=== PATIENT | male | born 1960 | race Two or more races ===

== ENCOUNTER 2020-06-01 09:52 | Outpatient (REF) | payer OTHER, SELFPAY ==
--- NOTE | 2020-06-01 09:59 | XR_ITS ---
EXAMINATION: XR CERVICAL SPINE XR LUMBAR SPINE CLINICAL INFORMATION: Neck and low back pain. COMPARISON: Lumbar spine study of 12/06/2011. TECHNIQUE: Three-view lumbar spine and five-view cervical spine. FINDINGS: There is no evidence of acute fracture of the cervical spine. No abnormal prevertebral soft tissue swelling is seen. There is narrowing of the C2-C3, C4-C5, and C6-C7 disc spaces with marginal spurring. There is partial fusion of the C2 and C3 vertebral bodies. Multilevel degenerative spurring is present. There is some anterior neural foramina encroachment related to spurring of the joints of [place] on the right at the C6-C7 disc space level and on the left at the C3-C4 disc space. Degenerative facet changes are seen C3 through C6 bilaterally. There are 5 nonrib-bearing lumbar vertebra. There is scoliosis convex right. No acute fracture, spondylolisthesis, or spondylolysis is present. There is bilateral facet arthropathy at the L5-S1 level and on the left side at the L3-L4 level. There is disc space narrowing seen at the L3-L4 level. Pedicles are intact. Sacroiliac joints appear unremarkable. The above findings have increased since study of 12/06/2011. XR/XR cervical spine min 6V IMPRESSION: Cervical spondylosis as described without evidence of acute fracture. Some progression in degenerative disc disease with facet arthropathy in the lumbar spine without acute fracture, spondylolisthesis, or spondylolysis identified.
--- NOTE | 2020-06-01 10:01 | XR_ITS ---
EXAMINATION: XR CERVICAL SPINE XR LUMBAR SPINE CLINICAL INFORMATION: Neck and low back pain. COMPARISON: Lumbar spine study of 12/06/2011. TECHNIQUE: Three-view lumbar spine and five-view cervical spine. FINDINGS: There is no evidence of acute fracture of the cervical spine. No abnormal prevertebral soft tissue swelling is seen. There is narrowing of the C2-C3, C4-C5, and C6-C7 disc spaces with marginal spurring. There is partial fusion of the C2 and C3 vertebral bodies. Multilevel degenerative spurring is present. There is some anterior neural foramina encroachment related to spurring of the joints of [place] on the right at the C6-C7 disc space level and on the left at the C3-C4 disc space. Degenerative facet changes are seen C3 through C6 bilaterally. There are 5 nonrib-bearing lumbar vertebra. There is scoliosis convex right. No acute fracture, spondylolisthesis, or spondylolysis is present. There is bilateral facet arthropathy at the L5-S1 level and on the left side at the L3-L4 level. There is disc space narrowing seen at the L3-L4 level. Pedicles are intact. Sacroiliac joints appear unremarkable. The above findings have increased since study of 12/06/2011. XR/XR lumbar spine 2-3V IMPRESSION: Cervical spondylosis as described without evidence of acute fracture. Some progression in degenerative disc disease with facet arthropathy in the lumbar spine without acute fracture, spondylolisthesis, or spondylolysis identified.
== END 2020-06-01 09:53 | disposition home or self-care (01) ==
LOC: HO.XRAY 09:52
PROVIDERS: Visit Provider Chiropractor
DX: M54.2 Cervicalgia (principal); M54.5 Low back pain
CPT/HCPCS: 72052; 72100

== ENCOUNTER 2020-07-12 09:55 | Outpatient (REF) | payer OTHER, SELFPAY ==
--- NOTE | 2020-07-12 09:59 | XR_ITS ---
EXAMINATION: XR CHEST CLINICAL INFORMATION: E78.5 - Hyperlipidemia, unspecified COMPARISON: None TECHNIQUE: 2 views of the chest were obtained. FINDINGS: Heart is within limits of normal size. The vascularity is normal. There is no airspace consolidation or effusion. The costophrenic sulci are clear. There is a subtle midline retrocardiac density on frontal view similar to prior study, likely hiatal hernia. The hilar contours and bony structures are unremarkable. XR/XR chest 2V IMPRESSION: No acute intrathoracic disease. Probable sliding hiatal hernia.
[2020-07-12 11:22] LABS: MANUAL DIFF FLAG NO
[2020-07-12 11:41] LABS: Basophils Percent Auto 0.2 % (0-2); Eosinophils Absolute Auto 0.1 X10*3/uL (0.0-0.4); Eosinophils Percent Auto 0.8 % (0-4); Hematocrit 42.1 % (42-52); Hemoglobin 13.8 g/dl (14.0-18.0); Imm Gran Abs Auto 0.03 X10*3/uL (0.00-0.03); Imm Gran Pct Auto 0.4 % (0.0-0.4); Lymphocytes Absolute Auto 1.6 X10*3/uL (1.2-4.9); Lymphocytes Percent Auto 18.9 % (20-40); Mean Corpuscular HGB Conc 32.8 g/dl (31.0-36.0); Mean Corpuscular Volume 91.5 fL (80-98); Mean Platelet Volume 9.7 fL (9.4-12.4); Monocytes Absolute Auto 0.6 X10*3/uL (0.1-1.2); Monocytes Percent Auto 6.8 % (2-11); Neutrophils Percent Auto 72.9 % (45-73); Platelet Count 351 X10*3/uL (160-400); Red Cell Distribution Width 13.3 % (11.0-16.0); White Blood Count 8.2 X10*3/uL (4.8-10.8)
[2020-07-12 11:45] LABS: Estimated Average Glucose 128 mg/dL; Hemoglobin A1c % 6.1 %
[2020-07-12 12:04] LABS: Creatinine Urine 285.36 mg/dL; Microalbum/Creatinine Ratio Ur 5.9 ug/mg cr
[2020-07-12 12:05] LABS: B Type Natriuretic Peptide 23 pg/mL (<100)
[2020-07-12 12:07] LABS: TSH reflex Free T4 (Prenatal) 1.85 mIU/mL
[2020-07-12 12:12] LABS: Alanine Aminotransferase 28 U/L (0-40); Albumin Level 4.2 g/dL (3.5-5.0); Alkaline Phosphatase 106 U/L (39-117); Anion Gap 14 (12-20); Aspartate Amino Transferase 19 U/L (5-37); Bilirubin Total 0.6 mg/dL (0.0-1.0); Blood Urea Nitrogen 19 mg/dL (9-16); Calcium 9.1 mg/dL (8.4-10.2); Carbon Dioxide 24 mmol/L (22-29); Chloride 107 mmol/L (96-108); Cholesterol 179 mg/dL; Estimated Glomerular Filt Rate > 60; Glucose Fasting 135 mg/dL (60-99); HDL Cholesterol 45 mg/dL; Iron 118 mcg/dL (45-160); LDL Cholesterol Calculated 83 mg/dl; Percent Iron Saturation 30 % (15-50); Potassium 4.2 mmol/l (3.3-5.1); Sodium 141 mmol/L (135-145); Total Iron Binding Capacity 395 mcg/dL (228-428); Triglycerides 259 mg/dL; Unsaturated Iron Binding 277 ug/dL
== END 2020-07-12 09:56 | disposition home or self-care (01) ==
LOC: HO.HMGCX 09:55
PROVIDERS: PCP Internal Medicine; Visit Provider Internal Medicine
DX: E78.5 Hyperlipidemia, unspecified (principal); R00.2 Palpitations; D64.9 Anemia, unspecified; E11.9 Type 2 diabetes mellitus without complications; I47.1 Supraventricular tachycardia; R06.00 Dyspnea, unspecified
CPT/HCPCS: 36415; 71046; 80053; 80061; 82043; 83036; 83540; 83880; 85025

== ENCOUNTER → 2020-08-01 09:23 | Outpatient (BNVA) | payer OTHER, SELFPAY | PROVIDERS: PCP Internal Medicine; Visit Provider Internal Medicine Cardiovascular Disease | DX: R07.89 Other chest pain (principal); I10 Essential (primary) hypertension; R06.00 Dyspnea, unspecified; R00.2 Palpitations | CPT/HCPCS: 93005; 99202 ==

== ENCOUNTER → 2020-08-02 08:35 | Outpatient (REF) | payer OTHER, SELFPAY ==
--- NOTE | 2020-08-02 08:48 | CA_ITS ---
Transthoracic Echocardiogram Patient (Last, First, Middle): Cuong Sr, Gender: Male Date of : 1960 Age: 60 Procedure Date: 08/02/2020 Procedure Type: Transthoracic Echocardiogram Location: OP Height: 182.88 cm Weight: 119.75 kg BSA: 2.40 m2 Heart Rate: bpm BP: 124 / 80 mmHg Taxonomist: Referring MD: Jasbir Galaviz MD Roof Tile Layer: Brennan Lema MD Symptoms: R06.00 - Dyspnea, unspecified Study Quality: Fair ECG Rhythm: Sinus Conclusions: - Essentially normal study Findings Left Ventricle The visually estimated ejection fraction is between 65-70%. Diastolic function is normal for age. Right Ventricle Normal right ventricular cavity size and systolic function. Atria Both atria are normal in size. Interatrial shunt cannot be excluded. Aortic Valve There is mild calcification of the aortic valve. There is no aortic valve stenosis. There is no aortic valve regurgitation. Mitral Valve Likely normal mitral valve structure and function. There is trace mitral valve regurgitation. There is no mitral valve stenosis. Pulmonic Valve The pulmonic valve was not well visualized. Tricuspid Valve Likely normal tricuspid valve structure and function. There is trace tricuspid valve regurgitation. The right ventricular systolic pressure is normal. The right ventricular systolic pressure is 28 mmHg. Normal right atrial pressure. There is no evidence of pulmonary hypertension. Great Vessels All visible segments of the aorta are normal in size. The pulmonary artery was not well visualized. Venous The inferior vena cava is normal in size and collapses greater than 50% with inspiration. Pericardium/Pleural There is no evidence of pericardial effusion. Prior Study Comparison No previous study in the last 5 years for comparison Measurements 2D Linear Measurements IVSd: 1.22 0.6-0.9/0.6-1.0 cm LVIDd: 4.05 3.9-5.3/4.2-5.9 cm LVIDd Index: 1.69 2.4-3.2/2.2-3.1 cm/m2 LVIDs: 2.46 2.0-3.6 cm LVPWd: 1.22 0.7-1.1 cm Ao Root: 3.60 2.1-3.5 cm LA Diam: 3.20 2.7-3.8/3.0-4.0 cm LAIDs Index: 1.33 1.5-2.3 cm/m2 LV Mass: 215.21 67-162/88-224 g LV Mass Index: 89.67 43-95/49-115 g/m2 LVOT Diam: 2.20 3.0+(-)1.3 cm 2D Systolic Function EF 4C: 72.60 >55% EF 2C: 72.70 >55% EF BiP: 73.10 >55% Mitral Valve MV Pk E: 0.81 MV PK A: 0.68 MV Decel Time: 169.00 E/A: 1.20 E'Lateral: 8.12 E'Medial: 7.54 E/E' Med: 10.70 E/E' Lat: 10.00 PHT: 50.00 MVA PHT: 4.40 Decel [place]: 4.79 Aortic Valve AoV Pk Amish: 1.45 AoV Mn Amish: 1.01 AoV VTI: 0.31 AoV Pk Grad: 8.00 Aov Mn Grad: 5.00 KACEY Cont.VTI: 2.45 LVOT LVOT Pk Amish: 1.03 LVOT Mn Amish: 0.70 LVOT VTI: 0.20 LVOT Pk Grad: 4.00 LVOT Mn Grad: 2.00 LVOT Diam: 2.20 LVOT Area: 3.80 Diastolic Function MV Pk E: 0.81 MV Pk A: 0.68 E/A: 1.20 E'Medial: 7.54 E/E' Med: 10.70 E' Laterial: 8.12 E/E' Lat: 10.00 Tricuspid Valve TR Pk Amish: 2.48 TR Pk Grad: 25.00 RA Press: 3.00 RVSP: 28.00 Great Vessels Aorta Ao Root-2D: 3.60 2.0-3.7 cm Ao Asc: 3.50 2.1-3.4 cm Pulmonary Valve PV Pk Amish: 0.96 Peak PV Grad: 4.00 Updated in Other Vendor System with Status of Final Brennan Lema MD electronically signed on 08/02/2020 5:44:14 PM with status of Final
== END ==
LOC: HO.CARD 08:35
PROVIDERS: Visit Provider Internal Medicine Cardiovascular Disease
DX: R06.00 Dyspnea, unspecified (principal)
CPT/HCPCS: 93306

== ENCOUNTER → 2020-08-22 10:04 | Outpatient (BNVA) | payer OTHER, SELFPAY | PROVIDERS: Visit Provider Internal Medicine Cardiovascular Disease | DX: R07.89 Other chest pain (principal); R06.00 Dyspnea, unspecified; R00.2 Palpitations | CPT/HCPCS: 99212 ==

== ENCOUNTER → 2020-09-06 12:59 | Outpatient (REF) | payer OTHER, SELFPAY ==
--- NOTE | 2020-09-06 13:02 | HM_ITS ---
TEST PERFORMED: Cardiac event monitoring. REQUESTING PHYSICIAN: Dr. Galaviz. INDICATION: Palpitations. ENROLLMENT PERIOD: 09/06/2020 to 10/06/2020 - 30 days. FINDINGS: In the above monitoring period, the underlying rhythm was sinus. There were some episodes of sinus tachycardia. Of note, there was a narrow complex tachycardia on September 25 at a rate of 180 beats per minute, that looks like supraventricular tachycardia, possibly of AVNRT type. In some of the EKG strips, there is evidence of right bundle branch, incomplete pattern. During the time of the SVT, again there is evidence of incomplete right bundle-branch block pattern in some strips, but not all of them. CONCLUSION: Study positive for supraventricular tachycardia. Tyler Franco MD HS/CHIKIS / [id number] MTDD
== END ==
LOC: HO.CARD 12:59
PROVIDERS: Visit Provider Internal Medicine Cardiovascular Disease
DX: R00.2 Palpitations (principal)
CPT/HCPCS: 93270; 93272

== ENCOUNTER 2020-09-25 10:16 | Emergency (ER) | payer OTHER, SELFPAY ==
--- NOTE | 2020-09-25 | ECG_ITS ---
Test Reason : PALPITATIONS Blood Pressure : / mmHG Vent. Rate : 102 BPM Atrial Rate : 102 BPM P-R Int : 160 ms QRS Dur : 090 ms QT Int : 320 ms P-R-T Axes : 033 016 048 degrees QTc Int : 417 ms Sinus tachycardia Otherwise normal ECG When compared to the previous EKG of 25 september 2020, rhythm change Referred By: Chase Mendoza Electronically Signed By:BRIANA MISHRA
--- NOTE | ~2020-09-25 | XR_ITS ---
EXAMINATION: XR CHEST CLINICAL INFORMATION: Palpitations COMPARISON: Previous chest x-ray most recent July 2020 TECHNIQUE: Frontal view of the chest was obtained. FINDINGS: The cardiac and mediastinal contours are stable. Density overlying the lower spine and heart border probably representing an esophageal hernia appears unchanged. The lungs are clear. There is no pleural effusion or pneumothorax. Bony structures are unremarkable. XR/XR chest 1V IMPRESSION: No evidence for acute disease in the chest. Probable esophageal hernia similar to previous chest x-ray.
[2020-09-25 10:31] VITALS: BP 103/63; PULSE 160; RESP 20; O2SAT 97; BMI 38.0
--- NOTE | 2020-09-25 10:47 | ECG_ITS ---
Test Reason : RAPID HEART RATE Blood Pressure : / mmHG Vent. Rate : 149 BPM Atrial Rate : 156 BPM P-R Int : 000 ms QRS Dur : 100 ms QT Int : 294 ms P-R-T Axes : 000 015 056 degrees QTc Int : 463 ms Supraventricular tachycardia Otherwise normal ECG When compared with ECG of 08-NOV-2013 19:43, Vent. rate has increased BY 50 BPM Referred By: Generic ED Physician Electronically Signed By:BRIANA MISHRA
--- NOTE | 2020-09-25 10:59 | ED_ITS ---
HPI - Arrhythmia/Palpitations General Chief Complaint: Arrhythmia/Palpitations Stated Complaint: palpitations Time Seen by Provider: 09/25/20 10:49 History of Present Illness HPI narrative: palpitation complaint: rapid heart beat and heart racing Onset (ago): hour(s) (2) Duration: constant Severity: moderate Related Data Home Medications Medication Instructions Recorded Confirmed atorvastatin 20 mg tablet 20 mg PO BEDTIME 07/08/20 08/19/20 blood sugar diagnostic #10 ea 07/08/20 08/19/20 ferrous sulfate 325 mg (65 mg 325 mg PO BID 07/08/20 08/19/20 iron) tablet lancets 28 gauge #100 ea 07/08/20 08/19/20 metformin 500 mg tablet,extended 500 mg PO BEDTIME 07/08/20 08/19/20 release 24 hr metoprolol succinate 25 mg 25 mg PO DAILY 07/08/20 08/19/20 tablet,extended release 24 hr omeprazole 20 mg capsule,delayed 20 mg PO DAILY 07/08/20 08/19/20 release Previous Rx's Medication Instructions Recorded zolpidem 10 mg tablet 10 mg PO BEDTIME PRN #15 tab 06/30/20 cholecalciferol (vitamin D3) 50 50 mcg PO DAILY #90 cap 07/07/20 mcg (2,000 unit) capsule melatonin 5 mg capsule See Rx Instructions PO .QHS #60 cap 07/08/20 furosemide 20 mg tablet 20 mg PO DAILY #30 tab 08/01/20 trazodone 50 mg tablet 50 mg PO BEDTIME PRN #30 tab 08/19/20 vitamin B12 1,000 mcg-folic acid 1 radha SUBLINGUAL .QD #30 ea 08/19/20 400 mcg sublingual lozenge colchicine 0.6 mg tablet 0.6 mg PO DAILY #90 tab 09/17/20 Allergies Allergy/AdvReac Type Severity Reaction Status Date / Time No Known Allergies Allergy Verified 08/22/20 10:09 Review of Systems Review of Systems: Yes all other systems are reviewed and are negative Cardiovascular: Comments: palpitations Respiratory: Respiratory: Reports no additional respiratory complaints Musculoskeletal: Musculoskeletal: Reports no additional musculoskeletal complaints PMFSH Past Medical History Medical History Anemia Diabetes BRADSHAW (dyspnea on exertion) GERD (gastroesophageal reflux disease) Hyperlipidemia Insomnia Normal colonoscopy Obesity STEPH (obstructive sleep apnea) Palpitations SVT (supraventricular tachycardia) Surgical History H/O colonoscopy H/O endoscopy Lipoma of back Family History Family History Father Throat cancer Mother No problems noted. Maternal Grandmother No problems noted. Maternal Grandfather No problems noted. Paternal Grandmother No problems noted. Paternal Grandfather No problems noted. Brother History of open heart surgery Social History Social History Alcohol intake: unknown Smoking Status: Unknown if ever smoked Use of substances other than those prescribed or required for medical reasons: Unknown Advance Directives: No Advance Directives Information Provided: No Physical Exam Vital Signs: Vital Signs: Last Vital Signs Pulse 80 09/25/20 12:16 Resp 16 09/25/20 12:16 BP 109/74 09/25/20 12:16 Pulse Ox 99 09/25/20 12:16 Body Mass Index 38.0 Const: General: cooperative and healthy appearing Orientation/consciousness: oriented to person, oriented to place, oriented to time and patient oriented x3 HENMT: Head: Yes normal to inspection Eyes: General: appearance normal, both eyes and all related structures Neck: Neck: Yes normal visual inspection Chest: Chest palpation & inspection: normal inspection of the chest Resp: Effort & Inspection: normal respiratory effort Cardio: Rate: regular rate Rhythm: regular rhythm GI: Inspection: Yes normal to inspection Skin: General skin exam: no rashes or lesions noted Neuro: General: oriented to person, oriented to place, oriented to time, patient oriented x3 and gait normal Course Reevaluation(s) Reevaluation #1: Patient was given 6 mg IV of adenosine with the compression to normal sinus rhythm confirmed by 12 lead EKG Time: 11:11 Reevaluation #2: Patient remained in sinus rhythm a completely asymptomatic at this time will discharge him home . Take a test message was sent to do so [place] Time: 12:18 MDM - Arrhythmia/Palpitations Lab Data Result diagrams: 09/25/20 10:51 09/25/20 10:51 Labs: Lab Results 09/25/20 09/25/20 09/25/20 Range/Units 10:51 10:51 10:51 WBC 11.4 H (4.8-10.8) X10*3/uL RBC 4.01 L (4.60-5.80) X10*6/uL Hgb 12.5 L (14.0-18.0) g/dl Hct 37.7 L (42-52) % MCV 94.0 (80-98) fL MCH 31.2 (27.0-33.0) pg MCHC 33.2 (31.0-36.0) g/dl RDW 12.9 (11.0-16.0) % Plt Count 421 H (160-400) X10*3/uL MPV 9.4 (9.4-12.4) fL Immature Gran % (Auto) 0.4 (0.0-0.4) % Neut % (Auto) 82.5 H (45-73) % Lymph % (Auto) 10.8 L (20-40) % [place] % (Auto) 4.7 (2-11) % Eos % (Auto) 1.3 (0-4) % Baso % (Auto) 0.3 (0-2) % Lymph # (Auto) 1.2 (1.2-4.9) X10*3/uL [place] # (Auto) 0.5 (0.1-1.2) X10*3/uL Eos # (Auto) 0.2 (0.0-0.4) X10*3/uL Baso # (Auto) 0.0 (0.0-0.2) X10*3/uL Abs Immat Gran (auto) 0.05 H (0.00-0.03) X10*3/uL Absolute Neuts (auto) 9.4 H (2.0-8.3) X10*3/uL Absolute Nucleated RBC 0.000 (0.0-0.012) X10*3/uL Nucleated RBC % (auto) 0.0 (0.0-0.2) /100WBC Hold Blue Top SEE NOTE Sodium 138 (135-145) mmol/L Potassium 4.8 (3.3-5.1) mmol/L Chloride 104 (96-108) mmol/L Carbon Dioxide 20 L (22-29) mmol/L Anion Gap 19 (12-20) BUN 21 H (9-16) mg/dL Creatinine 1.07 (0.5-1.4) mg/dL Estim Creat Clear Calc 91.9 Estimated GFR > 60 Random Glucose 212 H (60-115) mg/dL Calcium 8.6 (8.4-10.2) mg/dL Troponin I High Sens (<3.5-35.0) ng/L 09/25/20 Range/Units 10:51 WBC (4.8-10.8) X10*3/uL RBC (4.60-5.80) X10*6/uL Hgb (14.0-18.0) g/dl Hct (42-52) % MCV (80-98) fL MCH (27.0-33.0) pg MCHC (31.0-36.0) g/dl RDW (11.0-16.0) % Plt Count (160-400) X10*3/uL MPV (9.4-12.4) fL Immature Gran % (Auto) (0.0-0.4) % Neut % (Auto) (45-73) % Lymph % (Auto) (20-40) % [place] % (Auto) (2-11) % Eos % (Auto) (0-4) % Baso % (Auto) (0-2) % Lymph # (Auto) (1.2-4.9) X10*3/uL [place] # (Auto) (0.1-1.2) X10*3/uL Eos # (Auto) (0.0-0.4) X10*3/uL Baso # (Auto) (0.0-0.2) X10*3/uL Abs Immat Gran (auto) (0.00-0.03) X10*3/uL Absolute Neuts (auto) (2.0-8.3) X10*3/uL Absolute Nucleated RBC (0.0-0.012) X10*3/uL Nucleated RBC % (auto) (0.0-0.2) /100WBC Hold Blue Top Sodium (135-145) mmol/L Potassium (3.3-5.1) mmol/L Chloride (96-108) mmol/L Carbon Dioxide (22-29) mmol/L Anion Gap (12-20) BUN (9-16) mg/dL Creatinine (0.5-1.4) mg/dL Estim Creat Clear Calc Estimated GFR Random Glucose (60-115) mg/dL Calcium (8.4-10.2) mg/dL Troponin I High Sens < 3.5 (<3.5-35.0) ng/L ECG Data Attestation: I personally reviewed and interpreted this ECG as follows: Pacemaker model: SVT rate 150 no ischemic changes Critical Care Time Critical Care Time Critical Care Time: Yes Total Critical Care Time: 30 Attestation: Administration of adenosine IV Discharge Plan Discharge Clinical Impression: SVT (supraventricular tachycardia) Patient Disposition: Home, Self-Care Instructions: Supraventricular Tachycardia (ED) Additional Instructions: Please follow-up with membership counselor tomorrow, you did have an arrhythmia called supraventricular tachycardia Prescriptions: No Action zolpidem 10 mg tablet 10 mg PO BEDTIME PRN (Reason: insomnia) Qty: 15 RF: 0 cholecalciferol (vitamin D3) 50 mcg (2,000 unit) capsule 50 mcg PO DAILY Qty: 90 RF: 2 colchicine 0.6 mg tablet 0.6 mg PO DAILY Qty: 90 RF: 3 ferrous sulfate 325 mg (65 mg iron) tablet 325 mg PO BID RF: 0 metformin 500 mg tablet extended release 24 hr 500 mg PO BEDTIME RF: 0 atorvastatin 20 mg tablet 20 mg PO BEDTIME RF: 0 metoprolol succinate 25 mg tablet extended release 24 hr 25 mg PO DAILY RF: 0 omeprazole 20 mg capsule,delayed release(DR/EC) 20 mg PO DAILY RF: 0 (DME) FreeStyle Lite Strips Strip See Rx Instructions strip Not Applicable BID Qty: 10 RF: 0 (DME) lancets 28 gauge misc See Rx Instructions ea topical BID Qty: 100 RF: 0 melatonin 5 mg capsule See Rx Instructions PO .QHS Qty: 60 RF: 4 trazodone 50 mg tablet 50 mg PO BEDTIME PRN (Reason: sleep) Qty: 30 RF: 2 vitamin O18-uwogw acid 1,000-400 mcg lozenge 1 radah sublingual .QD Qty: 30 RF: 6 furosemide 20 mg tablet 20 mg PO DAILY Qty: 30 RF: 3 Referrals: Tyler Franco MD [Physician] - 2 days
[2020-09-25 11:05] LABS: MANUAL DIFF FLAG NO
--- NOTE | 2020-09-25 11:10 | PC.NURSE ---
pt from triage with rapid HR 160's. He reports chest pain ad dizziness. IV established, labs drawn and sent. EKG obtained. MD to bedside, pt on monitor. 6M adenosine administered. Pt now sinus tachycardia rate 94. he states chest pain is better and he is slightly dizzy.
[2020-09-25 11:16] LABS: Basophils Percent Auto 0.3 % (0-2); Eosinophils Absolute Auto 0.2 X10*3/uL (0.0-0.4); Eosinophils Percent Auto 1.3 % (0-4); Hematocrit 37.7 % (42-52); Hemoglobin 12.5 g/dl (14.0-18.0); Imm Gran Abs Auto 0.05 X10*3/uL (0.00-0.03); Imm Gran Pct Auto 0.4 % (0.0-0.4); Lymphocytes Absolute Auto 1.2 X10*3/uL (1.2-4.9); Lymphocytes Percent Auto 10.8 % (20-40); Mean Corpuscular HGB Conc 33.2 g/dl (31.0-36.0); Mean Corpuscular Hemoglobin 31.2 pg (27.0-33.0); Mean Platelet Volume 9.4 fL (9.4-12.4); Monocytes Absolute Auto 0.5 X10*3/uL (0.1-1.2); Monocytes Percent Auto 4.7 % (2-11); Neutrophils Absolute Auto 9.4 X10*3/uL (2.0-8.3); Neutrophils Percent Auto 82.5 % (45-73); Platelet Count 421 X10*3/uL (160-400); Red Blood Count 4.01 X10*6/uL (4.60-5.80); Red Cell Distribution Width 12.9 % (11.0-16.0); White Blood Count 11.4 X10*3/uL (4.8-10.8)
[2020-09-25 11:26] LABS: Anion Gap 19 (12-20); Blood Urea Nitrogen 21 mg/dL (9-16); Calcium 8.6 mg/dL (8.4-10.2); Carbon Dioxide 20 mmol/L (22-29); Chloride 104 mmol/L (96-108); Creatinine Clr Calc Pharmacy 91.9; Estimated Glomerular Filt Rate > 60; Glucose Random 212 mg/dL (60-115); Potassium 4.8 mmol/L (3.3-5.1); Sodium 138 mmol/L (135-145)
[2020-09-25 11:31] LABS: Troponin-I High Sensitivity < 3.5 ng/L (<3.5-35.0)
[2020-09-25 11:57] VITALS: BP 123/74; PULSE 85; RESP 15; O2SAT 99
[2020-09-25 12:16] VITALS: BP 109/74; PULSE 80; RESP 16; O2SAT 99
--- NOTE | 2020-09-25 12:17 | PC.NURSE ---
resting quietly. nsr on monitor. denies all sx. awaits return call from cardio. skin pwd.
== END 2020-09-25 13:04 | disposition home or self-care (01) ==
PROVIDERS: Emergency Provider Emergency Medicine; PCP Pediatrics
DX: I47.1 Supraventricular tachycardia (principal); R00.2 Palpitations; E11.9 Type 2 diabetes mellitus without complications; K21.9 Gastro-esophageal reflux disease without esophagitis; E78.5 Hyperlipidemia, unspecified; Z79.82 Long term (current) use of aspirin; Z79.899 Other long term (current) drug therapy; Z79.84 Long term (current) use of oral hypoglycemic drugs
CPT/HCPCS: 36415; 71045; 80048; 84484; 85025; 93005; 96374; 99285; 99291; J0153

== ENCOUNTER → 2020-09-27 12:36 | Outpatient (BNVA) | payer OTHER, SELFPAY | PROVIDERS: PCP Pediatrics; Visit Provider Nurse Practitioner Family | DX: R07.89 Other chest pain (principal); R00.2 Palpitations; I47.1 Supraventricular tachycardia; Z79.899 Other long term (current) drug therapy | CPT/HCPCS: 99212 ==

== ENCOUNTER → 2020-10-27 08:56 | Outpatient (BNVA) | payer OTHER, SELFPAY | PROVIDERS: PCP Pediatrics; Visit Provider Internal Medicine Cardiovascular Disease | DX: I47.1 Supraventricular tachycardia (principal); R07.89 Other chest pain; R06.00 Dyspnea, unspecified | CPT/HCPCS: 99212 ==

== ENCOUNTER 2020-12-02 09:45 | Outpatient (REF) | payer OTHER, SELFPAY ==
[2020-12-02 12:23] LABS: Hematocrit 31.1 % (42-52); Hemoglobin 8.9 g/dl (14.0-18.0); Mean Corpuscular HGB Conc 28.6 g/dl (31.0-36.0); Mean Corpuscular Hemoglobin 24.6 pg (27.0-33.0); Mean Corpuscular Volume 85.9 fL (80-98); Mean Platelet Volume 9.5 fL (9.4-12.4); Platelet Count 494 X10*3/uL (160-400); Red Blood Count 3.62 X10*6/uL (4.60-5.80); Red Cell Distribution Width 15.1 % (11.0-16.0); White Blood Count 7.7 X10*3/uL (4.8-10.8)
[2020-12-02 12:35] LABS: Estimated Average Glucose 111 mg/dL; Hemoglobin A1c % 5.5 %
[2020-12-02 13:07] LABS: Alanine Aminotransferase 15 U/L (0-40); Albumin Level 3.8 g/dL (3.5-5.0); Alkaline Phosphatase 102 U/L (39-117); Anion Gap 14 (12-20); Aspartate Amino Transferase 15 U/L (5-37); Bilirubin Total 0.4 mg/dL (0.0-1.0); Blood Urea Nitrogen 15 mg/dL (9-16); Calcium 8.9 mg/dL (8.4-10.2); Carbon Dioxide 24 mmol/L (22-29); Chloride 107 mmol/L (96-108); Cholesterol 170 mg/dL; Estimated Glomerular Filt Rate > 60; Glucose Fasting 125 mg/dL (60-99); HDL Cholesterol 40 mg/dL; Iron 14 mcg/dL (45-160); LDL Cholesterol Calculated 104 mg/dl; Percent Iron Saturation 3 % (15-50); Potassium 4.9 mmol/L (3.3-5.1); Sodium 140 mmol/L (135-145); Total Iron Binding Capacity 453 mcg/dL (228-428); Total Protein 6.5 g/dL (6.5-8.0); Triglycerides 133 mg/dL; Unsaturated Iron Binding 439 ug/dL
[2020-12-02 13:14] LABS: Vitamin B12 < 146 pg/mL (200-900)
[2020-12-02 13:31] LABS: Creatinine Urine 180.23 mg/dL; Microalbum/Creatinine Ratio Ur 3.3 ug/mg cr
== END 2020-12-02 09:46 | disposition home or self-care (01) ==
LOC: HO.HMGCLDS 09:45
PROVIDERS: PCP Internal Medicine; Visit Provider Internal Medicine
DX: I47.1 Supraventricular tachycardia (principal); E11.9 Type 2 diabetes mellitus without complications; E78.5 Hyperlipidemia, unspecified
CPT/HCPCS: 36415; 80053; 80061; 82043; 82607; 83036; 83540; 85027

== ENCOUNTER 2021-02-27 08:54 | Outpatient (REF) | payer OTHER, SELFPAY ==
[2021-02-27 11:18] LABS: Hematocrit 38.9 % (42-52); Hemoglobin 12.1 g/dl (14.0-18.0); Mean Corpuscular HGB Conc 31.1 g/dl (31.0-36.0); Mean Corpuscular Hemoglobin 26.4 pg (27.0-33.0); Mean Corpuscular Volume 84.9 fL (80-98); Mean Platelet Volume 9.7 fL (9.4-12.4); Platelet Count 369 X10*3/uL (160-400); Red Blood Count 4.58 X10*6/uL (4.60-5.80); Red Cell Distribution Width 17.4 % (11.0-16.0); White Blood Count 8.2 X10*3/uL (4.8-10.8)
[2021-02-27 11:46] LABS: Alanine Aminotransferase 28 U/L (0-40); Albumin Level 3.8 g/dL (3.5-5.0); Alkaline Phosphatase 115 U/L (39-117); Anion Gap 13 (12-20); Aspartate Amino Transferase 19 U/L (5-37); Bilirubin Total 0.3 mg/dL (0.0-1.0); Blood Urea Nitrogen 13 mg/dL (9-16); Calcium 8.9 mg/dL (8.4-10.2); Carbon Dioxide 24 mmol/L (22-29); Chloride 105 mmol/L (96-108); Cholesterol 186 mg/dL; Estimated Glomerular Filt Rate > 60; Glucose Fasting 143 mg/dL (60-99); HDL Cholesterol 40 mg/dL; Iron 29 mcg/dL (45-160); LDL Cholesterol Calculated 110 mg/dl; Percent Iron Saturation 8 % (15-50); Potassium 4.4 mmol/L (3.3-5.1); Sodium 138 mmol/L (135-145); Total Iron Binding Capacity 385 mcg/dL (228-428); Total Protein 7.1 g/dL (6.5-8.0); Triglycerides 182 mg/dL; Unsaturated Iron Binding 356 ug/dL
[2021-02-27 11:48] LABS: Creatinine Urine 156.52 mg/dL; Microalbumin Urine < 5.0 mg/L
[2021-02-27 12:14] LABS: Estimated Average Glucose 126 mg/dL
[2021-02-27 12:18] LABS: Folate 10.2 ng/mL (> or = 4.0); Vitamin B12 378 pg/mL (200-900)
== END 2021-02-27 08:55 | disposition home or self-care (01) ==
LOC: HO.HMGCLDS 08:54
PROVIDERS: PCP Internal Medicine; Visit Provider Internal Medicine
DX: Z00.00 Encounter for general adult medical examination without abnormal findings (principal); D64.9 Anemia, unspecified; E11.9 Type 2 diabetes mellitus without complications; E78.5 Hyperlipidemia, unspecified; G47.33 Obstructive sleep apnea (adult) (pediatric)
CPT/HCPCS: 36415; 80053; 80061; 82043; 82607; 82746; 83036; 83540; 85027

== ENCOUNTER → 2021-04-18 14:02 | Outpatient (BNVA) | payer OTHER, SELFPAY | PROVIDERS: PCP Internal Medicine; Referring Provider Internal Medicine; Visit Provider Nurse Practitioner Family | DX: I47.1 Supraventricular tachycardia (principal); R07.89 Other chest pain; E66.9 Obesity, unspecified | CPT/HCPCS: 99212 ==

== ENCOUNTER 2022-01-18 09:29 | Outpatient (REF) | payer OTHER, SELFPAY ==
[2022-01-18 11:16] LABS: Hematocrit 42.2 % (42.0-52.0); Mean Corpuscular HGB Conc 33.2 g/dl (31.0-36.0); Mean Corpuscular Hemoglobin 29.9 pg (27.0-33.0); Mean Corpuscular Volume 90.2 fL (80.0-98.0); Mean Platelet Volume 9.6 fL (9.4-12.4); Platelet Count 322 X10*3/uL (160-400); Red Blood Count 4.68 X10*6/uL (4.60-5.80); Red Cell Distribution Width 13.2 % (11.0-16.0); White Blood Count 7.7 X10*3/uL (4.8-10.8)
[2022-01-18 11:57] LABS: Vitamin B12 1016 pg/mL (200-900)
[2022-01-18 12:03] LABS: Iron 45 mcg/dL (45-160); Percent Iron Saturation 12 % (15-50); Total Iron Binding Capacity 375 mcg/dL (228-428); Unsaturated Iron Binding 330 ug/dL
[2022-01-19 12:04] LABS: Estimated Average Glucose 140 mg/dL; Hemoglobin A1c % 6.5 %
[2022-01-19 12:11] LABS: Alanine Aminotransferase 28 U/L (0-40); Albumin Level 3.9 g/dL (3.5-5.0); Alkaline Phosphatase 108 U/L (39-117); Anion Gap 14 (12-20); Aspartate Amino Transferase 20 U/L (5-37); Bilirubin Total 0.4 mg/dL (0.0-1.0); Blood Urea Nitrogen 12 mg/dL (9-16); Carbon Dioxide 25 mmol/L (22-29); Chloride 103 mmol/L (96-108); Cholesterol 201 mg/dL; Estimated Glomerular Filt Rate > 60; Glucose Random 143 mg/dL (60-115); HDL Cholesterol 37 mg/dL; LDL Cholesterol Calculated 127 mg/dl; Potassium 4.4 mmol/L (3.3-5.1); Sodium 138 mmol/L (135-145); Triglycerides 189 mg/dL
== END 2022-01-18 09:30 | disposition home or self-care (01) ==
LOC: HO.HMGCLDS 09:29
PROVIDERS: Visit Provider Internal Medicine
DX: Z00.00 Encounter for general adult medical examination without abnormal findings (principal); E11.9 Type 2 diabetes mellitus without complications; E78.5 Hyperlipidemia, unspecified; G47.33 Obstructive sleep apnea (adult) (pediatric); D64.9 Anemia, unspecified
CPT/HCPCS: 36415; 80053; 80061; 82607; 83036; 83540; 85027

== ENCOUNTER 2022-03-06 09:01 | Outpatient (REF) | payer OTHER, SELFPAY ==
[2022-03-06 12:08] LABS: Alanine Aminotransferase 27 U/L (0-40); Albumin Level 3.8 g/dL (3.5-5.0); Alkaline Phosphatase 106 U/L (39-117); Anion Gap 16 (12-20); Aspartate Amino Transferase 18 U/L (5-37); Bilirubin Total 0.4 mg/dL (0.0-1.0); Blood Urea Nitrogen 19 mg/dL (9-16); Calcium 8.5 mg/dL (8.4-10.2); Carbon Dioxide 24 mmol/L (22-29); Chloride 103 mmol/L (96-108); Cholesterol 190 mg/dL; Estimated Glomerular Filt Rate > 60; Glucose Random 134 mg/dL (60-115); HDL Cholesterol 34 mg/dL; LDL Cholesterol Calculated 114 mg/dl; Potassium 4.4 mmol/L (3.3-5.1); Sodium 139 mmol/L (135-145); Total Protein 6.7 g/dL (6.5-8.0); Triglycerides 213 mg/dL
== END 2022-03-06 09:02 | disposition home or self-care (01) ==
LOC: HO.HMGCLDS 09:01
PROVIDERS: PCP Internal Medicine; Visit Provider Internal Medicine
DX: E11.9 Type 2 diabetes mellitus without complications (principal)
CPT/HCPCS: 36415; 80053; 80061

== ENCOUNTER 2022-08-02 09:04 | Outpatient (REF) | payer OTHER, SELFPAY ==
[2022-08-02 12:07] LABS: Alanine Aminotransferase 32 U/L (0-40); Albumin Level 3.9 g/dL (3.5-5.0); Alkaline Phosphatase 117 U/L (39-117); Anion Gap 12 (12-20); Aspartate Amino Transferase 22 U/L (5-37); Bilirubin Total 0.6 mg/dL (0.0-1.0); Blood Urea Nitrogen 17 mg/dL (9-16); Calcium 9.1 mg/dL (8.4-10.2); Carbon Dioxide 26 mmol/L (22-29); Chloride 103 mmol/L (96-108); Cholesterol 215 mg/dL; Estimated Glomerular Filt Rate > 60; Glucose Fasting 164 mg/dL (60-99); HDL Cholesterol 33 mg/dL; LDL Cholesterol Calculated 134 mg/dl; Potassium 4.3 mmol/L (3.3-5.1); Sodium 137 mmol/L (135-145); Total Protein 6.9 g/dL (6.5-8.0); Triglycerides 244 mg/dL
[2022-08-02 12:08] LABS: Estimated Average Glucose 143 mg/dL; Hemoglobin A1c % 6.6 %
== END 2022-08-02 09:05 | disposition home or self-care (01) ==
LOC: HO.HMGCLDS 09:04
PROVIDERS: PCP Internal Medicine; Visit Provider Internal Medicine
DX: E11.9 Type 2 diabetes mellitus without complications (principal); E78.5 Hyperlipidemia, unspecified; I10 Essential (primary) hypertension
CPT/HCPCS: 36415; 80053; 80061; 82043; 83036

== ENCOUNTER 2023-07-22 09:47 | Outpatient (REF) | payer OTHER, SELFPAY ==
[2023-07-22 11:39] LABS: MANUAL DIFF FLAG NO
[2023-07-22 11:58] LABS: Basophils Percent Auto 0.3 % (0-2); Eosinophils Absolute Auto 0.2 X10*3/uL (0.0-0.4); Eosinophils Percent Auto 1.4 % (0-4); Hematocrit 25.4 % (42.0-52.0); Imm Gran Abs Auto 0.06 X10*3/uL (0.00-0.03); Imm Gran Pct Auto 0.5 % (0.0-0.4); Lymphocytes Absolute Auto 1.2 X10*3/uL (1.2-4.9); Lymphocytes Percent Auto 10.8 % (20-40); Mean Corpuscular Hemoglobin 18.7 pg (27.0-33.0); Mean Platelet Volume 9.4 fL (9.4-12.4); Monocytes Absolute Auto 0.7 X10*3/uL (0.1-1.2); Monocytes Percent Auto 6.4 % (2-11); NRBC Pct Auto 0.2 /100WBC (0.0-0.2); Neutrophils Absolute Auto 8.9 x10*3/uL (2.0-8.3); Neutrophils Percent Auto 80.6 % (45-73); Platelet Count 544 X10*3/uL (160-400); Red Blood Count 3.53 X10*6/uL (4.60-5.80); Red Cell Distribution Width 18.1 % (11.0-16.0); White Blood Count 11.1 X10*3/uL (4.8-10.8)
[2023-07-22 12:08] LABS: Estimated Average Glucose 126 mg/dL
[2023-07-22 12:48] LABS: Alanine Aminotransferase 15 U/L (0-40); Albumin Level 3.9 g/dL (3.5-5.0); Alkaline Phosphatase 102 U/L (39-117); Anion Gap 10 (12-20); Aspartate Amino Transferase 12 U/L (5-37); Bilirubin Total 0.3 mg/dL (0.0-1.0); Blood Urea Nitrogen 19 mg/dL (9-16); Calcium 8.9 mg/dL (8.4-10.2); Carbon Dioxide 28 mmol/L (22-29); Chloride 107 mmol/L (96-108); Cholesterol 164 mg/dL (<200); Estimated Glomerular Filt Rate > 60; Glucose Fasting 151 mg/dL (60-99); HDL Cholesterol 33 mg/dL (>40); Iron 11 mcg/dL (45-160); LDL Cholesterol Calculated 106 mg/dL (<100); Percent Iron Saturation 3 % (15-50); Potassium 4.1 mmol/L (3.3-5.1); Sodium 141 mmol/L (135-145); Total Iron Binding Capacity 403 mcg/dL (228-428); Total Protein 7.2 g/dL (6.5-8.0); Triglycerides 127 mg/dL (<150); Unsaturated Iron Binding 392 ug/dL
[2023-07-22 12:54] LABS: Vitamin D 25-OH Total 34.1 ng/mL (>30)
[2023-07-22 13:04] LABS: PSA,Total (Free>4and<10) 0.75 ng/mL (0.00-4.00)
[2023-07-22 13:19] LABS: Folate 12.6 ng/mL (> or = 4.0); Vitamin B12 526 pg/mL (200-900)
[2023-07-22 13:37] LABS: Hemoglobin 6.6 g/dl (14.0-18.0)
[2023-07-22 16:15] LABS: Creatinine Urine 221.75 mg/dL; Microalbum/Creatinine Ratio Ur 7.2 ug/mg cr (<30)
== END 2023-07-22 09:48 | disposition home or self-care (01) ==
LOC: HO.HMGCLDS 09:47
PROVIDERS: PCP Internal Medicine; Visit Provider Internal Medicine
DX: Z12.5 Encounter for screening for malignant neoplasm of prostate (principal); I10 Essential (primary) hypertension; D64.9 Anemia, unspecified; E11.9 Type 2 diabetes mellitus without complications; E78.5 Hyperlipidemia, unspecified; R00.2 Palpitations
CPT/HCPCS: 36415; 80053; 80061; 82043; 82306; 82570; 82607; 82746; 83036; 83540; 84153; 85025

== ENCOUNTER 2023-07-22 18:16 | Inpatient (IN) | payer OTHER, SELFPAY ==
--- NOTE | ~2023-07-22 | XR_ITS ---
EXAMINATION: XR CHEST CLINICAL INFORMATION: Fever, cough COMPARISON: 09/25/2020 TECHNIQUE: Frontal view of the chest was obtained. FINDINGS: Lung volumes are symmetric. No focal consolidation is seen. No evidence of pneumothorax, pleural effusion, or pulmonary edema. The cardiomediastinal contour is unremarkable. Suspected hiatal hernia again noted. No acute osseous findings are seen. XR/XR chest 1V IMPRESSION: No acute cardiopulmonary findings.
[2023-07-22 18:37] VITALS: BP 140/71; PULSE 82; RESP 18; TEMP 37; O2SAT 97; BMI 36.1
--- NOTE | 2023-07-22 18:39 | ED.GENADULT ---
HPI - General Adult General Chief complaint: Recheck/Abnormal Lab/Rx Stated complaint: Here for infusion Time Seen by Provider: 07/22/23 18:49 Source: patient, family and old records reviewed Mode of arrival: ambulatory Limitations: no limitations History of Present Illness HPI narrative: 63 yo male with PMH of SVT, HTN, DM, HLD, anemia - Fe not on Fe states he cannot remember the last time he took it. Denies hx of blood transfusion or GIB. His usual hemoglobin is anywhere from 12-14 went to PCP for routine appointment and was found to have hemoglobin 6.6 - he then admits to family he has been very fatigued and having BRADSHAW and winded easily. He denies chest pain, black or bloody stools. He is not on thinners. Sent by PCP for blood transfusion. MD complaint: anemia Onset (ago): week(s) (2) Severity: moderate Relieving factors: none Exacerbating factors: other (exertion) Associated symptoms: malaise and shortness of breath Treatments prior to arrival: none Related Data Home Medications Medication Instructions Recorded Confirmed blood sugar diagnostic #10 ea 07/08/20 03/07/22 ferrous sulfate 325 mg (65 mg 325 mg PO BID 07/08/20 03/07/22 iron) tablet lancets 28 gauge #100 ea 07/08/20 03/07/22 metformin 500 mg tablet,extended 500 mg PO BEDTIME 07/08/20 03/07/22 release 24 hr Previous Rx's Medication Instructions Recorded vitamin B12 1,000 mcg-folic acid 1 radha sublingual .QD #30 ea 08/19/20 400 mcg sublingual lozenge trazodone 50 mg tablet 50 mg PO BEDTIME PRN insomnia #90 07/21/21 tabs cholecalciferol (vitamin D3) 50 50 mcg PO DAILY #30 caps 12/19/21 mcg (2,000 unit) capsule blood-glucose meter (FreeStyle #1 ea 03/07/22 Catarina kit) colchicine 0.6 mg tablet 0.6 mg PO DAILY #90 tabs 01/04/23 metoprolol succinate 50 mg 50 mg PO DAILY #90 tabs 03/28/23 tablet,extended release 24 hr omeprazole 40 mg capsule,delayed 40 mg PO DAILY #90 caps 03/28/23 release blood sugar diagnostic (FreeStyle #100 ea 07/14/23 Lite Strips) furosemide 20 mg tablet 20 mg PO DAILY #90 tabs 07/14/23 lisinopril 10 mg tablet 10 mg PO DAILY #90 tabs 07/14/23 zolpidem 10 mg tablet 10 mg PO BEDTIME #30 tabs 07/19/23 Allergies Allergy/AdvReac Type Severity Reaction Status Date / Time olmesartan AdvReac Intermediate Constipatio Verified 07/22/23 18:37 n Review of Systems Review of Systems: Constitutional : No Fever, No Chills, pos Fatigue ENT/Mouth : No sore throat, No Rhinorrhea Eyes: No Eye Pain, No Swelling, No Redness Cardiovascular : No Chest Pain, pos SOB, pos Dyspnea on Exertion Respiratory : No Cough, No Sputum Gastrointestinal : No Nausea, No Vomiting, No Diarrhea, No abdominal Pain Genitourinary : No Dysuria, No Urinary Frequency, No Hematuria, Musculoskeletal : No joint pain, No Myalgias, No Joint Swelling Skin : No Skin Lesions, No rash Neuro : No Weakness, No Numbness, No Dizziness, no Headache Psych : No Anxiety/Panic, No Depression Heme/Lymph: No Bruising, No Bleeding,No Lymphadenopathy Endocrine : No Polyuria, No Polydipsia All other systems reviewed and are negative PMFSH Past Medical History Attestation statement: The following information was validated with the patient. Source: old records reviewed Medical History Annual physical exam DJD (degenerative joint disease), lumbar Insomnia Obesity BRADSHAW (dyspnea on exertion) Normal colonoscopy Palpitations Diabetes Hyperlipidemia STEPH (obstructive sleep apnea) Anemia GERD (gastroesophageal reflux disease) SVT (supraventricular tachycardia) Surgical History H/O endoscopy H/O colonoscopy Lipoma of back Family History Family History Father Throat cancer Mother No problems noted. Maternal Grandmother No problems noted. Maternal Grandfather No problems noted. Paternal Grandmother No problems noted. Paternal Grandfather No problems noted. Brother History of open heart surgery Social History Social History Housing: House Alcohol intake: unknown Patient Tobacco Use Status: Never used Tobacco e-Cigarette/Vaping Use: Never Used Advance Directives: No Advance Directives Information Provided: No Current occupational status: employed Cognitive needs: No Hearing needs: No Vision needs: Yes Physical Exam ED Vital Signs: Vital Signs - 24 hr 07/22/23 18:37 Temperature 98.6 F Pulse Rate 82 Respiratory Rate 18 Blood Pressure 140/71 H Pulse Oximetry 97 Oxygen Delivery Method Room Air BMI result Body Mass Index 36.1 Appearance: Alert. Oriented X3. No acute distress. Eyes: Pupils equal, round and reactive to light. Pale conjunctiva ENT: Pharynx normal. Neck: Normal inspection. Neck supple. CVS: Normal heart rate and rhythm. Pulses normal. Respiratory: No respiratory distress. Breath sounds normal. Abdomen: Soft and nontender. Rectal: light brown Skin: Skin warm and dry. Normal skin color. Normal skin turgor. Extremities: No lower extremity edema. No calf ttp Neuro: Oriented X 3. No motor deficit. No sensory deficit. Course Course Course Narrative: RME performed by Chika Chiang PA-C. Patient is a 63 year old assigned male at presenting to the emergency department with anemia presenting with the need to get transfused. Detailed physical exam and review of systems are deferred to the professor of psychiatry. Labs done earlier today. Charge nurse aware of patient. Medical Decision Making Medical Decision Making [facility] Narrative: 63 yo male with PMH of SVT, HTN, DM, HLD, anemia here with 2 weeks of fatigue, BRADSHAW and winded easily he was found to have a hemoglobin of 6 and low Fe by PCP labs today sent to ED for transfusion and further workup - folate and B12 normal. He is not on Fe pills due to Rx not sent to pharmacy he is symptomatic. He denies GIB will obtain EKG, send off guiac stool, transfusion started and admit for further management. Differential Diagnosis Differential Diagnoses: The differential diagnosis associated with the presentation includes fe deficiency anemia, GIB Admission/Observation Consideration of admission/observation: Escalation of care including admission/observation considered admit given 5 point drop in hemoglobin Consult Healthcare Provider Management of the patient was discussed with: Hospitalist (will admit) Lab Data [facility] Lab Attestation statement: I reviewed the patient's lab results. Labs: Lab Results 07/22/23 Range/Units 19:30 Troponin I High Sens < 2.7 (<3.5-35.0) ng/L Stool Occult Blood NEGATIVE (NEGATIVE) Crossmatch See Detail Independent Interpretation I performed an independent interpretation of an: EKG Interpretation: Rate: 83 Rhythm: NSR Pelham: normal Normal P waves. Normal SITA. Normal QRS complex. ST T wave : normal no ISSA qTC: 415 prior studies: no acute ischemia The study has been interpreted contemporaneously by me. . Independent Historian Clinical information obtained from an independent historian. History obtained from or confirmed by: Other (daughter) External Record Review External record reviewed: Office record, Outpatient record and Prior outpatient labs Critical Care Time Critical Care Time Critical Care Time: Yes Total Critical Care Time: 45 Attestation: 2 units PRBC, admission, review of records I attest to this time spent taking care of the patient Discharge Plan Discharge Clinical Impression: Symptomatic anemia Patient Disposition: Admitted As Inpatient Prescriptions: No Action trazodone 50 mg tablet 50 mg PO BEDTIME PRN (Reason: insomnia) Qty: 90 4RF cholecalciferol (vitamin D3) 50 mcg (2,000 unit) capsule 50 mcg PO DAILY Qty: 30 8RF colchicine 0.6 mg tablet 0.6 mg PO DAILY Qty: 90 1RF Rx Instructions: Schedule next PCP appt for future refills metoprolol succinate 50 mg tablet extended release 24 hr 50 mg PO DAILY Qty: 90 0RF omeprazole 40 mg capsule,delayed release(DR/EC) 40 mg PO DAILY Qty: 90 0RF lisinopril 10 mg tablet 10 mg PO DAILY Qty: 90 3RF (DME) FreeStyle Lite Strips Strip See Rx Instructions .Route Qty: 100 1RF Rx Instructions: 1 qd furosemide 20 mg tablet 20 mg PO DAILY Qty: 90 0RF zolpidem 10 mg tablet 10 mg PO BEDTIME Qty: 30 0RF ferrous sulfate 325 mg (65 mg iron) tablet 325 mg PO BID metformin 500 mg tablet extended release 24 hr 500 mg PO BEDTIME (DME) FreeStyle Lite Strips Strip See Rx Instructions Not Applicable BID Qty: 10 Rx Instructions: As directed (DME) lancets 28 gauge misc See Rx Instructions topical BID Qty: 100 Rx Instructions: As directed vitamin Z44-gdlvs acid 1,000-400 mcg lozenge 1 radha sublingual .QD Qty: 30 6RF (DME) blood-glucose meter [FreeStyle Catarina] Kit See Rx Instructions .Route Qty: 1 0RF Rx Instructions: As directed
--- NOTE | 2023-07-22 18:54 | ECG_ITS ---
Test Reason : SOB Blood Pressure : / mmHG Vent. Rate : 083 BPM Atrial Rate : 083 BPM P-R Int : 172 ms QRS Dur : 092 ms QT Int : 354 ms P-R-T Axes : 034 014 044 degrees QTc Int : 415 ms Normal sinus rhythm Normal ECG When compared with ECG of 25-SEP-2020 11:07, No significant change was found Referred By: Nano Og Electronically Signed By:Jasbir Galaviz
[2023-07-22 19:37] LABS: OBS Int Ctl Valid YES; OBS1 NEGATIVE (NEGATIVE)
[2023-07-22 19:57] LABS: Troponin-I High Sensitivity < 2.7 ng/L (<3.5-35.0)
[2023-07-22 20:38] VITALS: BP 115/59; PULSE 79; RESP 18; TEMP 36.7
--- NOTE | 2023-07-22 20:55 | PHA.MEDREC ---
Pharmacy Consult ? Medication Reconciliation Pharmacy has completed the medication reconciliation.confirmed medication with patient through family who interpeted. Patient states he ONLY took his Zolpidem yesterday and no medications today. Jigna Fletcher CPhT
[2023-07-22 20:56] VITALS: BP 142/62; PULSE 86; RESP 16; O2SAT 100
[2023-07-22 20:58] VITALS: BP 146/71; PULSE 78; RESP 18; TEMP 36.8
[2023-07-22] MEDS: Pantoprazole Sodium 40 MG/10 ML VIAL 80 MG IVPUSH (21:42)
--- NOTE | 2023-07-22 22:16 | P.HPHOSP_ITS ---
History of Present Illness Date of Service: 07/22/23 Attending physician on admission: Reynaldo Bailon Chief Complaint: Low hemoglobin, fatigue Cuong Sr is a very pleasant 63 years old man with past medical history significant for essential hypertension, anemia, GERD, obesity, STEPH (not using CPAP) and hyperlipidemia presents to the emergency department after he was found to have significant anemia on routine blood workup. Patient stated that over the last several weeks he has been feeling tired and fatigue. He noted been quite short of breath with exertion. Her family member who was at bedside commented that he looks quite pale. He denies any headache, palpitations, dizziness, chest pain or cough. He denies fevers chills. He denied any acute gastrointestinal or genitourinary symptoms. He does not take aspirin daily or any blood thinner. He said that his stools are black in occasions. He does take NSAIDs very occasionally as needed. He does have history of anemia and at some point of his life was taking iron pills. He denies history of blood transfusion or gastrointestinal bleeding. He also denies history of peptic ulcer disease. Patient mentioned that he has had EGDs and colonoscopy in the past, but is unsure about the results. In the ED, he was found to have anemia with hemoglobin of 6.6 with low MCV. Anemia workup is remarkable for low iron level with normal TIBC. Folate and vitamin B12 are normal. Troponin is negative. BUN is elevated and creatinine is normal. There are no significant electrolyte imbalances. ED tx: Two units of PRBCs ordered. Review of Systems Review of Systems: All 12 systems were reviewed and normal except as noted in HPI. [facility] Medical History Annual physical exam DJD (degenerative joint disease), lumbar Insomnia Obesity BRADSHAW (dyspnea on exertion) Normal colonoscopy Palpitations Diabetes Hyperlipidemia STEPH (obstructive sleep apnea) Anemia GERD (gastroesophageal reflux disease) SVT (supraventricular tachycardia) Family History Father Throat cancer Mother No problems noted. Maternal Grandmother No problems noted. Maternal Grandfather No problems noted. Paternal Grandmother No problems noted. Paternal Grandfather No problems noted. Brother History of open heart surgery Surgical History H/O endoscopy H/O colonoscopy Lipoma of back Social History Housing: House Alcohol intake: unknown Patient Tobacco Use Status: Never used Tobacco e-Cigarette/Vaping Use: Never Used Advance Directives: No Advance Directives Information Provided: No Nutrition Risks: No Nutritional Risk Current occupational status: employed Cognitive needs: No Hearing needs: No Vision needs: Yes Meds Allergies Allergy/AdvReac Type Severity Reaction Status Date / Time olmesartan AdvReac Intermediate Constipatio Verified 07/22/23 18:37 n Active Medications: Current Medications Sodium Chloride (Ns) 1,000 mls @ 100 mls/hr IVCONT .Q10H SANDY Pantoprazole Sodium (Pantoprazole Sodium 40 Mg/10 Ml Vial) 40 mg IVPUSH Q12H SANDY Sodium Chloride (0.9 % Sodium Chloride Flush 3 Ml Syringe) 3 ml IVFLUSH QSHIFT SANDY Home Medications Medication Instructions Recorded Confirmed Last Taken Type blood sugar diagnostic #10 ea 07/08/20 03/07/22 Unknown History ferrous sulfate 325 mg (65 mg 325 mg PO BID 07/08/20 07/22/23 Unknown History iron) tablet lancets 28 gauge #100 ea 07/08/20 03/07/22 Unknown History Physical Exam Vital Signs and Narrative: Vital Signs: Last Vital Signs Temp 98.3 F 07/22/23 20:58 Pulse 78 07/22/23 20:58 Resp 18 07/22/23 20:58 BP 146/71 H 07/22/23 20:58 Pulse Ox 100 07/22/23 20:56 O2 Del Method Room Air 07/22/23 20:56 BMI result Body Mass Index 36.1 Constitutional - Awake and Alert, No apparent distress. Cooperative. HEENT - atraumatic. Normocephalic. Pale conjunctivae. Cardiovascular -regular rate and rhythm. Normal rate. Respiratory - Normal lung expansion, Normal respiratory effort, No respiratory distress, CTA bilaterally Gastrointestinal - NT / ND; +BS; No rebound or guarding Extremities - no calf tenderness bilaterally, no swelling Musculoskeletal - Normal inspection, normal ROM Skin - pale. Neurological - Alert & oriented x3. Psychological - Appropriate affect Results Labs Labs: Laboratory Results - last 24 hr 07/22/23 19:30 Stool Occult Blood NEGATIVE Blood Type O Positive Antibody Screen NEGATIVE Crossmatch See Detail Assessment and Plan (1) Symptomatic anemia: Status: Acute (2) HTN (hypertension): Status: Acute Plan Cuong Sr is a very pleasant 63 years old man admitted with: * Symptomatic anemia, concern for underlying gastrointestinal bleeding. Admit to hospitalist service. Telemetry. Keep NPO. Protonix 80 mg p.o. bolus then 40 mg IV twice daily. Continue to monitor hemoglobin. PRBC transfusion as needed to keep hemoglobin above 7. Gastroenterology consult for possible EGD. * Essential hypertension. Continue metoprolol and lisinopril once diet is started. * GERD. Patient has been taking omeprazole at home. Patient was started on Protonix IV. * Obstructive sleep apnea. Not using his CPAP. * Hyperlipidemia. Patient not taking medication for this. * History of prediabetes . Not taking medications for this. Check hemoglobin A1c. DVT prophylaxis: SCDs only (pharmacological DVT prophylaxis is contraindicated due to concern for active GI bleeding). Code status: Full. Patient will need hospitalization for at least 2 midnights for symptomatic anemia evaluation and treatment with PRBC transfusions, close monitoring and gastroenterology evaluation for possible endoscopies. Quality Stroke Does the patient have a stroke diagnosis?: No VTE Prior VTE?: No VTE Risk Level:: Medical - moderate - high VTE Device Contraindication: N/A - Device Ordered VTE Drug Contraindication: Treatment Not Indicated
[2023-07-22 23:31] VITALS: BP 120/53; PULSE 79; RESP 17; TEMP 36.9
[2023-07-22 23:49] VITALS: BP 127/67; RESP 17; TEMP 36.9
[2023-07-23] VITALS (16 sets, daily range): BP systolic 104–149; BP diastolic 63–90; PULSE 74–104; RESP 14–22; TEMP 36.7–37.1; O2SAT 95–98
[2023-07-23] MEDS: Zolpidem Tartrate 5 MG TABLET PO ×2 (00:39→21:39)
[2023-07-23] MEDS: 0.9 % Sodium Chloride 1,000 ML 100 ML IVCONT ×2 (05:05→15:47)
[2023-07-23 05:44] LABS: Hematocrit 26.3 % (42.0-52.0); Hemoglobin 7.3 g/dl (14.0-18.0); Mean Corpuscular HGB Conc 27.8 g/dl (31.0-36.0); Mean Corpuscular Hemoglobin 19.8 pg (27.0-33.0); Mean Corpuscular Volume 71.5 fL (80.0-98.0); Mean Platelet Volume 8.9 fL (9.4-12.4); NRBC Pct Auto 0.2 /100WBC (0.0-0.2); Platelet Count 446 X10*3/uL (160-400); Red Blood Count 3.68 X10*6/uL (4.60-5.80); Red Cell Distribution Width 18.6 % (11.0-16.0); White Blood Count 11.1 X10*3/uL (4.8-10.8)
[2023-07-23 06:08] LABS: Alanine Aminotransferase 15 U/L (0-40); Albumin Level 3.6 g/dL (3.5-5.0); Alkaline Phosphatase 91 U/L (39-117); Anion Gap 12 (12-20); Aspartate Amino Transferase 12 U/L (5-37); Bilirubin Total 0.6 mg/dL (0.0-1.0); Blood Urea Nitrogen 16 mg/dL (9-16); Calcium 8.6 mg/dL (8.4-10.2); Carbon Dioxide 25 mmol/L (22-29); Chloride 106 mmol/L (96-108); Creatinine Clr Calc Pharmacy 110.7; Estimated Glomerular Filt Rate > 60; Glucose Random 125 mg/dL (60-115); Sodium 139 mmol/L (135-145); Total Protein 6.6 g/dL (6.5-8.0)
[2023-07-23 06:23] LABS: Thyroid Stimulating Hormone 2.21 uIU/mL (0.32-4.0)
[2023-07-23 07:13] LABS: Estimated Average Glucose 117 mg/dL; Hemoglobin A1c % 5.7 % (<6.0)
--- NOTE | 2023-07-23 08:13 | PC.NURSE ---
assumed care of pt at 0700. pt a&o x4, pleasant, calm, and cooperative. mainly filipino speaking. when t/w greeted pt, pt had already eaten meal tray from previously ordered diabetic diet in chart, NPO was never ordered from previous shift. t/w received report from previous shift RN that the pt was NPO for possible endoscopy. tech stated they were unaware. blood bank just notified that pt's blood is ready. receiving RN, Bill notified. pt ambulated to the bathroom with steady gait. call cox within reach. admission report complete, awaiting transport to room.
[2023-07-23] MEDS: Pantoprazole Sodium 40 MG/10 ML VIAL IVPUSH ×2 (09:49→21:40)
[2023-07-23 11:19] LABS: Ferritin 9 ng/mL (20-250)
--- NOTE | 2023-07-23 12:53 | MHC.CM.PN ---
EMR REVIEWED, PT ADMITTED W/SYMPTOMATIC ANEMIA, CM MET W/PT VIA FILBERT GROWER, PT REPORTS HE LIVES ALONE, WORKS/DRIVES AND IS FULLY INDEP, NO DME/SERVICES, GOAL IS HOME SELF CARE AND PT WOULD LIKE TO SELF TRANSPORT HE DROVE HIMSELF TO ED. PT VERIFIES PCP IS LINUS DRUMMOND, COVID VACC X 3 AND PT EDUCATED ON AND COMPLETED A HCP NAMING HIS DTR HILARIO [phone] HIS [facility] AND HIS SON JOHN RIGGS JR [phone] HIS ALTERNATE, COPY UPLOADED TO [facility] AND PLACED IN CHART.
--- NOTE | 2023-07-23 14:13 | HO.PM.IMPN ---
Subjective Subjective Date of Service: 07/23/23 Interval History: No acute issues overnight. No active bleeding. Given 1 unit of packed red cells only with minimal response Review of Systems Denies chest pain Denies shortness of breath Denies nausea vomiting diarrhea Denies fever chills Physical Exam Vital Signs: Vital Signs: Last Vital Signs Temp 98.7 F 07/23/23 13:24 Pulse 83 07/23/23 13:24 Resp 14 07/23/23 13:24 BP 133/74 07/23/23 13:24 Pulse Ox 97 07/23/23 11:10 O2 Del Method Room Air 07/23/23 11:10 BMI result Body Mass Index 36.1 Const: Other: Awake alert no acute distress Resp: Other: Clear to auscultation bilaterally no rales rhonchi or wheezes Cardio: Other: No S4; positive S1-S2; no S3 murmurs rubs or gallops GI: Other: Soft nontender nondistended normoactive bowel sounds Extrem: Other: No edema bilaterally Objective Data Active Medications Bisacodyl (Bisacodyl 5 Mg Tablet.) 10 mg PO ONCE ONE Stop: 07/24/23 13:01 Sodium Chloride (Ns) 1,000 mls @ 100 mls/hr IVCONT .Q10H [facility] Last Admin: 07/23/23 05:05 Dose: 100 mls/hr Documented By: NIRMAL Pantoprazole Sodium (Pantoprazole Sodium 40 Mg/10 Ml Vial) 40 mg IVPUSH Q12H [facility] Last Admin: 07/23/23 09:49 Dose: 40 mg Documented By: MONICA Sodium Chloride (0.9 % Sodium Chloride Flush 3 Ml Syringe) 3 ml IVFLUSH QSHIFT [facility] Last Admin: 07/23/23 07:43 Dose: Not Given Documented By: SIDDHARTH Non-Admin Reason: Med Not Available Zolpidem Tartrate (Zolpidem Tartrate 5 Mg Tablet) 5 mg PO BEDTIME PRN PRN Reason: Insomnia Last Admin: 07/23/23 00:39 Dose: 5 mg Documented By: NIRMAL Labs 07/23/23 05:13 07/23/23 05:13 Labs: Laboratory Results - last 24 hr 07/22/23 07/23/23 19:30 05:13 MCV 71.5 L MCH 19.8 L MCHC 27.8 L RDW 18.6 H Plt Count 446 H MPV 8.9 L Absolute Nucleated RBC 0.020 H Nucleated RBC % (auto) 0.2 Anion Gap 12 Estim Creat Clear Calc 110.7 Estimated GFR > 60 Random Glucose 125 H Estimat Average Glucose 117 Hemoglobin A1c % 5.7 Calcium 8.6 Ferritin 9 L Total Bilirubin 0.6 AST 12 ALT 15 Alkaline Phosphatase 91 Total Protein 6.6 Albumin 3.6 TSH 2.21 Stool Occult Blood NEGATIVE Blood Type O Positive Antibody Screen NEGATIVE Crossmatch See Detail Assessment and Plan (1) Symptomatic anemia: Status: Acute (2) HTN (hypertension): Status: Acute Plan 63-year-old man with past medical history significant for essential hypertension history of anemia GERD obesity and hyperlipidemia who presents to the emergency room having significant edema on routine workup. His only complaint was worsening fatigue. He has had no active bleeding since admit 1. Symptomatic anemia -stable hemoglobin overnight with no evidence of active bleeding -transfuse 2 units of packed red cells -pantoprazole IV q.12 hours -appreciate GI input; clear liquids today with GoLYTELY prep in anticipation of EGD in a.m. -follow daily CBCs 2. Hypertension -acceptable control on current therapies -adjust as indicated SCDs Full. Requires ongoing hospitalization for blood transfusion and specialty consultation to evaluate anemia Quality Stroke Does the patient have a stroke diagnosis?: No VTE Prior VTE?: No VTE Risk Level:: Medical - moderate - high VTE Device Contraindication: N/A - Device Ordered VTE Drug Contraindication: Treatment Not Indicated
--- NOTE | 2023-07-23 15:03 | PM.GICN ---
History of Present Illness Data of Consult Service Date: 07/23/23 Requesting physician: Reynaldo Bailon Primary Care Provider: Unknown Physician HPI Reason for consult: Iron deficiency anemia 63 YM with hypertension, anemia, GERD, obesity, STEPH (not using CPAP) and hyperlipidemia seen [place] [facility] [place] 07[place]23 after his routine lab workup revealed microcytic hypochromic anemia. Hx obtained with the help of an [facility] [place] supervisor modern languages. Patient complained of feeling fatigued with SOB on exertion over the past several weeks. He denies abdominal pain, heartburn, dysphagia, headaches, palpitations, dizziness, chest pain, cough, fever or chills. He notes that he vomits after taking onions or garlic. Pt admits to having intermittent black stools since May, 2023 and none over the past 2-3 weeks. Pt admits to intermittent constipation and takes some medication (does not recall the name) prn. He admits to taking NSAIDs very occasionally as needed and denies taking aspirin or any blood thinner. Pt gives a hx of anemia several years ago, was offered blood transfusion and declined and at some point in his life was taking iron pills. Patient admits to having a two EGDs and a colon[place] in the past [place] [facility] [place] more recently (05/2020[place] in [place] (Not [place]). (he thinks he may have had a hernia or an ulcer) Pt has sleep apnea and was on a CPAP machine and lost it during a move. Pt admits to drinking beer on weekends and denies smoking. Family hx: dad with throat cancer (he was a smoker) and a sister had colon polyps removed and is positive for BRCA gene In the ED, labs showed anemia with H & H of 6.6 and 25.4 with microcytosis, hypochromia and elevated RDW, iron studies cw with KEITH. Folate and vitamin B12 are normal. Troponin is negative. ED tx: Two units of PRBCs ordered and patient was admitted for further management. Review of Systems Review of Systems: Yes all other systems are reviewed and are negative [facility] Past Medical History Medical History (Updated 08/02/23 @ 09:17 by Katja Olvera MD) HTN (hypertension) Annual physical exam DJD (degenerative joint disease), lumbar Insomnia Obesity BRADSHAW (dyspnea on exertion) Normal colonoscopy Palpitations Diabetes Hyperlipidemia STEPH (obstructive sleep apnea) Anemia GERD (gastroesophageal reflux disease) SVT (supraventricular tachycardia) Family History Family History Father Throat cancer Mother No problems noted. Maternal Grandmother No problems noted. Maternal Grandfather No problems noted. Paternal Grandmother No problems noted. Paternal Grandfather No problems noted. Brother History of open heart surgery Surgical History Surgical History H/O endoscopy H/O colonoscopy Lipoma of back Social History Social History Household Members: None Housing: Apartment Do you presently have visiting nurse or other home services: No Alcohol intake: unknown Comment: pt refuses bed alarm, high falls interventions except socks and signage. Patient Tobacco Use Status: Never used Tobacco e-Cigarette/Vaping Use: Never Used Second Hand Smoke Exposure: No service: No Current occupational status: employed Cognitive needs: No Hearing needs: No Vision needs: Yes Meds Allergies Allergy/AdvReac Type Severity Reaction Status Date / Time olmesartan AdvReac Intermediate Constipatio Verified 08/02/23 08:13 n Active Medications: Current Medications Bisacodyl (Bisacodyl 5 Mg Tablet.Dr) 10 mg PO ONCE ONE Stop: 07/24/23 13:01 Furosemide (Furosemide 20 Mg Tablet) 20 mg PO DAILY [facility]; Protocol Sodium Chloride (Ns) 1,000 mls @ 100 mls/hr IVCONT .Q10H [facility] Last Admin: 07/23/23 05:05 Dose: 100 mls/hr Lisinopril (Lisinopril 10 Mg Tablet) 10 mg PO DAILY [facility]; Protocol Metoprolol Succinate (Metoprolol Succinate Er 50 Mg Tab.Er.24h) 50 mg PO DAILY [facility]; Protocol Pantoprazole Sodium (Pantoprazole Sodium 40 Mg/10 Ml Vial) 40 mg IVPUSH Q12H [facility] Last Admin: 07/23/23 09:49 Dose: 40 mg Sodium Chloride (0.9 % Sodium Chloride Flush 3 Ml Syringe) 3 ml IVFLUSH QSHIFT [facility] Last Admin: 07/23/23 07:43 Dose: Not Given Zolpidem Tartrate (Zolpidem Tartrate 5 Mg Tablet) 5 mg PO BEDTIME PRN PRN Reason: Insomnia Last Admin: 07/23/23 00:39 Dose: 5 mg Zolpidem Tartrate (Zolpidem Tartrate 5 Mg Tablet) 5 mg PO BEDTIME [facility] Home Medications Medication Instructions Recorded Confirmed Last Taken Type blood sugar diagnostic #10 ea 07/08/20 08/02/23 Unknown History lancets 28 gauge #100 ea 07/08/20 08/02/23 Unknown History Physical Exam Vital Signs: Vital Signs: Last Vital Signs Temp 98.7 F 07/23/23 13:24 Pulse 83 07/23/23 13:24 Resp 14 07/23/23 13:24 BP 133/74 07/23/23 13:24 Pulse Ox 97 07/23/23 11:10 O2 Del Method Room Air 07/23/23 11:10 BMI result Body Mass Index 36.1 Const: Other: Awake alert no acute distress Nutritional Appearance: obese Limitations: language barrier Resp: Other: Clear to auscultation bilaterally no rales rhonchi or wheezes Cardio: Other: No S4; positive S1-S2; no S3 murmurs rubs or gallops GI: Other: Soft nontender nondistended normoactive bowel sounds Extrem: Other: No edema bilaterally Results Labs 07/26/23 06:52 07/26/23 06:52 Labs: Short CBC 07/23/23 Range/Units 05:13 WBC 11.1 H (4.8-10.8) X10*3/uL Hgb 7.3 L (14.0-18.0) g/dl Hct 26.3 L (42.0-52.0) % Plt Count 446 H (160-400) X10*3/uL BMP 07/23/23 05:13 Sodium 139 Potassium 4.0 Chloride 106 Carbon Dioxide 25 BUN 16 Creatinine 0.94 Calcium 8.6 Liver Function 07/23/23 Range/Units 05:13 Total Bilirubin 0.6 (0.0-1.0) mg/dL AST 12 (5-37) U/L ALT 15 (0-40) U/L Alkaline Phosphatase 91 (39-117) U/L Albumin 3.6 (3.5-5.0) g/dL Assessment and Plan (1) Symptomatic anemia: Status: Resolved Plan 63 YM with hypertension, anemia, GERD, obesity, STEPH (not using CPAP) and hyperlipidemia admitted [place] [facility] [place] 07/22/23 with microcytic hypochromic anemia. He denies abdominal pain and admits to having intermittent balck stools since May, 2023 and none over the past 2-3 weeks. In the ED, labs showed anemia with H & H of 6.6 and 25.4 with microcytosis, hypochromia and elevated RDW, iron studies cw with KEITH. Folate and vitamin B12 are normal. Troponin is negative. Stool occult blood was negative Anemia can be due to intermittent GI blood loss from upper GI tract (PUD, erosive esophagitis, upper GI AVMs or Dieulafoy) versus LGI source (colon polyps, mass or AVMs) RECOMMENDATIONS: 1. Monitor CBC daily after transfusion of 2 U PRBC. 2. Agree with with IV PPI 3. Clear liquid diet today with Golytely prep. Pt scheduled for an EGD and colonoscopy on 07/24/23 at 2 pm - procedures were cancelled due to fever. EGD and colonoscopy procedures and potential complications including bleeding, perforation, reaction to anesthetics and aspiration were reviewed with the patient with the help of an [facility] [place] supervisor modern languages. Hospital course: Symptomatic anemia: Pt received two units of blood with improvement in H/H. 07/24/23 Pt had fever of 101.5 initially thought to be realted to transfusion reaction and Transfusion protocol drawn. A post-transfusion workup did not reveal any abnormalities with analysis of the blood product and patient sample. SAMIRA was negative and no features of hemolysis were seen. Pt was scheduled for an EGD and colon - procedures were cancelled due to fever related to influenza A and rescheduled as outpatient on 09/10/23 Influenza A - likely cause of fever cxr negative for pneumonia and pt was treated with tamiflu with resolution of fever prior to discharge. Procedures Date of Service Date of Service: 09/09/23
[2023-07-23] MEDS: 0.9 % Sodium Chloride Flush 3 ML SYRINGE IVFLUSH ×2 (17:45→21:39)
[2023-07-23] MEDS: PEG 3350/Na Sulf,Bicarb,Cl/KCL 4,000 ML SOLN.RECON 4000 ML PO (17:45)
[2023-07-24] VITALS (10 sets, daily range): BP systolic 90–159; BP diastolic 52–78; PULSE 82–98; RESP 18–20; TEMP 36.4–38.6; O2SAT 93–98
[2023-07-24] MEDS: 0.9 % Sodium Chloride 1,000 ML 100 ML IVCONT (03:15)
[2023-07-24] MEDS: HYDROmorphone HCl 0.5 MG/0.5 ML SYRINGE IVPUSH (06:36)
[2023-07-24] MEDS: 0.9 % Sodium Chloride Flush 3 ML SYRINGE IVFLUSH ×3 (08:40→20:10)
[2023-07-24] MEDS: lisinopriL 10 MG TABLET PO (08:42)
[2023-07-24] MEDS: Pantoprazole Sodium 40 MG/10 ML VIAL IVPUSH ×2 (08:42→20:10)
[2023-07-24] MEDS: Metoprolol Succinate ER 50 MG TAB.ER.24H PO (08:42)
[2023-07-24] MEDS: Furosemide 20 MG TABLET PO (08:42)
[2023-07-24 08:49] LABS: MANUAL DIFF FLAG NO
[2023-07-24 08:53] LABS: Basophils Percent Auto 0.3 % (0-2); Eosinophils Absolute Auto 0.2 X10*3/uL (0.0-0.4); Eosinophils Percent Auto 1.2 % (0-4); Hematocrit 30.9 % (42.0-52.0); Hemoglobin 9.1 g/dl (14.0-18.0); Imm Gran Abs Auto 0.07 X10*3/uL (0.00-0.03); Imm Gran Pct Auto 0.5 % (0.0-0.4); Lymphocytes Absolute Auto 0.9 X10*3/uL (1.2-4.9); Lymphocytes Percent Auto 6.9 % (20-40); Mean Corpuscular HGB Conc 29.4 g/dl (31.0-36.0); Mean Corpuscular Hemoglobin 21.9 pg (27.0-33.0); Mean Corpuscular Volume 74.5 fL (80.0-98.0); Mean Platelet Volume 9.4 fL (9.4-12.4); Monocytes Percent Auto 7.8 % (2-11); NRBC Pct Auto 0.2 /100WBC (0.0-0.2); Neutrophils Absolute Auto 10.8 x10*3/uL (2.0-8.3); Neutrophils Percent Auto 83.3 % (45-73); Platelet Count 453 X10*3/uL (160-400); Red Blood Count 4.15 X10*6/uL (4.60-5.80); Red Cell Distribution Width 19.4 % (11.0-16.0)
--- NOTE | 2023-07-24 10:53 | MHC.CM.PN ---
EMR REVIEWED, PER GI PT SCHEDULED FOR UPPER ENDOSCOPY TODAY AT 2PM, PER HOSPITALIST ANTIC PT WILL BE CLEARED FOR DC TOMORROW 07/25, PLAN CONT'S TO BE HOME SELF CARE W/SELF TRANSPORT, CM WILL CONT TO FOLLOW.
[2023-07-24] MEDS: Acetaminophen 325 MG TABLET 650 MG PO (13:09)
--- NOTE | 2023-07-24 14:20 | PC.NURSE ---
Patient on floor. During report, floor nurse Claudia Shaw reported that patient spiked a fever of 101.5. WBC elevated. Uknown etiology. U/A and Blood cultures ordered by hospitalist Dr. Aguirre. Covid test ordered by anesthesia Dr. Chilel. Anesthesia questioning a delayed transfusion reaction, last blood received around 24 hours ago. This nurse called and spoke with Collin in [facility]. Per Collin, transfusion reaction protocol should be initiated. Claudia Shaw notified of this and to make Dr. Aguirre aware. At this time, Covid swab still pending. Anesthesia Dr. Chilel, Dr. Torres, and surgeon Dr. Recinos made aware. Case to be put on hold at this time per Dr. Chilel and Dr. Torres. Claudia made aware.
[2023-07-24 14:25] LABS: COVID-19 Test Negative (Negative); IDNOW Serial# 152EDE1D
--- NOTE | 2023-07-24 15:34 | PM.EVENT ---
Event Note Date of Service: 07/24/23 Event Note: Pt scheduled for a EGD and colon today. Had a fever of 101.5. Procedure was cancelled due to concern for possible delayed transfusion reaction versus COVID. Procedure tentatively rescheduled for 07/26/2023 pending fever workup. Discussed with the patient and his daughter and he prefers to schedule his procedures as an outpatient if CBC remains stable. Pt can resume his previous diet today. Time Spent With Patient Time: Total time managing care of this patient today ____ minutes.
[2023-07-24 16:43] LABS: Appearance Urine Clear; Color Urine Dark Yellow; Glucose Urine UA Negative (Negative); Leukocyte Esterase Urine Negative (Negative); Nitrite Urine Negative (Negative); PH 8.5 (5.0-9.0); Urine Blood Negative (Negative); Urine Ketones Negative (Negative); Urine Protein Trace mg/dL (Neg-Trace)
--- NOTE | 2023-07-24 17:11 | HO.PM.IMPN ---
Subjective Subjective Date of Service: 07/24/23 Interval History: Colonoscopy canceled secondary to fever post transfusion. Transfusion reaction workup in process Review of Systems Denies chest pain Denies shortness of breath Denies nausea vomiting diarrhea Admits fever no chills Physical Exam Vital Signs: Vital Signs: Last Vital Signs Temp 99.2 F 07/24/23 15:34 Pulse 90 07/24/23 15:34 Resp 20 07/24/23 15:34 BP 112/70 07/24/23 15:34 Pulse Ox 95 07/24/23 15:34 O2 Del Method Room Air 07/24/23 15:34 BMI result Body Mass Index 36.1 Const: Other: Awake alert no acute distress Resp: Other: Clear to auscultation bilaterally no rales rhonchi or wheezes Cardio: Other: No S4; positive S1-S2; no S3 murmurs rubs or gallops GI: Other: Soft nontender nondistended normoactive bowel sounds Extrem: Other: No edema bilaterally Objective Data Active Medications Acetaminophen (Acetaminophen 325 Mg Tablet) 650 mg PO Q6H PRN PRN Reason: Fever Last Admin: 07/24/23 13:09 Dose: 650 mg Documented By: CASSIDY Furosemide (Furosemide 20 Mg Tablet) 20 mg PO DAILY [facility]; Protocol Last Admin: 07/24/23 08:42 Dose: 20 mg Documented By: CASSIDY Lisinopril (Lisinopril 10 Mg Tablet) 10 mg PO DAILY [facility]; Protocol Last Admin: 07/24/23 08:42 Dose: 10 mg Documented By: CASSIDY Metoprolol Succinate (Metoprolol Succinate Er 50 Mg Tab.Er.24h) 50 mg PO DAILY [facility]; Protocol Last Admin: 07/24/23 08:42 Dose: 50 mg Documented By: CASSIDY Pantoprazole Sodium (Pantoprazole Sodium 40 Mg/10 Ml Vial) 40 mg IVPUSH Q12H [facility] Last Admin: 07/24/23 08:42 Dose: 40 mg Documented By: CASSIDY Sodium Chloride (0.9 % Sodium Chloride Flush 3 Ml Syringe) 3 ml IVFLUSH QSHIFT [facility] Last Admin: 07/24/23 13:10 Dose: 3 ml Documented By: CASSIDY Zolpidem Tartrate (Zolpidem Tartrate 5 Mg Tablet) 5 mg PO BEDTIME PRN PRN Reason: Insomnia Last Admin: 07/23/23 00:39 Dose: 5 mg Documented By: NIRMAL Zolpidem Tartrate (Zolpidem Tartrate 5 Mg Tablet) 5 mg PO BEDTIME [facility] Last Admin: 07/23/23 21:39 Dose: 5 mg Documented By: OZ Labs 07/24/23 08:13 07/23/23 05:13 Labs: Laboratory Results - last 24 hr 07/24/23 07/24/23 07/24/23 08:13 13:50 15:31 MCV 74.5 L MCH 21.9 L MCHC 29.4 L RDW 19.4 H Plt Count 453 H MPV 9.4 Immature Gran % (Auto) 0.5 H Neut % (Auto) 83.3 H Lymph % (Auto) 6.9 L Jerome % (Auto) 7.8 Eos % (Auto) 1.2 Baso % (Auto) 0.3 Lymph # (Auto) 0.9 L Jerome # (Auto) 1.0 Eos # (Auto) 0.2 Baso # (Auto) 0.0 Abs Immat Gran (auto) 0.07 H Absolute Neuts (auto) 10.8 H Absolute Nucleated RBC 0.030 H Nucleated RBC % (auto) 0.2 Urine Color Urine Appearance Urine pH Ur Specific [place] Urine Protein Urine Glucose (UA) Urine Ketones Urine Blood Urine Nitrite Ur Leukocyte Esterase COVID-19 ([facility]) Negative COVID-19 Clin Com See Note Clerical Work Check No Error Found Hemolysis Bld Bag Check None in Pre and Post Icterus Blood Bag Check None in Pre and Post Pre-Trans Blood Type O POSITIVE Post-Trans Blood Type O Positive Post-Trans SAMIRA Poly NEGATIVE Post-Tx Rxn SAMIRA Result TNP 07/24/23 16:21 MCV MCH MCHC RDW Plt Count MPV Immature Gran % (Auto) Neut % (Auto) Lymph % (Auto) [place] % (Auto) Eos % (Auto) Baso % (Auto) Lymph # (Auto) [place] # (Auto) Eos # (Auto) Baso # (Auto) Abs Immat Gran (auto) Absolute Neuts (auto) Absolute Nucleated RBC Nucleated RBC % (auto) Urine Color Dark Yellow Urine Appearance Clear Urine pH 8.5 Ur Specific [place] 1.020 Urine Protein Trace Urine Glucose (UA) Negative Urine Ketones Negative Urine Blood Negative Urine Nitrite Negative Ur Leukocyte Esterase Negative COVID-19 ([facility]) COVID-19 Clin Com Clerical Work Check Hemolysis Bld Bag Check Icterus Blood Bag Check Pre-Trans Blood Type Post-Trans Blood Type Post-Trans SAMIRA Poly Post-Tx Rxn SAMIRA Result Assessment and Plan (1) Symptomatic anemia: Status: Acute (2) HTN (hypertension): Status: Acute Plan 63-year-old man with past medical history significant for essential hypertension history of anemia GERD obesity and hyperlipidemia who presents to the emergency room having significant edema on routine workup. His only complaint was worsening fatigue. He has had no active bleeding since admit 1. Symptomatic anemia -stable hemoglobin overnight with no evidence of active bleeding -fever today to 102. Transfusion protocol drawn -colonoscopy postponed until a.m.. NPO after midnight -pantoprazole IV q.12 hours -follow daily CBCs 2. Hypertension -acceptable control on current therapies -adjust as indicated SCDs Full. Requires ongoing hospitalization for blood transfusion and specialty consultation to evaluate anemia Quality Stroke Does the patient have a stroke diagnosis?: No VTE Prior VTE?: No VTE Risk Level:: Medical - moderate - high VTE Device Contraindication: N/A - Device Ordered VTE Drug Contraindication: Treatment Not Indicated
[2023-07-24 17:18] LABS: Urine Hemoglobin Negative
[2023-07-24] MEDS: Zolpidem Tartrate 5 MG TABLET PO (20:10)
[2023-07-25 03:26] VITALS: BP 105/60; PULSE 91; RESP 21; TEMP 37.8; O2SAT 94
[2023-07-25] MEDS: Acetaminophen 325 MG TABLET 650 MG PO ×2 (03:36→15:58)
[2023-07-25 04:36] VITALS: TEMP 37.4
[2023-07-25] MEDS: 0.9 % Sodium Chloride 500 ML IV (04:58)
[2023-07-25 05:08] LABS: MANUAL DIFF FLAG NO
[2023-07-25 05:09] LABS: Basophils Percent Auto 0.3 % (0-2); Eosinophils Absolute Auto 0.2 X10*3/uL (0.0-0.4); Eosinophils Percent Auto 1.5 % (0-4); Hematocrit 30.1 % (42.0-52.0); Hemoglobin 8.8 g/dl (14.0-18.0); Imm Gran Abs Auto 0.04 X10*3/uL (0.00-0.03); Imm Gran Pct Auto 0.4 % (0.0-0.4); Lymphocytes Absolute Auto 0.6 X10*3/uL (1.2-4.9); Lymphocytes Percent Auto 5.8 % (20-40); Mean Corpuscular HGB Conc 29.2 g/dl (31.0-36.0); Mean Corpuscular Hemoglobin 21.3 pg (27.0-33.0); Mean Corpuscular Volume 72.9 fL (80.0-98.0); Mean Platelet Volume 8.8 fL (9.4-12.4); Monocytes Percent Auto 10.4 % (2-11); NRBC Pct Auto 0.3 /100WBC (0.0-0.2); Neutrophils Absolute Auto 8.1 x10*3/uL (2.0-8.3); Neutrophils Percent Auto 81.6 % (45-73); Platelet Count 382 X10*3/uL (160-400); Red Blood Count 4.13 X10*6/uL (4.60-5.80); Red Cell Distribution Width 20.8 % (11.0-16.0); White Blood Count 9.9 X10*3/uL (4.8-10.8)
[2023-07-25 05:19] LABS: Lactic Acid 0.7 mmol/L (0.5-2.0)
[2023-07-25 05:30] LABS: Alanine Aminotransferase 34 U/L (0-40); Albumin Level 3.4 g/dL (3.5-5.0); Alkaline Phosphatase 106 U/L (39-117); Anion Gap 15 (12-20); Aspartate Amino Transferase 32 U/L (5-37); Blood Urea Nitrogen 21 mg/dL (9-16); Calcium 8.4 mg/dL (8.4-10.2); Carbon Dioxide 25 mmol/L (22-29); Chloride 103 mmol/L (96-108); Creatinine Clr Calc Pharmacy 49.5; Estimated Glomerular Filt Rate 32; Glucose Random 139 mg/dL (60-115); Potassium 3.5 mmol/L (3.3-5.1); Sodium 139 mmol/L (135-145); Total Protein 6.2 g/dL (6.5-8.0)
[2023-07-25 05:33] LABS: Influenza A PCR POSITIVE (Negative); Influenza B PCR NEGATIVE (Negative); Resp Syncy Virus RNA Qual PCR NEGATIVE (Negative); SARS COV2 PCR INHOUSE NEGATIVE (Negative)
[2023-07-25] MEDS: Oseltamivir Phosphate 75 MG CAPSULE PO (06:28)
[2023-07-25] MEDS: 0.9 % Sodium Chloride 1,000 ML 100 ML IVCONT ×2 (06:29→16:04)
--- NOTE | 2023-07-25 07:27 | PC.NURSE ---
Assumed care of patient at 19:15 in the evening (07/24). Pt A&Ox4. Primarily Venezuelan speaking, blister packing machine tender used at bedside. Per shift report pt was worked up for the question of a transfusion reaction versus infectious process during the day due to new fevers and leukocytosis, though reaction was found to be negative. U/A and covid were negative per review; BCx sent and in process. Tmax this shift was 100.0 po this morning 03:00 vitals. Pt c/o chills at this time and a new cough was noted. Pt has consistently denied sob, and breathing has been observed to be even and unlabored without distress. MD was notified of vitals and new assessment findings; prn tylenol given. New orders placed by provider for labs including lactic, bolus and maintenance IVFs, full respiratory panel, and CXR. Viral panel back with +Flu A results. MD notified, orders for droplet precautions, placed, as well as tamiflu. Documentation Consultant presented to bedside with RN and patient made aware. Pt verbalized understanding of this information with teach back. See shift assessments and EMAR for full details. Handoff report given to oncoming RN at 06:45.
[2023-07-25 08:00] VITALS: BP 121/57; PULSE 92; RESP 20; TEMP 36.5; O2SAT 96
[2023-07-25] MEDS: Pantoprazole Sodium 40 MG/10 ML VIAL IVPUSH (09:05)
--- NOTE | 2023-07-25 11:24 | P.PNIM_ITS ---
Subjective Subjective Date of Service: 07/25/23 Interval History: seen and examined this morning follow up for anemia history obtained with assistance of [employer] fever overnight and tested positive for influenza A, started on tamiflu cough better and overall feeling better no bleeding Review of Systems Review of Systems: Yes all other systems are reviewed and are negative Constitutional Constitutional: Denies chills and Denies fever(s) Cardiovascular Cardiovascular: Denies chest pain, Denies palpitations and Denies dyspnea Respiratory Respiratory: Reports cough and Denies dyspnea Gastrointestinal Gastrointestinal: Denies abdominal pain Endocrine Endocrine: Denies palpitations Physical Exam 2 Vital Signs: Vital Signs: Last Vital Signs Temp 97.7 F 07/25/23 08:00 Pulse 92 07/25/23 08:00 Resp 20 07/25/23 08:00 BP 121/57 L 07/25/23 08:00 Pulse Ox 96 07/25/23 08:00 O2 Del Method Room Air 07/25/23 08:00 BMI result Body Mass Index 36.1 Const: General: cooperative, comfortable, no acute distress, alert and awake Nutritional Appearance: overweight Orientation/consciousness: patient oriented x3 Resp: Effort & Inspection: normal respiratory effort, able to speak in complete sentences, no respiratory distress and no use of accessory muscles A uscultation: clear to auscultation bilaterally Cardio: Rate: regular rate GI: Inspection: No distended Palpation (GI): Soft to palpation and nontender Neuro: General: patient oriented x3, moves all extremities and CN's II-XI intact bilaterally Extrem: General: Yes no pedal edema Objective Data Active Medications Acetaminophen (Acetaminophen 325 Mg Tablet) 650 mg PO Q6H PRN PRN Reason: Fever Last Admin: 07/25/23 03:36 Dose: 650 mg Documented By: OZ Sodium Chloride (Ns) 1,000 mls @ 100 mls/hr IVCONT .Q10H [facility] Last Admin: 07/25/23 06:29 Dose: 100 mls/hr Documented By: OZ Oseltamivir Phosphate (Oseltamivir Phosphate 30 Mg Capsule) 30 mg PO Q12H [facility] Stop: 07/30/23 06:01 Pantoprazole Sodium (Pantoprazole Sodium 40 Mg/10 Ml Vial) 40 mg IVPUSH Q12H [facility] Last Admin: 07/25/23 09:05 Dose: 40 mg Documented By: ANASTASIYA Sodium Chloride (0.9 % Sodium Chloride Flush 3 Ml Syringe) 3 ml IVFLUSH QSHIFT [facility] Last Admin: 07/25/23 07:42 Dose: Not Given Documented By: ANASTASIYA Non-Admin Reason: IV Running Zolpidem Tartrate (Zolpidem Tartrate 5 Mg Tablet) 5 mg PO BEDTIME PRN PRN Reason: Insomnia Last Admin: 07/23/23 00:39 Dose: 5 mg Documented By: NIRMAL Zolpidem Tartrate (Zolpidem Tartrate 5 Mg Tablet) 5 mg PO BEDTIME [facility] Last Admin: 07/24/23 20:10 Dose: 5 mg Documented By: OZ Labs 07/25/23 04:35 07/25/23 04:35 Labs: Laboratory Results - last 24 hr 07/22/23 07/24/23 07/24/23 19:30 13:50 15:31 MCV MCH MCHC RDW Plt Count MPV Immature Gran % (Auto) Neut % (Auto) Lymph % (Auto) [place] % (Auto) Eos % (Auto) Baso % (Auto) Lymph # (Auto) [place] # (Auto) Eos # (Auto) Baso # (Auto) Abs Immat Gran (auto) Absolute Neuts (auto) Absolute Nucleated RBC Nucleated RBC % (auto) Anion Gap Estim Creat Clear Calc Estimated GFR Random Glucose Lactic Acid Calcium Total Bilirubin AST ALT Alkaline Phosphatase Total Protein Albumin Urine Color Urine Appearance Urine pH Ur Specific [place] Urine Protein Urine Glucose (UA) Urine Ketones Urine Hemoglobin Urine Blood Urine Nitrite Ur Leukocyte Esterase COVID-19 ([facility]TT) Negative COVID-19 Clin Com See Note Influenza Type A (PCR) Influenza Type B (PCR) RSV RNA Qual (PCR) SARS-CoV-2 RNA (RT-PCR) Crossmatch See Detail Clerical Work Check No Error Found Hemolysis Bld Bag Check None in Pre and Post Icterus Blood Bag Check None in Pre and Post Pre-Trans Blood Type O POSITIVE Post-Trans Blood Type O Positive Post-Trans SAMIRA Poly NEGATIVE Post-Trans Add Testing TNP Post-Tx Rxn SAMIRA Result TNP Pathologist Comment BBK SN 07/24/23 07/25/23 07/25/23 16:21 04:35 04:50 MCV 72.9 L MCH 21.3 L MCHC 29.2 L RDW 20.8 H Plt Count 382 MPV 8.8 L Immature Gran % (Auto) 0.4 Neut % (Auto) 81.6 H Lymph % (Auto) 5.8 L [place] % (Auto) 10.4 Eos % (Auto) 1.5 Baso % (Auto) 0.3 Lymph # (Auto) 0.6 L [place] # (Auto) 1.0 Eos # (Auto) 0.2 Baso # (Auto) 0.0 Abs Immat Gran (auto) 0.04 H Absolute Neuts (auto) 8.1 Absolute Nucleated RBC 0.030 H Nucleated RBC % (auto) 0.3 H Anion Gap 15 Estim Creat Clear Calc 49.5 Estimated GFR 32 Random Glucose 139 H Lactic Acid 0.7 Calcium 8.4 Total Bilirubin 1.0 AST 32 ALT 34 Alkaline Phosphatase 106 Total Protein 6.2 L Albumin 3.4 L Urine Color Dark Yellow Urine Appearance Clear Urine pH 8.5 Ur Specific [place] 1.020 Urine Protein Trace Urine Glucose (UA) Negative Urine Ketones Negative Urine Hemoglobin Negative Urine Blood Negative Urine Nitrite Negative Ur Leukocyte Esterase Negative COVID-19 ([facility]) COVID-19 Clin Com Influenza Type A (PCR) POSITIVE A Influenza Type B (PCR) NEGATIVE RSV RNA Qual (PCR) NEGATIVE SARS-CoV-2 RNA (RT-PCR) NEGATIVE Crossmatch Clerical Work Check Hemolysis Bld Bag Check Icterus Blood Bag Check Pre-Trans Blood Type Post-Trans Blood Type Post-Trans SAMIRA Poly Post-Trans Add Testing Post-Tx Rxn SAMIRA Result Pathologist Comment BBK Assessment and Plan (1) Symptomatic anemia: Status: Acute (2) GEETHA (acute kidney injury): Status: Acute Plan This is a 63-year-old man with past medical history significant for essential hypertension, anemia GERD, obesity and hyperlipidemia who presented to the emergency room after being found to have anemia on routine workup. His only complaint was worsening fatigue. He has had no active bleeding since admit Symptomatic anemia hematocrit stable fever today to 102. Transfusion protocol drawn - A post-transfusion workup did not reveal any abnormalities with analysis of the blood product and patient sample; SAMIRA is negative and no features of hemolysis are seen seen by GI, initially planned for colonoscopy - but deferred due to fever - plan to schedule as outpatient Influenza A likely cause of fever cxr negative for pneumonia continue tamiflu GEETHA SCr up to 2.10 from 0.94 lisinopril, lasix stopped IVF started follow renal function, if no improvement in am, will consider nephrology evaluation Hypertension BP soft overnight and metoprolol, lasix and lisinopril stopped follow bp closely Diet controlled T2DM hba1c 5.7 follow POCs, add sliding scale coverage if necessary diabetic diet dvt ppx - SCDs Full. Requires ongoing hospitalization for blood transfusion and specialty consultation to evaluate anemia Quality Stroke Does the patient have a stroke diagnosis?: No VTE Prior VTE?: No VTE Risk Level:: Medical - moderate - high VTE Device Contraindication: N/A - Device Ordered VTE Drug Contraindication: Treatment Not Indicated
[2023-07-25 11:42] VITALS: BP 133/78; PULSE 95; RESP 20; TEMP 36.3; O2SAT 94
[2023-07-25 16:00] VITALS: BP 165/79; PULSE 99; RESP 20; TEMP 37.2; O2SAT 95
[2023-07-25] MEDS: 0.9 % Sodium Chloride Flush 3 ML SYRINGE IVFLUSH (16:01)
[2023-07-25 16:21] LABS: Glucose, Whole Blood 132 mg/dL (60-115)
[2023-07-25] MEDS: Oseltamivir Phosphate 30 MG CAPSULE PO (17:53)
[2023-07-25 19:46] VITALS: BP 156/74; PULSE 110; RESP 21; TEMP 37.6; O2SAT 94
[2023-07-25 20:09] LABS: Glucose, Whole Blood 140 mg/dL (60-115)
[2023-07-25] MEDS: Zolpidem Tartrate 5 MG TABLET PO (21:27)
[2023-07-26] VITALS: BP 122/64; PULSE 94; RESP 22; TEMP 36.7; O2SAT 95
[2023-07-26] MEDS: 0.9 % Sodium Chloride 1,000 ML 100 ML IVCONT (03:35)
[2023-07-26 04:00] VITALS: BP 148/72; PULSE 91; RESP 18; TEMP 37.6; O2SAT 94
[2023-07-26] MEDS: Oseltamivir Phosphate 30 MG CAPSULE PO (05:16)
[2023-07-26 07:03] VITALS: BP 144/82; PULSE 100; RESP 18; TEMP 37.1; O2SAT 95
[2023-07-26 07:25] LABS: Anion Gap 12 (12-20); Blood Urea Nitrogen 15 mg/dL (9-16); Calcium 7.9 mg/dL (8.4-10.2); Carbon Dioxide 25 mmol/L (22-29); Chloride 107 mmol/L (96-108); Glucose Random 135 mg/dL (60-115); Potassium 3.8 mmol/L (3.3-5.1); Sodium 140 mmol/L (135-145)
[2023-07-26 07:43] LABS: Creatinine Clr Calc Pharmacy 125.4; Estimated Glomerular Filt Rate > 60
[2023-07-26 07:57] LABS: Glucose, Whole Blood 141 mg/dL (60-115)
[2023-07-26 08:21] LABS: Hematocrit 29.2 % (42.0-52.0); Hemoglobin 8.4 g/dl (14.0-18.0); Mean Corpuscular HGB Conc 28.8 g/dl (31.0-36.0); Mean Corpuscular Hemoglobin 21.6 pg (27.0-33.0); Mean Corpuscular Volume 75.1 fL (80.0-98.0); Mean Platelet Volume 9.2 fL (9.4-12.4); Platelet Count 367 X10*3/uL (160-400); Red Blood Count 3.89 X10*6/uL (4.60-5.80); Red Cell Distribution Width 21.3 % (11.0-16.0); White Blood Count 7.6 X10*3/uL (4.8-10.8)
[2023-07-26] MEDS: Omeprazole 40 MG CAPSULE.DR PO (09:37)
[2023-07-26 11:03] VITALS: BP 164/83; PULSE 101; RESP 20; TEMP 36.9; O2SAT 98
[2023-07-26 11:23] LABS: Glucose, Whole Blood 122 mg/dL (60-115)
--- NOTE | 2023-07-26 12:35 | P.DS_ITS ---
DS: Providers Provider Date of Service: 07/26/23 Date of admission: 07/22/23 20:49 Date of discharge: 07/26/23 Primary care physician: Katja Olvera MD Consults: 07/23/23 04:57 Consult to Gastroenterology Routine Consulting Provider: Romie Recinos Reason for consultation: Symptomatic anemia. Has provider been notified: No Attending [facility] Discharging clinician: Erika Moore DS: Diagnosis Discharge Diagnosis (1) Symptomatic anemia: Status: Acute (2) GEETHA (acute kidney injury): Status: Acute (3) Influenza A: Status: Acute DS: Summary Hospital Course Hospital Course: From H&P on day of admission Cuong Sr is a very pleasant 63 years old man with past medical history significant for essential hypertension, anemia, GERD, obesity, STEPH (not using CPAP) and hyperlipidemia presents to the emergency department after he was found to have significant anemia on routine blood workup. Patient stated that over the last several weeks he has been feeling tired and fatigue. He noted been quite short of breath with exertion. Her family member who was at bedside commented that he looks quite pale. He denies any headache, palpitations, dizziness, chest pain or cough. He denies fevers c hills. He denied any acute gastrointestinal or genitourinary symptoms. He does not take aspirin daily or any blood thinner. He said that his stools are black in occasions. He does take NSAIDs very occasionally as needed. He does have history of anemia and at some point of his life was taking iron pills. He denies history of blood transfusion or gastrointestinal bleeding. He also denies history of peptic ulcer disease. Patient mentioned that he has had EGDs and colonoscopy in the past, but is unsure about the results. In the ED, he was found to have anemia with hemoglobin of 6.6 with low MCV. Anemia workup is remarkable for low iron level with normal TIBC. Folate and vitamin B12 are normal. Troponin is negative. BUN is elevated and creatinine is normal. There are no significant electrolyte imbalances. ED tx: Two units of PRBCs ordered Symptomatic anemia Received two units of blood with improvement in H/H. fever 07/24 to 101.5 initially thought could be realted to transfusion reaction and Transfusion protocol drawn - A post-transfusion workup did not reveal any abnormalities with analysis of the blood product and patient sample; SAMIRA is negative and no features of hemolysis are seen. She was seen by GI and initially planned for colonoscopy - but deferred due to fever/influenza a and plan to schedule as outpatient. Influenza A likely cause of fever cxr negative for pneumonia. treated with tamiflu. no fever for greater then 24 hours. GEETHA SCr up to 2.10 from 0.94. lisinopril, lasix placed on hold. treated with IVF and resolved. Hypertension BP rebounding and stable, will resume home meds. Time Attestation Discharge coordination time: Greater than 30 minutes Quality: Safe Use of Opioids Does Pt have an Active Cancer Diagnosis on the Problem List?: No Quality: Stroke Does the patient have a stroke diagnosis?: No Physical Exam Vital Signs: Vital Signs: Last Vital Signs Temp 98.4 F 07/26/23 11:03 Pulse 101 H 07/26/23 11:03 Resp 20 07/26/23 11:03 BP 164/83 H 07/26/23 11:03 Pulse Ox 98 07/26/23 11:03 O2 Del Method Room Air 07/26/23 11:03 BMI result Body Mass Index 36.1 Const: General: cooperative, comfortable, no acute distress, alert and awake Nutritional Appearance: overweight Orientation/consciousness: patient oriented x3 Resp: Effort & Inspection: normal respiratory effort, able to speak in complete sentences, no respiratory distress and no use of accessory muscles Auscultation: clear to auscultation bilaterally Cardio: Rate: regular rate GI: Inspection: No distended Palpation (GI): Soft to palpation and nontender Neuro: General: patient oriented x3, moves all extremities and CN's II-XI intact bilaterally Extrem: General: Yes no pedal edema DS: Data Data Completed and Pending Labs on day of discharge: Laboratory Results - last 24 hr 07/24/23 07/25/23 07/25/23 15:31 16:00 20:02 WBC RBC Hgb Hct MCV MCH MCHC RDW Plt Count MPV Absolute Nucleated RBC Nucleated RBC % (auto) Hold Purple Top Sodium Potassium Chloride Carbon Dioxide Anion Gap BUN Creatinine Estim Creat Clear Calc Estimated GFR POC Glucose 132 H 140 H Random Glucose Calcium Clerical Work Check No Error Found Hemolysis Bld Bag Check None in Pre and Post Icterus Blood Bag Check None in Pre and Post Pre-Trans Blood Type O POSITIVE Post-Trans Blood Type O Positive Post-Trans SAMIRA Poly NEGATIVE Post-Trans Add Testing TNP Post-Tx Rxn SAMIRA Result TNP Pathologist Comment BBK SN 07/26/23 07/26/23 07/26/23 06:52 07:50 11:18 WBC 7.6 RBC 3.89 L Hgb 8.4 L Hct 29.2 L MCV 75.1 L MCH 21.6 L MCHC 28.8 L RDW 21.3 H Plt Count 367 MPV 9.2 L Absolute Nucleated RBC 0.000 Nucleated RBC % (auto) 0.0 Hold Purple Top SEE NOTE Sodium 140 Potassium 3.8 Chloride 107 Carbon Dioxide 25 Anion Gap 12 BUN 15 Creatinine 0.83 Estim Creat Clear Calc 125.4 Estimated GFR > 60 POC Glucose 141 H 122 H Random Glucose 135 H Calcium 7.9 L Clerical Work Check Hemolysis Bld Bag Check Icterus Blood Bag Check Pre-Trans Blood Type Post-Trans Blood Type Post-Trans SAMIRA Poly Post-Trans Add Testing Post-Tx Rxn SAMIRA Result Pathologist Comment BBK Preliminary micro results at discharge 07/24/23 13:35 Blood Culture - Preliminary Blood - Venous No growth after 24 hours. 07/24/23 13:35 Blood Culture - Preliminary Blood - Venous No growth after 24 hours. Discharge Plan Discharge Anticipated Discharge Date/Time: 07/26/23 12:24 Patient Disposition: Home, Self-Care Discharge Diagnosis: GEETHA - resolved anemia fever due to influenza a Referrals: Katja Olvera MD [Primary Care Provider] - 1 Week Romie Recinos MD [Physician] - 1 Week Discharge Medications: New oseltamivir [Tamiflu] 75 mg capsule 75 mg PO Q12H 4 Days Qty: 8 0RF Continued metoprolol succinate 50 mg tablet extended release 24 hr 50 mg PO DAILY Qty: 90 0RF omeprazole 40 mg capsule,delayed release(DR/EC) 40 mg PO DAILY Qty: 90 0RF lisinopril 10 mg tablet 10 mg PO DAILY Qty: 90 3RF furosemide 20 mg tablet 20 mg PO DAILY Qty: 90 0RF zolpidem 10 mg tablet 10 mg PO BEDTIME Qty: 30 0RF ferrous sulfate 325 mg (65 mg iron) tablet 325 mg PO BID No Action (DME) FreeStyle Lite Strips Strip See Rx Instructions .Route Qty: 100 1RF Rx Instructions: 1 qd (DME) FreeStyle Lite Strips Strip See Rx Instructions Not Applicable BID Qty: 10 Rx Instructions: As directed (DME) lancets 28 gauge misc See Rx Instructions topical BID Qty: 100 Rx Instructions: As directed (DME) blood-glucose meter [FreeStyle [place]] Kit See Rx Instructions .Route Qty: 1 0RF Rx Instructions: As directed Discharge Orders: Discharge Order (Routine); Ordered 07/26/23 Ordered By: Erika Moore Activity on Discharge: As tolerated Stand Alone Forms: Patient Portal Discharge page Other Ambulatory Orders: Complete Blood Count no Diff (Routine) Timeframe: 1 Week Facility: [facility] - Location: Laboratory Ordered By: Erika Moore Care Plan Goals: see below Health Concerns: symptomatic anemia influenza A GEETHA Plan of Treatment: recommend outpatient follow up with GI to complete planned colonoscopy. blood numbers have remained stable. call PCP or return to the ED if you notice any bleeding Complete course of Tamiflu for influenza a Kidney function has returned to normal repeat CBC in one week Assessment: see discharge summary Patient Instructions: Influenza (GEN)
--- NOTE | 2023-07-26 13:22 | MHC.CM.PN ---
PT MEDICALLY CLEARED FOR DC HOME SELF CARE, PT WILL SELF TRANSPORT
--- NOTE | 2023-07-26 16:03 | P.CDIM_ITS ---
PROVIDER RESPONSE TEXT: To clarify, the appropriate diagnosis supported by the clinical indicators: Iron deficiency anemia secondary to acute on chronic blood loss QUERY TEXT: PHYSICIAN'S DOCUMENTATION REQUEST Date of Query: 07/26/2023 08:33 AM EST Patient Name: Cuong Sr Admit Date: 07/23/2023 Dear Erika Moore, A review of the medical record indicates additional documentation may be needed. Please review below and update the documentation accordingly. Clinical Indicators: GI 07/23 - In the ED, labs showed anemia with H & H of 6.6 and 25.4 with microcytosis, hydrochromia and elevated RDW, iron studies cw KEITH. Two units of PRBC's ordered. Anemia can be due to intermittent GI blood loss from upper GI tract. Monitor CBC ED: Usual hemoglobin is from 12-14 found to have hemoglobin 6.6 IRON: 11 L Transfused 4 units total PRBC's Based on the above, could you clarify which of the following is the most likely type of anemia you ar e evaluating, treating, and/or monitoring? Iron deficiency anemia secondary to chronic blood loss possible, suspected, probable etc. Iron deficiency anemia secondary to acute on chronic blood loss Acute blood loss anemia Other (explain) Clinically unable to determine (explain) Thank you, Paula Del Rio, CCS, CDIS Use of terms such as suspected, likely, concern for, or probable (associated with a specific diagnosi s that is being evaluated, monitored, or treated as if it exists) are acceptable and can be coded in the inpatient se tting, when documented at the time of discharge. Please use your independent medical judgment in providing your response. THIS QUERY IS PART OF THE PERMANENT MEDICAL RECORD
== END 2023-07-26 14:50 | disposition home or self-care (01) | DRG 663 ==
LOC: HO.ED 20:12 → HO.EDOVER 20:59 → HO.IMC 07-23 07:45
PROVIDERS: Anesthesiology; Hospitalist; Internal Medicine Gastroenterology; Admitting Provider Internal Medicine; Emergency Provider Emergency Medicine; PCP Internal Medicine; Visit Provider Physician Assistant Medical
DX: D62 Acute posthemorrhagic anemia (principal); N17.9 Acute kidney failure, unspecified; E11.9 Type 2 diabetes mellitus without complications; E78.5 Hyperlipidemia, unspecified; G47.33 Obstructive sleep apnea (adult) (pediatric); I10 Essential (primary) hypertension; J10.1 Influenza due to other identified influenza virus with other respiratory manifestations; K21.9 Gastro-esophageal reflux disease without esophagitis; Z79.899 Other long term (current) drug therapy
CPT/HCPCS: 0241U; 36415; 71045; 80048; 80053; 81003; 82272; 82728; 82947; 83036; 83605; 84443; 84484; 85025; 85027; 86078; 86850; 86900; 86901; 86923; 87040; 87635; 93005; 99285; C9113; J1170; P9016

== ENCOUNTER → 2023-07-22 18:54 | Outpatient (BNV) | payer OTHER, SELFPAY | PROVIDERS: Admitting Provider Internal Medicine; Emergency Provider Emergency Medicine; PCP Internal Medicine; Visit Provider Internal Medicine Cardiovascular Disease | DX: R06.02 Shortness of breath (principal) | CPT/HCPCS: 93010 ==

== ENCOUNTER → 2023-07-22 20:49 | Outpatient (BNV) | payer OTHER, SELFPAY | PROVIDERS: Admitting Provider Internal Medicine; Emergency Provider Emergency Medicine; PCP Internal Medicine; Visit Provider Internal Medicine Gastroenterology | DX: D64.9 Anemia, unspecified (principal) | CPT/HCPCS: 99222; 99499 ==

== ENCOUNTER → 2023-07-22 20:49 | Outpatient (BNV) | payer OTHER, SELFPAY | PROVIDERS: Admitting Provider Internal Medicine; Emergency Provider Emergency Medicine; Visit Provider Internal Medicine | DX: D64.9 Anemia, unspecified (principal); I10 Essential (primary) hypertension | CPT/HCPCS: 99223; 99232; 99233; 99239 ==

== ENCOUNTER 2023-08-02 08:06 | Outpatient (AMB) | payer OTHER, SELFPAY ==
--- NOTE | 2023-08-02 08:08 | MHC.PC.OV ---
Vital Signs 08/02/23 08:09 Height 6 ft Weight 257 lb BMI 34.9 BP 118/70 Blood Pressure Location Rt brachial Position Sitting Pulse 79 Pulse Source Pulse Oximeter Pulse Oximetry (%) 94 Oxygen Delivery Method Room Air Intake Visit Reasons: Hospital follow up Intake Note: Pt is here today for a Hospital follow up visit. Allergies olmesartan Adverse Reaction (Intermediate, Verified 08/02/23 08:13) Constipation Medication List - Last Reconciled 08/02/23 by Katja Olvera MD blood sugar diagnostic As directed blood sugar diagnostic (FreeStyle Lite Strips) 1 qd blood-glucose meter (FreeStyle [place] kit) As directed ferrous sulfate 325 mg PO BID furosemide 20 mg PO DAILY lancets As directed lisinopril 10 mg PO DAILY metoprolol succinate ER 50 mg PO DAILY omeprazole 40 mg PO DAILY zolpidem 10 mg PO BEDTIME Tobacco use date assessed: 08/02/23 Dental Screening Dental Screen Date: 08/02/23 Did you have a dental visit in the last 12 months?: Yes Did you have a dental problem in the last 6 months where you did not have access to dental care?: No Was dental information given to patient?: Patient has dentist HPI Hospital follow up HPI Details Patient presents for the follow-up of hospitalization for symptomatic iron deficiency anemia. Patient received blood transfusion and workup in the hospital was negative for occult GI bleed. Patient feels better and denies shortness or breath chest pain palpitations. He was recommended to see GI for a workup of iron deficiency anemia. Patient has been following ADA diet for diet controlled diabetes with A1c of 5.7. Hypertension is controlled on lisinopril and metoprolol. [facility] Medical History (Updated 08/02/23 @ 09:17 by Katja Olvera MD) HTN (hypertension) Annual physical exam DJD (degenerative joint disease), lumbar Insomnia Obesity BRADSHAW (dyspnea on exertion) Normal colonoscopy Palpitations Diabetes Hyperlipidemia STEPH (obstructive sleep apnea) Anemia GERD (gastroesophageal reflux disease) SVT (supraventricular tachycardia) Surgical History H/O endoscopy H/O colonoscopy Lipoma of back Family History Father Throat cancer Mother No problems noted. Maternal Grandmother No problems noted. Maternal Grandfather No problems noted. Paternal Grandmother No problems noted. Paternal Grandfather No problems noted. Brother History of open heart surgery Social History Household Members: None Housing: Apartment Do you presently have visiting nurse or other home services: No Alcohol intake: unknown Comment: pt refuses bed alarm, high falls interventions except socks and signage. Patient Tobacco Use Status: Never used Tobacco e-Cigarette/Vaping Use: Never Used Second Hand Smoke Exposure: No service: No Current occupational status: employed Cognitive needs: No Hearing needs: No Vision needs: Yes Questionnaire PHQ-9 Over the last 2 weeks, how often have you been bothered by any of the following problems? 1. Little interest or pleasure in doing things: not at all 2. Feeling down, depressed, or hopeless: not at all 3. Trouble falling or staying asleep, or sleeping too much: more than half the days 4. Feeling tired or having little energy: not at all 5. Poor appetite or overeating: not at all 6. Feeling bad about yourself - or that you are a failure or have let yourself or your family down: not at all 7. Trouble concentrating on things, such as reading the newspaper or watching television: not at all 8. Moving or speaking so slowly that other people could have noticed. Or the opposite - being so fidgety or restless that you have been moving around a lot more than usual: not at all 9. Thoughts that you would be better off or of hurting yourself in some way: not at all Total score: 2 Depression Screening Interpretation: Negative Depression Screening Done: Yes Source: Developed by Drs. Manoj Hernandez, Natali Alanis, Corey Mike and colleagues, with an educational chas from [employer]. Thrive Questionnaire Date Thrive assessed: 08/02/23 I am a: Patient What is your living situation today?: I have a steady place to live Within the past 12 months, did the food you bought not last and you didn't have the money to get more?: Never true Within the past 12 months, did you worry whether your food would run out before you got money to buy more?: Never true Do you have trouble paying for medicines?: No Do you have trouble getting transportation to medical appointments?: No Do you have trouble paying your heating and electricity bill?: No Do you have trouble taking care of your child, family member or friend?: No Do you have trouble with day-to-day activities such as bathing, preparing meals, shopping, managing finances, etc.?: No Are you currently unemployed and looking for a job?: No Are you interested in more education?: No Please select the resources that you would like help with: None THRIVE Score: 0 AUDIT C Alcohol Use Questionnaire (AUDIT-C) 1. How often do you have a drink containing alcohol?: Monthly or less 2. How many drinks containing alcohol do you have on a typical day when you are drinking?: 1 or 2 3. How often do you have six or more drinks on one occasion?: Never Total Score: 1 AMBER-7 AMB Questionnaire AMBER-7 Date AMBER - 7 assessed: 08/02/23 Feeling nervous, anxious, or on edge: 0 = Not at all Not being able to stop or control worryin = Not at all Worrying too much about different things: 0 = Not at all Trouble relaxin = Not at all Being so restless that it is hard to sit still: 0 = Not at all Becoming easily annoyed or irritable: 0 = Not at all Feeling afraid as if something awful might happen: 0 = Not at all Total AMBER-7 score (0-4 normal; 5-9 mild; 10-14 moderate; 15-21 severe): 0 Source: Developed by Drs. Manoj Hernandez, Natali Alanis, Corey Mike and colleagues, with an educational chas from [employer]. Review of Systems Const All systems reviewed & are unremarkable except as noted in HPI and below Reports no additional complaints Eyes Reports no additional complaints ENT Reports no additional complaints Card Reports no additional complaints Resp Reports no additional complaints GI Reports no additional complaints Reports no additional complaints Physical exam (Primary Care) Vital Signs: Last Vital Signs Pulse 79 08/02/23 08:09 BP 118/70 08/02/23 08:09 Pulse Ox 94 08/02/23 08:09 Oxygen Delivery Method Room Air 08/02/23 08:09 BMI result Body Mass Index 34.9 Tobacco/Smoking Status: Tobacco use Status Tobacco use date assessed 08/02/23 08/02/23 08:17 Patient Tobacco Use Status Never used Tobacco 08/02/23 08:17 e-Cigarette/Vaping Use Never Used 08/02/23 08:10 PHQ-9: PHQ-9 Score PHQ-9: Total score 2 08/02/23 08:52 Depression Screening Interpretation: Negative Thrive Assessment: Date of Thrive Assessment Date Thrive assessed 08/02/23 08/02/23 08:52 Const General: no acute distress HENMT Head: Yes normal to inspection Ears: hearing grossly normal bilaterally Eyes General: appearance normal, both eyes and all related structures Neck Neck: Yes no lymphadenopathy and Yes supple Resp Effort & Inspection: normal respiratory effort Auscultation: clear to auscultation bilaterally Cardio Rhythm: regular rhythm Heart sounds: S1 normal heart sound present and S2 normal heart sound present GI Inspection: Yes normal to inspection Palpation (GI): Soft to palpation Percussion: Yes normal to percussion Auscultation: normal bowel sounds Assessment and Plan Assessment & Plan (1) Iron deficiency anemia: Code(s): D50.9 - Iron deficiency anemia, unspecified Plan: Patient will be referred to GI for workup of iron deficiency anemia, he was start iron supplement with vitamin-C have CBC checked next week and in 2 months. (2) Hyperlipidemia: Code(s): E78.5 - Hyperlipidemia, unspecified Plan: Continue low-cholesterol diet (3) Diabetes: Comment: A1C 5.7, 07/24 Code(s): E11.9 - Type 2 diabetes mellitus without complications Plan: ADA diet increase physical activity weight loss discussed with the patient was advised to monitor his fasting blood glucose and records reading, follow-up in 2 months (4) HTN (hypertension): Code(s): I10 - Essential (primary) hypertension Plan: Continue current medications Orders: Orders Complete Blood Count Auto Diff Today E11.9 - Type 2 diabetes mellitus without complications, E78.5 - Hyperlipidemia, unspecified Comprehensive [place]. Panel Fast Today E11.9 - Type 2 diabetes mellitus without complications, E78.5 - Hyperlipidemia, unspecified Complete Blood Count Auto Diff 2 Months D50.9 - Iron deficiency anemia, unspecified, E11.9 - Type 2 diabetes mellitus without complications, E78.5 - Hyperlipidemia, unspecified Hemoglobin A1c 2 Months D50.9 - Iron deficiency anemia, unspecified, E11.9 - Type 2 diabetes mellitus without complications, E78.5 - Hyperlipidemia, unspecified Lipid Panel 2 Months D50.9 - Iron deficiency anemia, unspecified, E11.9 - Type 2 diabetes mellitus without complications, E78.5 - Hyperlipidemia, unspecified PSA,Total (Free>4and<10) 2 Months D50.9 - Iron deficiency anemia, unspecified, E11.9 - Type 2 diabetes mellitus without complications, E78.5 - Hyperlipidemia, unspecified Lipid Panel Today E11.9 - Type 2 diabetes mellitus without complications, E78.5 - Hyperlipidemia, unspecified Comprehensive [place]. Panel Fast 2 Months D50.9 - Iron deficiency anemia, unspecified, E11.9 - Type 2 diabetes mellitus without complications, E78.5 - Hyperlipidemia, unspecified Microalbumin, Random (w Creat) 2 Months D50.9 - Iron deficiency anemia, unspecified, E11.9 - Type 2 diabetes mellitus without complications, E78.5 - Hyperlipidemia, unspecified Referrals Gastroenterology Referral D50.9 - Iron deficiency anemia, unspecified, Z00.00 - Encounter for general adult medical examination without abnormal findings Medications: New ferrous sulfate 325 mg PO DAILY 90 tabs 1RF Discontinued ferrous sulfate Discontinued Reason: Doctor's Order 325 mg PO BID Coding Level of Care Code Est Pt Level 4 (15943) Diagnoses Iron deficiency anemia D50.9 Hyperlipidemia E78.5 Diabetes E11.9 HTN (hypertension) I10
[2023-08-02 08:09] VITALS: BP 118/70; PULSE 79; O2SAT 94; BMI 34.9
== END 2023-08-02 08:51 | disposition home or self-care (01) ==
PROVIDERS: PCP Internal Medicine; Visit Provider Internal Medicine
DX: D50.9 Iron deficiency anemia, unspecified (principal); E78.5 Hyperlipidemia, unspecified; E11.9 Type 2 diabetes mellitus without complications; I10 Essential (primary) hypertension
CPT/HCPCS: 99214

== ENCOUNTER 2023-08-05 08:03 | Outpatient (REF) | payer OTHER, SELFPAY ==
[2023-08-05 11:39] LABS: MANUAL DIFF FLAG NO
[2023-08-05 11:43] LABS: Basophils Percent Auto 0.3 % (0-2); Eosinophils Absolute Auto 0.1 X10*3/uL (0.0-0.4); Eosinophils Percent Auto 1.1 % (0-4); Hematocrit 39.4 % (42.0-52.0); Hemoglobin 11.1 g/dl (14.0-18.0); Imm Gran Abs Auto 0.04 X10*3/uL (0.00-0.03); Imm Gran Pct Auto 0.4 % (0.0-0.4); Lymphocytes Absolute Auto 1.5 X10*3/uL (1.2-4.9); Lymphocytes Percent Auto 15.1 % (20-40); Mean Corpuscular HGB Conc 28.2 g/dl (31.0-36.0); Mean Corpuscular Hemoglobin 21.1 pg (27.0-33.0); Mean Corpuscular Volume 74.8 fL (80.0-98.0); Mean Platelet Volume 9.1 fL (9.4-12.4); Monocytes Absolute Auto 0.6 X10*3/uL (0.1-1.2); Monocytes Percent Auto 6.4 % (2-11); Neutrophils Absolute Auto 7.6 x10*3/uL (2.0-8.3); Neutrophils Percent Auto 76.7 % (45-73); Platelet Count 741 X10*3/uL (160-400); Red Blood Count 5.27 X10*6/uL (4.60-5.80); Red Cell Distribution Width 22.9 % (11.0-16.0)
[2023-08-05 12:30] LABS: Alanine Aminotransferase 22 U/L (0-40); Albumin Level 3.8 g/dL (3.5-5.0); Alkaline Phosphatase 105 U/L (39-117); Anion Gap 12 (12-20); Aspartate Amino Transferase 18 U/L (5-37); Bilirubin Total 0.4 mg/dL (0.0-1.0); Blood Urea Nitrogen 14 mg/dL (9-16); Calcium 9.2 mg/dL (8.4-10.2); Carbon Dioxide 25 mmol/L (22-29); Chloride 105 mmol/L (96-108); Cholesterol 177 mg/dL (<200); Estimated Glomerular Filt Rate > 60; Glucose Fasting 155 mg/dL (60-99); HDL Cholesterol 32 mg/dL (>40); LDL Cholesterol Calculated 112 mg/dL (<100); Potassium 4.3 mmol/L (3.3-5.1); Sodium 138 mmol/L (135-145); Total Protein 7.2 g/dL (6.5-8.0); Triglycerides 168 mg/dL (<150)
== END 2023-08-05 08:04 | disposition home or self-care (01) ==
LOC: HO.HMGCLDS 08:03
PROVIDERS: PCP Internal Medicine; Visit Provider Internal Medicine
DX: E78.5 Hyperlipidemia, unspecified (principal); E11.9 Type 2 diabetes mellitus without complications
CPT/HCPCS: 36415; 80053; 80061; 85025

== ENCOUNTER 2023-09-10 07:10 | Day surgery (SDC) | payer OTHER, SELFPAY ==
--- NOTE | 2023-09-09 08:56 | HO.ANESPROP2 ---
Documented by User: Toma Clarke NP 09/09/23 08:58 HPI - Anesthesia Eval Consult details Narrative: 63yo M for Upper Endoscopy and Colonoscopy [facility] Active Problems Active Problems: All Active Problems (Updated 08/02/23 @ 09:17 by Katja Olvera MD) HTN (hypertension) (Acute) Iron deficiency anemia (Acute) Influenza A (Acute) Cellulitis (Acute) Annual physical exam (Acute) STEPH (obstructive sleep apnea) (Acute) DJD (degenerative joint disease), lumbar (Acute) Insomnia (Acute) Anemia (Acute) Obesity (Acute) Chest discomfort (Acute) BRADSHAW (dyspnea on exertion) (Acute) Normal colonoscopy (Acute) SVT (supraventricular tachycardia) (Acute) Diabetes (Acute) Hyperlipidemia (Acute) Palpitations (Acute) Past Medical History Medical History (Updated 08/02/23 @ 09:17 by Katja Olvera MD) HTN (hypertension) Annual physical exam DJD (degenerative joint disease), lumbar Insomnia Obesity BRADSHAW (dyspnea on exertion) Normal colonoscopy Palpitations Diabetes Hyperlipidemia STEPH (obstructive sleep apnea) Anemia GERD (gastroesophageal reflux disease) SVT (supraventricular tachycardia) Family History Family History Father Throat cancer Mother No problems noted. Maternal Grandmother No problems noted. Maternal Grandfather No problems noted. Paternal Grandmother No problems noted. Paternal Grandfather No problems noted. Brother History of open heart surgery Surgical History Surgical History H/O endoscopy H/O colonoscopy Lipoma of back Social History Social History Household Members: None Housing: Apartment Do you presently have visiting nurse or other home services: No Alcohol intake: unknown Comment: pt refuses bed alarm, high falls interventions except socks and signage. Patient Tobacco Use Status: Never used Tobacco e-Cigarette/Vaping Use: Never Used Second Hand Smoke Exposure: No Use of substances other than those prescribed or required for medical reasons: No Are you DNR?: No Advance Directives: No Advance Directives Information Provided: Yes service: No Current occupational status: employed Cognitive needs: No Hearing needs: No Vision needs: Yes Meds Allergies Allergy/AdvReac Type Severity Reaction Status Date / Time olmesartan AdvReac Intermediate Constipatio Verified 08/02/23 08:13 n Home Medications Medication Instructions Recorded Confirmed Last Taken Type blood sugar diagnostic #10 ea 07/08/20 08/02/23 Unknown History lancets 28 gauge #100 ea 07/08/20 08/02/23 Unknown History Exam Pertinent Lab Results Pertinent Lab Results: Laboratory Tests 08/05/23 08/05/23 08/05/23 08:20 08:20 08:30 WBC 10.0 Hgb 11.1 L D Hct 39.4 L D Plt Count 741 H D Sodium Potassium 4.3 Chloride Carbon Dioxide BUN Creatinine 08/05/23 08/05/23 08:30 08:30 WBC Hgb Hct Plt Count Sodium 138 Potassium Chloride 105 Carbon Dioxide 25 BUN 14 Creatinine 0.98 Narrative Narrative: EKG 07/2023 Vent. Rate : 083 BPM Atrial Rate : 083 BPM P-R Int : 172 ms QRS Dur : 092 ms QT Int : 354 ms P-R-T Axes : 034 014 044 degrees QTc Int : 415 ms Normal sinus rhythm Normal ECG When compared with ECG of 25-SEP-2020 11:07, No significant change was found Assessment and Plan Assessment Anesthesia Assessment: Chart Reviewed Documented by User: Gilbert Vo MD 09/10/23 08:31 [facility] Past Medical History Medical History (Updated 08/02/23 @ 09:17 by Katja Olvera MD) HTN (hypertension) Annual physical exam DJD (degenerative joint disease), lumbar Insomnia Obesity BRADSHAW (dyspnea on exertion) Normal colonoscopy Palpitations Diabetes Hyperlipidemia STEPH (obstructive sleep apnea) Anemia GERD (gastroesophageal reflux disease) SVT (supraventricular tachycardia) Family History Family History Father Throat cancer Mother No problems noted. Maternal Grandmother No problems noted. Maternal Grandfather No problems noted. Paternal Grandmother No problems noted. Paternal Grandfather No problems noted. Brother History of open heart surgery Family history of problems with anesthesia: No Surgical History Surgical History H/O endoscopy H/O colonoscopy Lipoma of back History of Problems with Anesthesia: No Social History Social History Household Members: None Housing: Apartment Do you presently have visiting nurse or other home services: No Alcohol intake: unknown Comment: pt refuses bed alarm, high falls interventions except socks and signage. Patient Tobacco Use Status: Never used Tobacco e-Cigarette/Vaping Use: Never Used Second Hand Smoke Exposure: No Use of substances other than those prescribed or required for medical reasons: No Are you DNR?: No Advance Directives: No Advance Directives Information Provided: Yes service: No Current occupational status: employed Cognitive needs: No Hearing needs: No Vision needs: Yes Meds Allergies Allergy/AdvReac Type Severity Reaction Status Date / Time olmesartan AdvReac Intermediate Constipatio Verified 08/02/23 08:13 n Home Medications Medication Instructions Recorded Confirmed Last Taken Type blood sugar diagnostic #10 ea 07/08/20 08/02/23 Unknown History lancets 28 gauge #100 ea 07/08/20 08/02/23 Unknown History Exam Airway Mallampati Class: II TM Dist: <=3cm Neck ROM: Full Partial: Upper Loose/Missing/Broken Teeth: Yes and Upper Heart: ok Lungs: ok Assessment and Plan Assessment Anesthesia Assessment: Anesthesia Plan Discussed Final Anesthetic Review Family History of Problems with Anesthesia: No History of Problems with Anesthesia: No NPO: Yes ASA Class: III Final Preanesthetic Review: No Changes in Pt Med Stat, Meds/Allgs Chart Reviewed, Consent Obtained/Reviewed and Anes Risks/Benef Reviewed Patient Risk: High (bec of unfavorable airway) Procedure Risk: High Anesthetic Plan Anesthetic Plan: Agree w/ Assess. and Plan and TIVA Disposition: Standard PACU
[2023-09-10 07:54] VITALS: BP 113/71; PULSE 76; RESP 18; TEMP 36.4; O2SAT 97; BMI 36.9
[2023-09-10] MEDS: Lactated Ringers 1,000 ML 100 ML IVCONT (08:00)
--- NOTE | 2023-09-10 08:22 | MHC.SHP ---
Pre-Procedural Eval Section A - 24 Hr Update-Section A only Date of Service: 09/10/23 The patient is an INPATIENT: No The patient has been examined within 24 hours of the surgical procedure. The History & Physical has been completed within 30 days and I have reviewed it.: No Section B - Complete if H&P > 30 days Chief Complaint: Iron-deficiency anemia, intermittent black stool Relevant Family History (Specify if Yes): No Relevant Social History: None Present Medications: see Short Stay Collaborative assessment Medical History: Significant History (DJD (degenerative joint disease), lumbar Insomnia Obesity BRADSHAW (dyspnea on exertion) Normal colonoscopy Palpitations Diabetes Hyperlipidemia STEPH (obstructive sleep apnea) Anemia GERD (gastroesophageal reflux disease) SVT (supraventricular tachycardia), Htn) History of Previous Operations: Relevant previous surgery/procedure and date(s) (H/O endoscopy H/O colonoscopy Lipoma of back) Allergies: Allergies Allergy/AdvReac Type Severity Reaction Status Date / Time olmesartan AdvReac Intermediate Constipatio Verified 08/02/23 08:13 n Review of Systems Sugical H&P ROS: Negative: Constitution, Cardiovascular, Respiratory and Gastrointestinal Exam Surgical H&P Exam: Normal: Heart, Normal: Lungs, Normal: Extremities and Normal: Abdomen Plan Diagnosis/Plan: Unchanged I have reviewed the history and physical and performed a pertinent physical examination on my patient. No changes have occurred unless specified. Time Spent With Patient Time: Total time managing care of this patient today ____ minutes.
--- NOTE | 2023-09-10 08:32 | P.OP_ITS ---
Operative Note Operative Note Date of Service: 09/10/23 Narrative: FLEXIBLE TRANSORAL UPPER GASTROINTESTINAL ENDOSCOPY WITH BIOPSIES AND COLONOSCOPY TILL CECUM WITH SNARE POLYPECTOMY Pre-op diagnosis: Iron deficiency anemia, Colon cancer screening, GERD Post-op diagnosis: Hiatal hernia, GERD, Colon Polyp, Diverticulosis, hemorrhoids Endoscopist:Ludmila Recinos MD Anesthesia:?MAC UPPER ENDOSCOPY Consent: Indications for the procedure and potential complications of bleeding, perforation, reaction to medications and missed diagnosis were discussed with the patient and informed consent was obtained. Instrument: Olympus GIF H 190 mid size upper endoscope Monitoring: Vital signs and clinical assessment, continuous EKG monitoring, Pulse oximetry, Carbon Dioxide monitoring and blood pressure monitoring were done throughout the procedure. Procedure: The patient was placed in the left lateral decubitis position and pre-procedure medications were administered and a bite block was placed. The endoscope was inserted into the mouth and advanced under direct vision to the third part of duodenum. A careful inspection was made as the upper endoscope was withdrawn including a retroflexed examination of the proximal stomach; Findings and interventions are described below. Findings: Larynx: Normal Esophagus: GE junction at 35 cms. A large hiatal hernia 35 to 40 cms. No esophagitis, Feliciano's or Kennedy's ulcers noted in the hiatal hernia sac. Stomach: Normal gastric mucosa - biopsies were obtained from the antrum to check for H pylori. Grade 4 flap valve on retroflexed examination of the cardia. Duodenum: Normal bulb and descending duodenum Biopsies were obtained from descending duodenum to check for celiac sprue Intervention: Biopsies as noted above COLONOSCOPY PROCEDURE NOTE Instrument: Olympus CF H 190 L variable stiffness adult colonoscope Monitoring: Vital signs and clinical assessment, intermittent blood pressure monitoring, continuous EKG monitoring, Pulse oximetry and Carbon Dioxide monitoring were done throughout the procedure. Please see anesthesia flowsheet. Colon withdrawl time was 14 minutes. Procedure: The patient was placed in the left lateral decubitis position and pre-procedure medications were administered. After a digital rectal examination of the ano-rectum, the video colonoscope was inserted into the rectum and advanced through the colon to the cecum. The colonoscope was slowly withdrawn in a retrograde panoramic fashion and the colon mucosa was carefully examined including a retroflexed view of the rectum. Findings and interventions are described below. Procedure Difficulty: without difficulty Findings: Terminal Ileum: Not evaluated Cecum: Normal Ascending Colon: A 7-8 mm sessile polyp in the mid AC - removed with a cold snare Transverse Colon: Normal Descending Colon: Moderate diverticulosis Sigmoid Colon: Moderate diverticulosis Rectum: Normal Ano-rectum: Moderate internal hemorrhoids - one hemorrhoids with slow oozing (likely related to trauma from scope passage) - subsided at the end of the procedure Colon preparation: Good after copious irrigation. There was scattered undigested vegetable matter which could not be suctioned. Norden Bowel Preparation Scale Right colon; 2 Transverse colon: 2 Left colon; 2 (0 = Unprepared colon segment with mucosa not seen due to solid stool that cannot be cleared. 1 = Portion of mucosa of the colon segment seen, but other areas of the colon segment not well seen due to staining, residual stool and/or opaque liquid. 2 = Minor amount of residual staining, small fragments of stool and/or opaque liquid, but mucosa of colon segment seen well. 3 = Entire mucosa of colon segment seen well with no residual staining, small fragments of stool or opaque liquid) Impression and Post Procedure Diagnosis: Endoscopy Findings: ESOPHAGUS: A large hiatal hernia 35 to 40 cms. No esophagitis, Feliciano's or Kennedy's ulcers noted in the hiatal hernia sac. STOMACH: Normal gastric mucosa - biopsies were obtained from the antrum to check for H pylori. Grade 4 flap valve on retroflexed examination of the cardia. DUODENUM: Normal - biopsied to check for celiac sprue Impression and Post Procedure Diagnosis: Colonoscopy Findings: One small polyp was removed Moderate diverticulosis seen in the left colon Moderate hemorrhoids on retroflexed exam. No clear source found for KEITH - pt may have Kennedy's ulcers in the Hiatal hernia sac which have healed with PPI Plan: Pt has a FU appointment on 09/26/[address] Recinos Repeat Colonoscopy in 5 years if polyps are adenomatous and 10 year if polyps are hyperplastic. Above findings were reviewed with the patient and relevant handouts were given and the discharge area. BIOPSIES SHOWED: A. Small bowel, biopsy: Small bowel mucosa with preserved villi and no specific change. B. Gastric antrum, biopsy: Chronic Helicobacter gastritis with mild activity; negative for intestinal metaplasia and dysplasia. C. Colon, ascending, polyp: Tubular adenoma; negative for high-grade dysplasia and carcinom
[2023-09-10 09:25] VITALS: BP 90/59; PULSE 73; RESP 18; TEMP 36.2; O2SAT 94
[2023-09-10 09:43] VITALS: BP 129/83; PULSE 69; RESP 17; TEMP 36.2; O2SAT 98
--- NOTE | 2023-09-10 10:07 | PC.NURSE ---
ilsa from operations executive services interpreted all discharge instructions.
== END 2023-09-10 10:00 | disposition home or self-care (01) ==
PROVIDERS: PCP Internal Medicine; Visit Provider Internal Medicine Gastroenterology
PROC: (CPT 43239; principal; 2023-09-10 08:30)
DX: K29.60 Other gastritis without bleeding (principal); K44.9 Diaphragmatic hernia without obstruction or gangrene; K21.9 Gastro-esophageal reflux disease without esophagitis; D50.9 Iron deficiency anemia, unspecified; Z12.11 Encounter for screening for malignant neoplasm of colon; D12.2 Benign neoplasm of ascending colon; K57.30 Diverticulosis of large intestine without perforation or abscess without bleeding; K64.0 First degree hemorrhoids; Z86.010 Personal history of colon polyps; E11.9 Type 2 diabetes mellitus without complications; I10 Essential (primary) hypertension; G47.33 Obstructive sleep apnea (adult) (pediatric); Z99.89 Dependence on other enabling machines and devices; Z79.899 Other long term (current) drug therapy
CPT/HCPCS: 43239; 45385; 88305; 88313; 88342; J2704

== ENCOUNTER → 2023-09-10 07:10 | Outpatient (BNV) | payer OTHER, SELFPAY | PROVIDERS: PCP Internal Medicine; Visit Provider Internal Medicine Gastroenterology | DX: Z12.11 Encounter for screening for malignant neoplasm of colon (principal); D12.0 Benign neoplasm of cecum; K57.90 Diverticulosis of intestine, part unspecified, without perforation or abscess without bleeding; K64.8 Other hemorrhoids; D50.9 Iron deficiency anemia, unspecified; K21.9 Gastro-esophageal reflux disease without esophagitis; K29.70 Gastritis, unspecified, without bleeding | CPT/HCPCS: 43239; 45385 ==

== ENCOUNTER 2023-09-26 11:46 | Outpatient (REF) | payer OTHER, SELFPAY ==
[2023-09-26 12:49] LABS: MANUAL DIFF FLAG NO
[2023-09-26 13:57] LABS: Estimated Average Glucose 123 mg/dL; Hemoglobin A1C 152.1518 umol/L; Hemoglobin A1c % 5.9 % (<6.0)
[2023-09-26 14:04] LABS: Basophils Percent Auto 0.3 % (0-2); Eosinophils Absolute Auto 0.2 X10*3/uL (0.0-0.4); Eosinophils Percent Auto 1.8 % (0-4); Hemoglobin 14.3 g/dl (14.0-18.0); Imm Gran Abs Auto 0.03 X10*3/uL (0.00-0.03); Imm Gran Pct Auto 0.3 % (0.0-0.4); Lymphocytes Absolute Auto 1.9 X10*3/uL (1.2-4.9); Lymphocytes Percent Auto 20.8 % (20-40); Mean Corpuscular HGB Conc 31.8 g/dl (31.0-36.0); Mean Corpuscular Hemoglobin 26.9 pg (27.0-33.0); Mean Corpuscular Volume 84.7 fL (80.0-98.0); Monocytes Absolute Auto 0.7 X10*3/uL (0.1-1.2); Monocytes Percent Auto 7.4 % (2-11); Neutrophils Absolute Auto 6.3 x10*3/uL (2.0-8.3); Neutrophils Percent Auto 69.4 % (45-73); Platelet Count 319 X10*3/uL (160-400); Red Blood Count 5.31 X10*6/uL (4.60-5.80); Red Cell Distribution Width 22.5 % (11.0-16.0); White Blood Count 9.1 X10*3/uL (4.8-10.8)
[2023-09-26 14:36] LABS: Creatinine Urine 97.04 mg/dL; Microalbumin Urine < 5.0 mg/L
[2023-09-26 14:38] LABS: Alanine Aminotransferase 19 U/L (0-40); Alkaline Phosphatase 113 U/L (39-117); Anion Gap 14 (12-20); Aspartate Amino Transferase 20 U/L (5-37); Bilirubin Total 0.3 mg/dL (0.0-1.0); Blood Urea Nitrogen 13 mg/dL (9-16); Calcium 9.1 mg/dL (8.4-10.2); Carbon Dioxide 28 mmol/L (22-29); Chloride 103 mmol/L (96-108); Cholesterol 199 mg/dL (<200); Estimated Glomerular Filt Rate > 60; Glucose Fasting 103 mg/dL (60-99); HDL Cholesterol 38 mg/dL (>40); LDL Cholesterol Calculated 118 mg/dL (<100); Potassium 4.3 mmol/L (3.3-5.1); Sodium 141 mmol/L (135-145); Total Protein 7.3 g/dL (6.5-8.0); Triglycerides 215 mg/dL (<150)
[2023-09-26 14:45] LABS: PSA,Total (Free>4and<10) 0.75 ng/mL (0.00-4.00)
[2023-09-26 14:56] LABS: Ferritin 38 ng/mL (20-250)
== END 2023-09-26 11:47 | disposition home or self-care (01) ==
LOC: HO.LAB 11:46
PROVIDERS: PCP Internal Medicine; Visit Provider Internal Medicine Gastroenterology
DX: D50.9 Iron deficiency anemia, unspecified (principal); E11.9 Type 2 diabetes mellitus without complications; E78.5 Hyperlipidemia, unspecified; K29.70 Gastritis, unspecified, without bleeding; B96.81 Helicobacter pylori [H. pylori] as the cause of diseases classified elsewhere; Z86.010 Personal history of colon polyps
CPT/HCPCS: 36415; 80053; 80061; 82043; 82570; 82728; 83036; 84153; 85025; 85027; 99212

== ENCOUNTER 2023-09-26 11:46 | Outpatient (AMB) | payer OTHER, SELFPAY ==
--- NOTE | 2023-09-26 11:57 | A.OFFVIS_ITS ---
Intake Vital Signs 09/26/23 11:58 Height 6 ft Weight 259 lb BMI 35.1 BP 135/77 Blood Pressure Location Lt brachial Position Sitting Pulse 75 Intake Visit Reasons: S/p egd/colon Intake Note: Patient follow up for EGD/Colonoscopy results. Patient cc: burping a lot and acid reflex med is helping him. Orthodontist Required: No Accompanied by: Daughter Allergies olmesartan Adverse Reaction (Intermediate, Verified 09/26/23 11:56) Constipation Medication List - Last Reconciled 09/26/23 by Donna Recinos MD blood sugar diagnostic As directed blood sugar diagnostic (FreeStyle Lite Strips) 1 qd blood-glucose meter (FreeStyle [place] kit) As directed ferrous sulfate 325 mg PO DAILY furosemide 20 mg PO DAILY lancets As directed lisinopril 10 mg PO DAILY metoprolol succinate ER 50 mg PO DAILY omeprazole 40 mg PO DAILY zolpidem 10 mg PO BEDTIME HPI S/p egd/colon HPI Details GI clinic visit for this 63 YM for FU after [place] [facility] [place] of anemia to discuss EGD and colon [facility] ENDOSCOPIC STUDIES: 09/10/23 EGD AND COLON SHOWED: Endoscopy Findings: ESOPHAGUS: A large hiatal hernia 35 to 40 cms. No esophagitis, Feliciano's or Kennedy's ulcers noted in the hiatal hernia sac. STOMACH: Normal gastric mucosa - biopsies were obtained from the antrum to check for H pylori. Grade 4 flap valve on retroflexed examination of the cardia. DUODENUM: Normal - biopsied to check for celiac sprue Colonoscopy Findings: One small tubular adenoma was removed Moderate diverticulosis seen in the left colon Moderate hemorrhoids on retroflexed exam. No clear source found for KEITH - pt may have Kennedy's ulcers in the Hiatal hernia sac which have healed with PPI Plan: Repeat Colonoscopy in 5 years. BIOPSIES SHOWED: A. Small bowel, biopsy: Small bowel mucosa with preserved villi and no specific change. B. Gastric antrum, biopsy: Chronic Helicobacter gastritis with mild activity; negative for intestinal metaplasia and dysplasia. C. Colon, ascending, polyp: Tubular adenoma; negative for high-grade dysplasia and carcinom TODAY'S VISIT: Patient cc: burping a lot and acid reflex med is helping him. Pt is accompanied by his daughter who interpreted for the patient Notes a lot of burping and gas - if he eats fast and on the run. Heartburn is controlled with medication. Notes dark stools when he takes his iron pills Pt gives a hx of anemia several years ago, was offered blood transfusion and declined and at some point in his life was taking iron pills. Patient admits to having a two EGDs and a colonoscopy in the [place] [facility] [place] in [place] (Not [place]). (he thinks he may have had a hernia or a n ulcer) Pt has sleep apnea and was on a CPAP machine and lost it during a move. Pt admits to drinking beer on weekends and denies smoking. Family hx: dad with throat cancer (he was a smoker) and a sister had colon polyps removed and is positive for BRCA gene PAST GI HISTORY BY REVIEW OF MEDICAL RECORDS: [place] [facility] [place] for iron- deficiency anemia: Reason for consult: Iron deficiency anemia 63 YM with hypertension, anemia, GERD, o besity, STEPH (not using CPAP) and hyperlipidemia seen [place] [facility] [place] after his routine lab workup revealed microcytic hypochromic anemia. Hx obtained with the help of an [facility] [place] speech language pathologist travel. Patient complained of feeling fatigued with SOB on exertion over the past several weeks. He denies abdominal pain, heartburn, dysphagia, headaches, palpitations, dizziness, chest pain, cough, fever or chills. He notes that he vomits after taking onions or garlic. Pt admits to having intermittent black stools since May, 2023 and none over the past 2-3 weeks. Pt admits to intermittent constipation and takes some medication (does not recall the name) prn. He admits to taking NSAIDs very occasionally as needed and denies taking aspirin or any blood thinner. In the ED, labs showed anemia with H & H of 6.6 and 25.4 with microcytosis, hypochromia and elevated RDW, iron studies cw with KEITH. Folate and vitamin B12 are normal. Troponin is negative. ED tx: Two units of PRBCs ordered and patient was admitted for further manage [facility] Medical History (Updated 09/26/23 @ 17:11 by Donna Recinos MD) HTN (hypertension) Annual physical exam DJD (degenerative joint disease), lumbar Insomnia Obesity BRADSHAW (dyspnea on exertion) Normal colonoscopy Palpitations Diabetes Hyperlipidemia STEPH (obstructive sleep apnea) Anemia GERD (gastroesophageal reflux disease) SVT (supraventricular tachycardia) Surgical History H/O endoscopy H/O colonoscopy Lipoma of back Family History Father Throat cancer Mother No problems noted. Maternal Grandmother No problems noted. Maternal Grandfather No problems noted. Paternal Grandmother No problems noted. Paternal Grandfather No problems noted. Brother History of open heart surgery Social History Household Members: None Housing: Apartment Do you presently have visiting nurse or other home services: No Alcohol intake: unknown Comment: pt refuses bed alarm, high falls interventions except socks and signage. Patient Tobacco Use Status: Never used Tobacco e-Cigarette/Vaping Use: Never Used Second Hand Smoke Exposure: No service: No Current occupational status: employed Cognitive needs: No Hearing needs: No Vision needs: Yes Review of Systems Const All systems reviewed & are unremarkable except as noted in HPI and below Physical Exam Vital Signs: Last Vital Signs Pulse 75 09/26/23 11:58 BP 135/77 09/26/23 11:58 BMI result Body Mass Index 35.1 Const General: no acute distress Nutritional Appearance: obese Orientation/consciousness: patient oriented x3 Limitations: language barrier HEENT Head: Yes normal to inspection Ears: hearing grossly normal bilaterally Eyes Sclerae: sclerae normal Pupils: Equal, round and reactive pupils present Neck Neck: Yes normal visual inspection Chest Chest palpation & inspection: normal inspection of the chest Resp Effort & Inspection: normal respiratory effort Auscultation: clear to auscultation bilaterally Cardio Palpation: normal PMI Rate: regular rate Rhythm: regular rhythm Heart sounds: S1 normal heart sound present, S2 normal heart sound present and no murmurs GI Palpation (GI): Soft to palpation, nontender and No hepatosplenomegaly present Auscultation: normal bowel sounds Rectal Exam - Male: Yes deferred Skin General skin exam: no rashes or lesions noted Neuro General: patient oriented x3, gait normal and moves all extremities Cranial nerves: Yes Equal, round and reactive pupils present Psych Appearance: grossly normal Mental Status: mental status grossly normal Assessment & Plan Assessment & Plan (1) Iron deficiency anemia: Code(s): D50.9 - Iron deficiency anemia, unspecified (2) Helicobacter pylori gastritis: Code(s): K29.70 - Gastritis, unspecified, without bleeding; B96.81 - Helicobacter pylori [H. pylori] as the cause of diseases classified elsewhere (3) History of colon polyps: Comment: 09/10/23 colonoscopy was performed in 1 small tubular adenoma was removed Repeat colonoscopy advised in 5 years. Code(s): Z86.010 - Personal history of colonic polyps Plan 63 year old Kiswahili-speaking male with hypertension, anemia, GERD, obesity, STEPH (not using CPAP) and hyperlipidemia [place] [facility] [place]26[place] with microcytic hypochromic anemia. Patient complained of feeling fatigued with SOB on exertion over the past several weeks. Pt admited to having intermittent constipation and black stools since May, 2023 and none since. He admited to taking NSAIDs very occasionally as needed and denies taking aspirin or any blood thinner. In the ED, labs showed anemia with H & H of 6.6 and 25.4 with microcytosis, hypochromia and elevated RDW, iron studies cw with KEITH. 09/10/23 EGD showed a large hiatal hernia and gastritis. Gastric biopsies are positive for Helicobacter pylori. Same day colonoscopy - 1 small tubular adenoma was removed Repeat colonoscopy advised in 5 years. 09/26/23 patient was prescribed clarithromycin, amoxicillin and omeprazole times 14 days for H pylori gastritis. Repeat CBC for follow-up of iron-deficiency anemia FU in 4 months Orders: Orders Complete Blood Count no Diff Today D50.9 - Iron deficiency anemia, unspecified Ferritin Today D50.9 - Iron deficiency anemia, unspecified Medications: New amoxicillin 1,000 mg (2 x 500 mg) PO Q12H 14 days 56 tabs 0RF B96.81 - Helicobacter pylori [H. pylori] as the cause of diseases classified elsewhere, K29.70 - Gastritis, unspecified, without bleeding clarithromycin 500 mg PO Q12H 14 days 28 tabs 0RF B96.81 - Helicobacter pylori [H. pylori] as the cause of diseases classified elsewhere, K29.70 - Gastritis, unspecified, without bleeding Coding Level of Care Code Est Pt Level 4 (36991) Diagnoses Iron deficiency anemia D50.9 Helicobacter pylori gastritis K29.70; B96.81 History of colon polyps Z86.010 Time Spent (min) 21
[2023-09-26 11:58] VITALS: BP 135/77; PULSE 75; BMI 35.1
== END 2023-09-26 13:07 | disposition home or self-care (01) ==
PROVIDERS: PCP Internal Medicine; Visit Provider Internal Medicine Gastroenterology
DX: D50.9 Iron deficiency anemia, unspecified (principal); K29.70 Gastritis, unspecified, without bleeding; B96.81 Helicobacter pylori [H. pylori] as the cause of diseases classified elsewhere; Z86.010 Personal history of colon polyps
CPT/HCPCS: 99214

== ENCOUNTER 2023-09-30 10:49 | Outpatient (AMB) | payer OTHER, SELFPAY ==
[2023-09-30 10:53] VITALS: BP 114/70; PULSE 74; O2SAT 95; BMI 35.4
--- NOTE | 2023-09-30 10:53 | MHC.PC.OV ---
Vital Signs 09/30/23 10:53 Height 6 ft Weight 261 lb BMI 35.4 BP 114/70 Blood Pressure Location Rt brachial Position Sitting Pulse 74 Pulse Source Pulse Oximeter Pulse Oximetry (%) 95 Oxygen Delivery Method Room Air Intake Visit Reasons: 2 Month follow up Intake Note: Pt is here today for 2 months follow up visit. Allergies olmesartan Adverse Reaction (Intermediate, Verified 09/30/23 10:57) Constipation Medication List - Last Reconciled 09/30/23 by Katja Olvera MD amoxicillin 1,000 mg (2 x 500 mg) PO Q12H 14 days blood sugar diagnostic As directed blood sugar diagnostic (FreeStyle Lite Strips) 1 qd blood-glucose meter (FreeStyle [place] kit) As directed clarithromycin 500 mg PO Q12H 14 days ferrous sulfate 325 mg PO DAILY furosemide 20 mg PO DAILY lancets As directed lisinopril 10 mg PO DAILY metoprolol succinate ER 50 mg PO DAILY omeprazole 40 mg PO DAILY zolpidem 10 mg PO BEDTIME Tobacco use date assessed: 09/30/23 Dental Screening Dental Screen Date: 09/30/23 Did you have a dental visit in the last 12 months?: Yes Did you have a dental problem in the last 6 months where you did not have access to dental care?: No Was dental information given to patient?: Patient has dentist HPI 2 Month follow up HPI Details Patient presents for the follow-up on hypertension diet-controlled type 2 diabetes. He completed course of iron supplement for iron deficiency anemia and has been taking H pylori treatment he follow-up with GI after treatment. Patient has been trying to lose weight cutting down on calories increasing physical activity but has been unable and is interested in trying Wegovy. [facility] Medical History HTN (hypertension) Annual physical exam DJD (degenerative joint disease), lumbar Insomnia Obesity BRADSHAW (dyspnea on exertion) Normal colonoscopy Palpitations Diabetes Hyperlipidemia STEPH (obstructive sleep apnea) Anemia GERD (gastroesophageal reflux disease) SVT (supraventricular tachycardia) Surgical History H/O endoscopy H/O colonoscopy Lipoma of back Family History Father Throat cancer Mother No problems noted. Maternal Grandmother No problems noted. Maternal Grandfather No problems noted. Paternal Grandmother No problems noted. Paternal Grandfather No problems noted. Brother History of open heart surgery Social History Household Members: None Housing: Apartment Do you presently have visiting nurse or other home services: No Alcohol intake: unknown Comment: pt refuses bed alarm, high falls interventions except socks and signage. Patient Tobacco Use Status: Never used Tobacco e-Cigarette/Vaping Use: Never Used Second Hand Smoke Exposure: No service: No Current occupational status: employed Cognitive needs: No Hearing needs: No Vision needs: Yes Questionnaire Thrive Questionnaire Date Thrive assessed: 08/02/23 AMBER-7 AMB Questionnaire AMBER-7 Date AMBER - 7 assessed: 08/02/23 Source: Developed by Drs. Manoj Hernandez, Natali Alanis, Corey Mike and colleagues, with an educational chas from [employer]. Review of Systems Const All systems reviewed & are unremarkable except as noted in HPI and below Reports no additional complaints Eyes Reports no additional complaints ENT Reports no additional complaints Card Reports no additional complaints Resp Reports no additional complaints GI Reports no additional complaints Reports no additional complaints Musc Reports no additional complaints Physical exam (Primary Care) Vital Signs: Last Vital Signs Pulse 74 09/30/23 10:53 BP 114/70 09/30/23 10:53 Pulse Ox 95 09/30/23 10:53 Oxygen Delivery Method Room Air 09/30/23 10:53 BMI result Body Mass Index 35.4 Tobacco/Smoking Status: Tobacco use Status Tobacco use date assessed 09/30/23 09/30/23 10:58 Patient Tobacco Use Status Never used Tobacco 09/30/23 10:55 e-Cigarette/Vaping Use Never Used 09/30/23 10:55 Thrive Assessment: Date of Thrive Assessment Date Thrive assessed 08/02/23 09/30/23 10:55 Const General: no acute distress HENMT Head: Yes normal to inspection Face and sinus: Yes normal facial exam Mouth: Normal oral and palatal mucosa present Neck Neck: Yes supple Cardio Rhythm: regular rhythm Heart sounds: S1 normal heart sound present and S2 normal heart sound present GI Inspection: Yes normal to inspection Palpation (GI): Soft to palpation Percussion: Yes normal to percussion Auscultation: normal bowel sounds Assessment and Plan Assessment & Plan (1) HTN (hypertension): Code(s): I10 - Essential (primary) hypertension Plan: Continue lisinopril and metoprolol (2) Diabetes: Comment: A1C 5.7, 07/24 Code(s): E11.9 - Type 2 diabetes mellitus without complications Plan: A1c is up to 5.9, ADA diet increase exercise weight loss discussed with the patient Wegovy 0.25 mg weekly will be started and side effects discussed with the patient. He will follow-up in November for PE (3) Hyperlipidemia: Code(s): E78.5 - Hyperlipidemia, unspecified Plan: Continue low-cholesterol diet check lipid profile (4) Helicobacter pylori gastritis: Comment: Hospitalized for GI bleed 07/24, f/u with [facility] [place] Code(s): K29.70 - Gastritis, unspecified, without bleeding; B96.81 - Helicobacter pylori [H. pylori] as the cause of diseases classified elsewhere Plan: cont Tx (5) Iron deficiency anemia: Code(s): D50.9 - Iron deficiency anemia, unspecified Plan Off iron supplement , monitor CBC Orders: Orders Hemoglobin A1c 2 Months E11.9 - Type 2 diabetes mellitus without complications, E78.5 - Hyperlipidemia, unspecified, I10 - Essential (primary) hypertension Comprehensive [place]. Panel Fast 2 Months E11.9 - Type 2 diabetes mellitus without complications, E78.5 - Hyperlipidemia, unspecified, I10 - Essential (primary) hypertension Lipid Panel 2 Months E11.9 - Type 2 diabetes mellitus without complications, E78.5 - Hyperlipidemia, unspecified, I10 - Essential (primary) hypertension Microalbumin, Random (w Creat) 2 Months E11.9 - Type 2 diabetes mellitus without complications, E78.5 - Hyperlipidemia, unspecified, I10 - Essential (primary) hypertension Complete Blood Count Auto Diff 2 Months E11.9 - Type 2 diabetes mellitus without complications, E78.5 - Hyperlipidemia, unspecified, I10 - Essential (primary) hypertension Medications: New Wegovy (semaglutide (weight loss)) 0.25 mg (0.5 mL) subcut QWEEK 2 mL 3RF NS Discontinued ferrous sulfate Discontinued Reason: Doctor's Order 325 mg PO DAILY 90 tabs 1RF Coding Level of Care Code Est Pt Level 4 (95830) Diagnoses HTN (hypertension) I10 Diabetes E11.9 Hyperlipidemia E78.5 Helicobacter pylori gastritis K29.70; B96.81 Iron deficiency anemia D50.9
== END 2023-09-30 11:38 | disposition home or self-care (01) ==
PROVIDERS: PCP Internal Medicine; Visit Provider Internal Medicine
DX: I10 Essential (primary) hypertension (principal); E11.9 Type 2 diabetes mellitus without complications; E78.5 Hyperlipidemia, unspecified; K29.70 Gastritis, unspecified, without bleeding; B96.81 Helicobacter pylori [H. pylori] as the cause of diseases classified elsewhere; D50.9 Iron deficiency anemia, unspecified
CPT/HCPCS: 99214

== ENCOUNTER 2024-01-09 09:10 | Outpatient (REF) | payer OTHER, SELFPAY ==
[2024-01-09 13:10] LABS: MANUAL DIFF FLAG NO
[2024-01-09 13:22] LABS: Basophils Percent Auto 0.3 % (0-2); Eosinophils Absolute Auto 0.2 X10*3/uL (0.0-0.4); Eosinophils Percent Auto 2.2 % (0-4); Hematocrit 44.3 % (42.0-52.0); Hemoglobin 14.7 g/dl (14.0-18.0); Imm Gran Abs Auto 0.03 X10*3/uL (0.00-0.03); Imm Gran Pct Auto 0.3 % (0.0-0.4); Lymphocytes Absolute Auto 1.4 X10*3/uL (1.2-4.9); Lymphocytes Percent Auto 15.1 % (20-40); Mean Corpuscular HGB Conc 33.2 g/dl (31.0-36.0); Mean Corpuscular Hemoglobin 30.9 pg (27.0-33.0); Mean Corpuscular Volume 93.3 fL (80.0-98.0); Mean Platelet Volume 9.4 fL (9.4-12.4); Monocytes Absolute Auto 0.7 X10*3/uL (0.1-1.2); Monocytes Percent Auto 7.6 % (2-11); Neutrophils Absolute Auto 6.7 x10*3/uL (2.0-8.3); Neutrophils Percent Auto 74.5 % (45-73); Platelet Count 373 X10*3/uL (160-400); Red Blood Count 4.75 X10*6/uL (4.60-5.80); White Blood Count 9.1 X10*3/uL (4.8-10.8)
[2024-01-09 13:28] LABS: Estimated Average Glucose 128 mg/dL; Hemoglobin A1c % 6.1 % (<6.0)
[2024-01-09 13:48] LABS: Alanine Aminotransferase 32 U/L (0-40); Albumin Level 4.1 g/dL (3.5-5.0); Alkaline Phosphatase 106 U/L (39-117); Anion Gap 12 (12-20); Aspartate Amino Transferase 21 U/L (5-37); Bilirubin Total 0.5 mg/dL (0.0-1.0); Blood Urea Nitrogen 10 mg/dL (9-16); Calcium 9.5 mg/dL (8.4-10.2); Carbon Dioxide 26 mmol/L (22-29); Chloride 105 mmol/L (96-108); Cholesterol 203 mg/dL (<200); Estimated Glomerular Filt Rate > 60; Glucose Fasting 130 mg/dL (60-99); HDL Cholesterol 41 mg/dL (>40); LDL Cholesterol Calculated 139 mg/dL (<100); Potassium 4.5 mmol/L (3.3-5.1); Sodium 138 mmol/L (135-145); Total Protein 7.4 g/dL (6.5-8.0); Triglycerides 117 mg/dL (<150)
[2024-01-09 14:38] LABS: Microalbumin Urine < 5.0 mg/L
== END 2024-01-09 09:11 | disposition home or self-care (01) ==
LOC: HO.HMGCLDS 09:10
PROVIDERS: PCP Internal Medicine; Visit Provider Internal Medicine
DX: I10 Essential (primary) hypertension (principal); E11.9 Type 2 diabetes mellitus without complications; E78.5 Hyperlipidemia, unspecified
CPT/HCPCS: 36415; 80053; 80061; 82043; 82570; 83036; 85025

== ENCOUNTER 2024-01-10 13:26 | Outpatient (AMB) | payer OTHER, SELFPAY ==
[2024-01-10 13:30] VITALS: BP 130/78; PULSE 74; O2SAT 95; BMI 35.8
--- NOTE | 2024-01-10 13:30 | MHC.PC.OV ---
Vital Signs 01/10/24 13:30 Height 6 ft Weight 264 lb BMI 35.8 BP 130/78 Blood Pressure Location Rt brachial Position Sitting Pulse 74 Pulse Source Pulse Oximeter Pulse Oximetry (%) 95 Oxygen Delivery Method Room Air Intake Visit Reasons: PE Intake Note: Pt is here today for PE. Allergies olmesartan Adverse Reaction (Intermediate, Verified 01/10/24 13:35) Constipation Medication List - Last Reconciled 01/10/24 by Katja Olvera MD blood sugar diagnostic As directed blood sugar diagnostic (FreeStyle Lite Strips) 1 qd blood-glucose meter (FreeStyle [place] kit) As directed furosemide 20 mg PO DAILY lancets As directed lisinopril 10 mg PO DAILY metoprolol succinate ER 50 mg PO DAILY omeprazole 40 mg PO DAILY Wegovy (semaglutide (weight loss)) 0.25 mg (0.5 mL) subcut QWEEK NS zolpidem 10 mg PO BEDTIME Tobacco use date assessed: 09/30/23 Dental Screening Dental Screen Date: 09/30/23 HPI PE HPI Details Patient presents for physical [facility] Medical History HTN (hypertension) Annual physical exam DJD (degenerative joint disease), lumbar Insomnia Obesity BRADSHAW (dyspnea on exertion) Normal colonoscopy Palpitations Diabetes Hyperlipidemia STEPH (obstructive sleep apnea) Anemia GERD (gastroesophageal reflux disease) SVT (supraventricular tachycardia) Surgical History H/O endoscopy H/O colonoscopy Lipoma of back Family History Father Throat cancer Mother No problems noted. Maternal Grandmother No problems noted. Maternal Grandfather No problems noted. Paternal Grandmother No problems noted. Paternal Grandfather No problems noted. Brother History of open heart surgery Social History Household Members: None Housing: Apartment Do you presently have visiting nurse or other home services: No Alcohol intake: unknown Comment: pt refuses bed alarm, high falls interventions except socks and signage. Patient Tobacco Use Status: Never used Tobacco e-Cigarette/Vaping Use: Never Used Second Hand Smoke Exposure: No service: No Current occupational status: employed Cognitive needs: No Hearing needs: No Vision needs: Yes Questionnaire Thrive Questionnaire Date Thrive assessed: 08/02/23 AMBER-7 AMB Questionnaire AMBER-7 Date AMBER - 7 assessed: 08/02/23 Source: Developed by Drs. Manoj Hernandez, Natali Alanis, Corey Mike and colleagues, with an educational chas from [employer]. Review of Systems Const All systems reviewed & are unremarkable except as noted in HPI and below Eyes Reports no additional complaints Card Reports no additional complaints Resp Reports no additional complaints GI Reports no additional complaints Reports no additional complaints Physical exam (Primary Care) Vital Signs: Last Vital Signs Pulse 74 01/10/24 13:30 Pulse Ox 95 01/10/24 13:30 Oxygen Delivery Method Room Air 01/10/24 13:30 BMI result Body Mass Index 35.8 Tobacco/Smoking Status: Tobacco use Status Tobacco use date assessed 09/30/23 01/10/24 13:30 Patient Tobacco Use Status Never used Tobacco 01/10/24 13:30 e-Cigarette/Vaping Use Never Used 01/10/24 13:30 Thrive Assessment: Date of Thrive Assessment Date Thrive assessed 08/02/23 01/10/24 13:30 Const General: no acute distress HENMT Head: Yes normal to inspection Mouth: Normal oral and palatal mucosa present Eyes General: appearance normal, both eyes and all related structures Neck Neck: Yes no lymphadenopathy and Yes supple Resp Effort & Inspection: normal respiratory effort Auscultation: clear to auscultation bilaterally Cardio Rhythm: regular rhythm Heart sounds: S1 normal heart sound present and S2 normal heart sound present GI Inspection: Yes normal to inspection Palpation (GI): Soft to palpation Percussion: Yes normal to percussion Auscultation: normal bowel sounds Assessment and Plan Assessment & Plan (1) Diabetes: Comment: A1C 5.7, 07/24 Code(s): E11.9 - Type 2 diabetes mellitus without complications Plan: A1c is 6.1, ADA diet increase exercise weight loss discussed with the patient follow-up in 3 months with a fasting labs before (2) Hyperlipidemia: Code(s): E78.5 - Hyperlipidemia, unspecified Plan: Low-cholesterol diet increase exercise weight loss discussed with the patient (3) SVT (supraventricular tachycardia): Comment: on Metoprolol, Echo 08/2020 normal Code(s): I47.1 - Supraventricular tachycardia Plan: Continue metoprolol (4) HTN (hypertension): Code(s): I10 - Essential (primary) hypertension Plan: Continue current medications (5) Annual physical exam: Code(s): Z00.00 - Encounter for general adult medical examination without abnormal findings Plan: Increase physical activity weight loss well-balanced diet discussed with the patient, return in 3 months with a fasting labs before Orders: Orders Hemoglobin A1c 3 Months E11.9 - Type 2 diabetes mellitus without complications, E78.5 - Hyperlipidemia, unspecified, I10 - Essential (primary) hypertension, I47.1 - Supraventricular tachycardia, Z00.00 - Encounter for general adult medical examination without abnormal findings Lipid Panel 3 Months E11.9 - Type 2 diabetes mellitus without complications, E78.5 - Hyperlipidemia, unspecified, I10 - Essential (primary) hypertension, I47.1 - Supraventricular tachycardia, Z00.00 - Encounter for general adult medical examination without abnormal findings Complete Blood Count Auto Diff 3 Months E11.9 - Type 2 diabetes mellitus without complications, E78.5 - Hyperlipidemia, unspecified, I10 - Essential (primary) hypertension, I47.1 - Supraventricular tachycardia, Z00.00 - Encounter for general adult medical examination without abnormal findings Microalbumin, Random (w Creat) 3 Months E11.9 - Type 2 diabetes mellitus without complications, E78.5 - Hyperlipidemia, unspecified, I10 - Essential (primary) hypertension, I47.1 - Supraventricular tachycardia, Z00.00 - Encounter for general adult medical examination without abnormal findings Comprehensive [place]. Panel Fast 3 Months E11.9 - Type 2 diabetes mellitus without complications, E78.5 - Hyperlipidemia, unspecified, I10 - Essential (primary) hypertension, I47.1 - Supraventricular tachycardia, Z00.00 - Encounter for general adult medical examination without abnormal findings Medications: Discontinued zolpidem Discontinued Reason: Doctor's Order 10 mg PO BEDTIME 30 tabs 0RF Wegovy (semaglutide (weight loss)) Discontinued Reason: Doctor's Order 0.25 mg (0.5 mL) subcut QWEEK 2 mL 3RF NS Coding Level of Care Code Est Pt Prev Care 40-64y(29923) Diagnoses Diabetes E11.9 Hyperlipidemia E78.5 SVT (supraventricular tachycardia) I47.1 HTN (hypertension) I10 Annual physical exam Z00.00
== END 2024-01-10 14:07 | disposition home or self-care (01) ==
PROVIDERS: PCP Internal Medicine; Visit Provider Internal Medicine
DX: E11.9 Type 2 diabetes mellitus without complications (principal); E78.5 Hyperlipidemia, unspecified; I47.10 Supraventricular tachycardia, unspecified; I10 Essential (primary) hypertension; Z00.00 Encounter for general adult medical examination without abnormal findings
CPT/HCPCS: 99396

== ENCOUNTER 2024-03-19 11:14 | Outpatient (AMB) | payer OTHER, SELFPAY ==
--- NOTE | 2024-03-19 11:24 | A.OFFVIS_ITS ---
Vital Signs 03/19/24 11:26 Height 6 ft Weight 264 lb BMI 35.8 BP 149/72 H Blood Pressure Location Lt brachial Position Sitting Pulse 64 Intake Visit Reasons: helicobacter pylori Intake Note: Patient follow up for helicobacter pylori and lab results. Patient cc: constipation with some bleeding on and off, denies any other GI issues. Department Specialist Required: No Accompanied by: Family/Other Allergies olmesartan Adverse Reaction (Intermediate, Verified 03/19/24 11:24) Constipation Medication List - Last Reconciled 03/19/24 by Donna Recinos MD blood sugar diagnostic As directed blood sugar diagnostic (FreeStyle Lite Strips) 1 qd blood-glucose meter (FreeStyle [place] kit) As directed furosemide 20 mg PO DAILY lancets As directed lisinopril 10 mg PO DAILY metoprolol succinate ER 50 mg PO DAILY omeprazole 40 mg PO DAILY HPI HPI helicobacter pylori: Details: GI clinic visit for this 63 YM for FU of iron-deficiency anemia TODAY'S VISIT: Patient follow up for helicobacter pylori and lab results. Patient cc: constipation with some bleeding on and off, denies any other GI issues. Last episode of rectal bleeding was 2 weeks ago Has episodes twice a month - concerned about recurrent anemia. Blood is bright red and notes blood in the toilet bowl - separate and sometimes mixed with the stool. Has bleeding after he has a BM. Denies abdominal. Notes rectal pain after a BM. Has a BM daily Takes an OTC medication daily for constipation (stool softener) PAST VISITS: Patient cc: burping a lot and acid reflex med is helping him. Pt is accompanied by his daughter who interpreted for the patient Notes a lot of burping and gas - if he eats fast and on the run. Heartburn is controlled with medication. Notes dark stools when he takes his iron pills Pt gives a hx of anemia several years ago, was offered blood transfusion and declined and at some point in his life was taking iron pills. Patient admits to having a two EGDs and a colonoscopy in the past (one at [facility] [place] and more recently (05/2020) in [place] (Not [place]). (he thinks he may have had a hernia or an ulcer) Pt has sleep apnea and was on a CPAP machine and lost it during a move. Pt admits to drinking beer on weekends and denies smoking. Family hx: dad with throat cancer (he was a smoker) and a sister had colon polyps removed and is positive for BRCA gene LABS IN [facility] : Reviewed ENDOSCOPIC STUDIES: 09/10/23 EGD AND COLON SHOWED:Endoscopy Findings: ESOPHAGUS: A large hiatal hernia 35 to 40 cms. No esophagitis, Feliciano's or Kennedy's ulcers noted in the hiatal hernia sac. STOMACH: Normal gastric mucosa - biopsies were obtained from the antrum to check for H pylori. Grade 4 flap valve on retroflexed examination of the cardia. DUODENUM: Normal - biopsied to check for celiac sprue Colonoscopy Findings: One small tubular adenoma was removed Moderate diverticulosis seen in the left colon Moderate hemorrhoids on retroflexed exam. No clear source found for KEITH - pt may have Kennedy's ulcers in the Hiatal hernia sac which have healed with PPI Plan: Repeat Colonoscopy in 5 years. BIOPSIES SHOWED: A. Small bowel, biopsy: Small bowel mucosa with preserved villi and no specific change. B. Gastric antrum, biopsy: Chronic Helicobacter gastritis with mild activity; negative for intestinal metaplasia and dysplasia. C. Colon, ascending, polyp: Tubular adenoma; negative for high-grade dysplasia and carcinoma PAST GI HISTORY BY REVIEW OF MEDICAL RECORDS: [place] was [place] [facility] [place] for iron- deficiency anemia: Reason for consult: Iron deficiency anemia 63 YM with hypertension, anemia, GERD, obesity, STEPH (not using CPAP) and hyperlipidemia seen [place] [facility] [place] after his routine lab workup revealed microcytic hypochromic anemia. Hx obtained with the help of an [facility] [place] foreign language stenographer. Patient complained of feeling fatigued with SOB on exertion over the past several weeks. He denies abdominal pain, heartburn, dysphagia, headaches, palpitations, dizziness, chest pain, cough, fever or chills. He notes that he vomits after taking onions or garlic. Pt admits to having intermittent black stools since May, 2023 and none over the past 2-3 weeks. Pt admits to intermittent constipation and takes some medication (does not recall the name) prn. He admits to taking NSAIDs very occasionally as needed and denies taking aspirin or any blood thinner. In the ED, labs showed anemia with H & H of 6.6 and 25.4 with microcytosis, hypochromia and elevated RDW, iron studies cw with KEITH. Folate and vitamin B12 are normal. Troponin is negative. ED tx: Two units of PRBCs ordered and patient was admitted for further management [facility] Medical History HTN (hypertension) Annual physical exam DJD (degenerative joint disease), lumbar Insomnia Obesity BRADSHAW (dyspnea on exertion) Normal colonoscopy Palpitations Diabetes Hyperlipidemia STEPH (obstructive sleep apnea) Anemia GERD (gastroesophageal reflux disease) SVT (supraventricular tachycardia) Surgical History H/O endoscopy H/O colonoscopy Lipoma of back Family History Father Throat cancer Mother No problems noted. Maternal Grandmother No problems noted. Maternal Grandfather No problems noted. Paternal Grandmother No problems noted. Paternal Grandfather No problems noted. Brother History of open heart surgery Social History Household Members: None Housing: Apartment Do you presently have visiting nurse or other home services: No Alcohol intake: unknown Comment: pt refuses bed alarm, high falls interventions except socks and signage. Patient Tobacco Use Status: Never used Tobacco e-Cigarette/Vaping Use: Never Used Second Hand Smoke Exposure: No service: No Current occupational status: employed Cognitive needs: No Hearing needs: No Vision needs: Yes Review of Systems Const All systems reviewed & are unremarkable except as noted in HPI and below Physical Exam Vital Signs: Last Vital Signs Pulse 64 03/19/24 11:26 BP 149/72 H 03/19/24 11:26 BMI result Body Mass Index 35.8 Const General: no acute distress Nutritional Appearance: obese Orientation/consciousness: patient oriented x3 Limitations: language barrier HEENT Head: Yes normal to inspection Ears: hearing grossly normal bilaterally Eyes Sclerae: sclerae normal Pupils: Equal, round and reactive pupils present Neck Neck: Yes normal visual inspection Chest Chest palpation & inspection: normal inspection of the chest Resp Effort & Inspection: normal respiratory effort Auscultation: clear to auscultation bilaterally Cardio Palpation: normal PMI Rate: regular rate Rhythm: regular rhythm Heart sounds: S1 normal heart sound present, S2 normal heart sound present and no murmurs GI Palpation (GI): Soft to palpation, nontender and No hepatosplenomegaly present Auscultation: normal bowel sounds Rectal Exam - Male: Yes deferred Skin General skin exam: no rashes or lesions noted Neuro General: patient oriented x3, gait normal and moves all extremities Cranial nerves: Yes Equal, round and reactive pupils present Psych Appearance: grossly normal Mental Status: mental status grossly normal Assessment & Plan Assessment & Plan (1) Iron deficiency anemia: Code(s): D50.9 - Iron deficiency anemia, unspecified Category: Medical (2) Helicobacter pylori gastritis: Comment: Hospitalized for GI bleed 07[place]24, [place] [facility] [place] Code(s): K29.70 - Gastritis, unspecified, without bleeding; B96.81 - Helicobacter pylori [H. pylori] as the cause of diseases classified elsewhere Category: Medical (3) History of colon polyps: Comment: 09/10/23 colonoscopy was performed in 1 small tubular adenoma was removed Repeat colonoscopy advised in 5 years. Code(s): Z86.010 - Personal history of colonic polyps Category: Medical (4) Hemorrhoids, internal, with bleeding: Code(s): K64.8 - Other hemorrhoids Category: Medical Plan 63 year old Irish-speaking male with hypertension, anemia, GERD, obesity, STEPH (not using CPAP) and hyperlipidemia [place] [facility] [place] 07/26/23 with microcytic hypochromic anemia. Patient complained of feeling fatigued with SOB on exertion over the past several weeks. Pt admited to having intermittent constipation and black stools since May, 2023 and none since. He admited to taking NSAIDs very occasionally as needed and denies taking aspirin or any blood thinner. In the ED, labs showed anemia with H & H of 6.6 and 25.4 with microcytosis, hypochromia and elevated RDW, iron studies cw with KEITH. 09/10/23 EGD showed a large hiatal hernia and gastritis. Gastric biopsies are positive for Helicobacter pylori. Same day colonoscopy - 1 small tubular adenoma was removed Repeat colonoscopy advised in 5 years. 09/26/23 patient was prescribed clarithromycin, amoxicillin and omeprazole times 14 days for H pylori gastritis. Repeat CBC for follow-up of iron-deficiency anemia 03/19/24 Last episode of rectal bleeding was 2 weeks ago Has episodes twice a month - concerned about recurrent anemia. Blood is bright red and notes blood in the toilet bowl - separate and sometimes mixed with the stool. Hydrocortisone cream and fiber supplements for hemorrhoids. Pt advised to hold Omeprazole x 2 weeks and FU appt scheduled with GI MA for H pylori breath test. Patient was advised to inform the MA if he had continued bleeding on follow-up visit in 2 weeks. Bleeding continues he will be referred to surgery to be evaluated for band ligation or hemorrhoidectomy ADDENDUM: Repeat CBC - H & H was stable without anemia FU in 3 month Orders: Orders Complete Blood Count no Diff Today D50.9 - Iron deficiency anemia, unspecified Ferritin Today D50.9 - Iron deficiency anemia, unspecified Medications: New psyllium husk (Fiber (psyllium husk)) 0.52 grams PO BID 60 days PRN 120 caps 3RF constipation K59.00 - Constipation, unspecified psyllium husk (Fiber (psyllium husk)) 0.52 grams PO BID 60 days PRN 120 caps 3RF constipation K59.00 - Constipation, unspecified hydrocortisone 2.5% 1 appl ME BID-QID 30 days PRN 30 grams 2RF hemorrhoids K64.8 - Other hemorrhoids ferrous sulfate 324 mg PO DAILY 90 days 90 tabs 1RF hydrocortisone 2.5% 1 appl ME BID-QID 30 days PRN 30 grams 2RF hemorrhoids K64.8 - Other hemorrhoids Coding Level of Care Code Est Pt Level 4 (28016) Diagnoses Iron deficiency anemia D50.9 Helicobacter pylori gastritis K29.70; B96.81 History of colon polyps Z86.010 Hemorrhoids, internal, with bleeding K64.8 Time Spent (min) 22
[2024-03-19 11:26] VITALS: BP 149/72; PULSE 64; BMI 35.8
== END 2024-03-19 13:25 | disposition home or self-care (01) ==
PROVIDERS: PCP Internal Medicine; Visit Provider Internal Medicine Gastroenterology
DX: D50.9 Iron deficiency anemia, unspecified (principal); K29.70 Gastritis, unspecified, without bleeding; B96.81 Helicobacter pylori [H. pylori] as the cause of diseases classified elsewhere; Z86.010 Personal history of colon polyps; K64.8 Other hemorrhoids
CPT/HCPCS: 99214

== ENCOUNTER 2024-03-19 11:14 | Outpatient (REF) | payer OTHER, SELFPAY ==
[2024-03-19 13:01] LABS: Hematocrit 44.5 % (42.0-52.0); Hemoglobin 14.8 g/dl (14.0-18.0); Mean Corpuscular HGB Conc 33.3 g/dl (31.0-36.0); Mean Corpuscular Hemoglobin 30.8 pg (27.0-33.0); Mean Corpuscular Volume 92.5 fL (80.0-98.0); Mean Platelet Volume 9.5 fL (9.4-12.4); Platelet Count 313 X10*3/uL (160-400); Red Blood Count 4.81 X10*6/uL (4.60-5.80); Red Cell Distribution Width 12.6 % (11.0-16.0); White Blood Count 9.6 X10*3/uL (4.8-10.8)
[2024-03-19 14:16] LABS: Ferritin 38 ng/mL (20-250)
== END 2024-03-19 11:15 | disposition home or self-care (01) ==
LOC: HO.LAB 11:14
PROVIDERS: PCP Internal Medicine; Visit Provider Internal Medicine Gastroenterology
DX: D50.9 Iron deficiency anemia, unspecified (principal); K29.70 Gastritis, unspecified, without bleeding; B96.81 Helicobacter pylori [H. pylori] as the cause of diseases classified elsewhere; Z86.010 Personal history of colon polyps; K64.8 Other hemorrhoids
CPT/HCPCS: 36415; 82728; 85027; 99212

== ENCOUNTER 2024-04-03 08:05 | Outpatient (AMB) | payer OTHER, SELFPAY ==
--- NOTE | 2024-04-03 08:18 | AM.OFFVISNUR ---
Intake Visit Reasons: Breath testing Allergies olmesartan Adverse Reaction (Intermediate, Verified 03/19/24 11:24) Constipation Nursing Note Patient presents for collection of H Pylori breath test. Patient has been fasting for 1 hour (nothing to eat, drink, no chewing gum or smoking) has not taken any antacid medication for at least 2 weeks and has no allergies to artificial sweeteners.?? Assessment & Plan Assessment & Plan (1) Helicobacter pylori gastritis: Comment: Hospitalized for GI bleed 07/24, f/u with [facility] Code(s): K29.70 - Gastritis, unspecified, without bleeding; B96.81 - Helicobacter pylori [H. pylori] as the cause of diseases classified elsewhere Category: Medical Plan Patient presents for collection of H Pylori breath test. Patient has been fasting for 1 hour (nothing to eat, drink, no chewing gum or smoking) has not taken any antacid medication for at least 2 weeks and has no allergies to artificial sweeteners.???This test checks for an overgrowth of bacteria in your stomach. We all have bacteria but some may have more than others. It is treatable. if the test comes back negative there is nothing else to do. If the test result is positive we will treat you with 2 antibiotics and a medication to decrease the acid in your stomach (PPI) for 2 weeks. Two weeks after you have completed the treatment we will retest you to make sure the overgrowth has resolved. Orders: Orders H Pylori Breath Test Today Patient Instructions: Process for specimen collection and reason for testing was explained to the patient. Specimen collection. Patient instructed to take a deep breath and then exhale into the blue bag, filling it up as much as possible. Patient instructed to drink a mixture of water and the artificial sweetener with a straw. A 15 minute wait period was observed. Patient instructed to take a deep breath and then exhale into the pink bag, filling it up as much as possible.??
== END 2024-04-03 08:33 | disposition home or self-care (01) ==
PROVIDERS: PCP Internal Medicine; Visit Provider Internal Medicine Gastroenterology
DX: K29.70 Gastritis, unspecified, without bleeding (principal); B96.81 Helicobacter pylori [H. pylori] as the cause of diseases classified elsewhere

== ENCOUNTER 2024-04-03 08:05 | Outpatient (REF) | payer OTHER, SELFPAY ==
[2024-04-05 10:58] LABS: H Pylori Breath Test Negative (Negative)
== END 2024-04-03 08:06 | disposition home or self-care (01) ==
LOC: HO.LNP 08:05
PROVIDERS: PCP Internal Medicine; Visit Provider Internal Medicine Gastroenterology
DX: K29.70 Gastritis, unspecified, without bleeding (principal); B96.81 Helicobacter pylori [H. pylori] as the cause of diseases classified elsewhere
CPT/HCPCS: 83013; 99211

== ENCOUNTER 2024-04-14 10:34 | Outpatient (AMB) | payer OTHER, SELFPAY ==
[2024-04-14 10:37] VITALS: BP 118/76; PULSE 82; O2SAT 96; BMI 35.3
--- NOTE | 2024-04-14 10:37 | MHC.PC.OV ---
Vital Signs 04/14/24 10:37 Height 6 ft Weight 260 lb BMI 35.3 BP 118/76 Blood Pressure Location Rt brachial Position Sitting Pulse 82 Pulse Source Pulse Oximeter Pulse Oximetry (%) 96 Oxygen Delivery Method Room Air Intake Visit Reasons: 3 month follow up Intake Note: Pt is here today for 3 months follow up visit. Allergies olmesartan Adverse Reaction (Intermediate, Verified 04/14/24 10:41) Constipation Tobacco use date assessed: 04/14/24 Dental Screening Dental Screen Date: 09/30/23 HPI 3 month follow up HPI Details Pt presents for f/u HTN, stable on lisinopril and metoprolol. Patient was treated for H pylori gastritis. He stopped taking iron supplements for chronic anemia and has CBC monitor by GI. Patient complains of chronic insomnia but denies anxiety or depression [facility] Medical History (Updated 04/14/24 @ 11:22 by Katja Olvera MD) HTN (hypertension) Annual physical exam DJD (degenerative joint disease), lumbar Insomnia Obesity Normal colonoscopy Palpitations Diabetes Hyperlipidemia STEPH (obstructive sleep apnea) Anemia GERD (gastroesophageal reflux disease) SVT (supraventricular tachycardia) Surgical History (Updated 04/14/24 @ 11:22 by Katja Olvera MD) H/O endoscopy H/O colonoscopy Lipoma of back Family History Father Throat cancer Mother No problems noted. Maternal Grandmother No problems noted. Maternal Grandfather No problems noted. Paternal Grandmother No problems noted. Paternal Grandfather No problems noted. Brother History of open heart surgery Social History Household Members: None Housing: Apartment Do you presently have visiting nurse or other home services: No Alcohol intake: unknown Comment: pt refuses bed alarm, high falls interventions except socks and signage. Patient Tobacco Use Status: Never used Tobacco e-Cigarette/Vaping Use: Never Used Second Hand Smoke Exposure: No service: No Current occupational status: employed Cognitive needs: No Hearing needs: No Vision needs: Yes Questionnaire PHQ-9 Over the last 2 weeks, how often have you been bothered by any of the following problems? 3. Trouble falling or staying asleep, or sleeping too much: several days 5. Poor appetite or overeating: not at all 6. Feeling bad about yourself - or that you are a failure or have let yourself or your family down: not at all 7. Trouble concentrating on things, such as reading the newspaper or watching television: not at all Source: Developed by Drs. Manoj Hernandez, Corey Car and colleagues, with an educational chas from [employer]. Thrive Questionnaire Date Thrive assessed: 08/02/23 AMBER-7 AMB Questionnaire AMBER-7 Date AMBER - 7 assessed: 08/02/23 Source: Developed by Drs. Manoj Hernandez, Natali Alanis, Corey Mike and colleagues, with an educational chas from [employer]. Review of Systems Const All systems reviewed & are unremarkable except as noted in HPI and below Reports no additional complaints Eyes Reports no additional complaints ENT Reports no additional complaints Card Reports no additional complaints Resp Reports no additional complaints GI Reports no additional complaints Physical exam (Primary Care) Vital Signs: Last Vital Signs Pulse 82 04/14/24 10:37 BP 118/76 04/14/24 10:37 Pulse Ox 96 04/14/24 10:37 Oxygen Delivery Method Room Air 04/14/24 10:37 BMI result Body Mass Index 35.3 Tobacco/Smoking Status: Tobacco use Status Tobacco use date assessed 04/14/24 04/14/24 10:42 Patient Tobacco Use Status Never used Tobacco 04/14/24 10:42 e-Cigarette/Vaping Use Never Used 04/14/24 10:39 Thrive Assessment: Date of Thrive Assessment Date Thrive assessed 08/02/23 04/14/24 10:39 Const General: no acute distress HENMT Head: Yes normal to inspection Ears: hearing grossly normal bilaterally General nose exam: Normal external nose present Face and sinus: Yes normal facial exam Eyes General: appearance normal, both eyes and all related structures Neck Neck: Yes supple Resp Effort & Inspection: normal respiratory effort Auscultation: clear to auscultation bilaterally Cardio Rhythm: regular rhythm Heart sounds: S1 normal heart sound present and S2 normal heart sound present GI Inspection: Yes normal to inspection Palpation (GI): Soft to palpation Percussion: Yes normal to percussion Auscultation: normal bowel sounds Results AMB Hemoglobin A1c AMB Hemoglobin A1c 6.5 % Last Edit by RICHARD Shine on 04/14/24 10:55 Results Reviewed Results Reviewed: Laboratory Last Values Hgb A1c (Clinic) 6.5 % (4.0-6.0) H 04/14/24 10:46 Coding Level of Care Code Est Pt Level 4 (15287) Diagnoses Anemia D64.9 Diabetes E11.9 STEPH (obstructive sleep apnea) G47.33 Hyperlipidemia E78.5 Obesity E66.9 Assessment & Plan Assessment & Plan (1) Anemia: Comment: Iron def, s/p H pylori tx 01/2024, EGD and colonoscopy (1 TA polyp) 08/2023 Code(s): D64.9 - Anemia, unspecified Category: Medical Plan: Monitor CBC off iron supplement (2) Diabetes: Comment: A1C 6.5 04/23, patient declined medications will try ADA diet weight lost and increase exercise Code(s): E11.9 - Type 2 diabetes mellitus without complications Category: Medical Plan: ADA diet increase exercise weight loss discussed with the patient. He declined medications. Patient will follow-up in 3 months with a fasting labs including A1c (3) STEPH (obstructive sleep apnea): Comment: on Cpap (sleep study 2013) Code(s): G47.33 - Obstructive sleep apnea (adult) (pediatric) Category: Medical Plan: Continue Cpap (4) Hyperlipidemia: Code(s): E78.5 - Hyperlipidemia, unspecified Category: Medical Plan: Low-cholesterol diet increase physical activity weight loss discussed with the patient. Follow-up in 3 months with a fasting labs before (5) Obesity: Code(s): E66.9 - Obesity, unspecified Category: Medical Plan: Decreasing caloric intake increasing physical activity weight loss discussed with the patient Orders: Orders Hemoglobin A1c 3 Months D64.9 - Anemia, unspecified, E11.9 - Type 2 diabetes mellitus without complications IRON PROFILE 3 Months D64.9 - Anemia, unspecified, E11.9 - Type 2 diabetes mellitus without complications Lipid Panel 3 Months D64.9 - Anemia, unspecified, E11.9 - Type 2 diabetes mellitus without complications Microalbumin, Random (w Creat) 3 Months D64.9 - Anemia, unspecified, E11.9 - Type 2 diabetes mellitus without complications AMB Hemoglobin A1c Today Z13.9 - Encounter for screening, unspecified Comprehensive [place]. Panel Fast 3 Months D64.9 - Anemia, unspecified, E11.9 - Type 2 diabetes mellitus without complications Complete Blood Count Auto Diff 3 Months D64.9 - Anemia, unspecified, E11.9 - Type 2 diabetes mellitus without complications Medications: Discontinued ferrous sulfate Discontinued Reason: Doctor's Order 324 mg PO DAILY 90 days 90 tabs 1RF
== END 2024-04-14 11:15 | disposition home or self-care (01) ==
PROVIDERS: PCP Internal Medicine; Visit Provider Internal Medicine
DX: E11.69 Type 2 diabetes mellitus with other specified complication (principal); E66.812 Obesity, class 2; E78.5 Hyperlipidemia, unspecified; Z68.35 Body mass index [BMI] 35.0-35.9, adult; D64.9 Anemia, unspecified; G47.33 Obstructive sleep apnea (adult) (pediatric)

== ENCOUNTER → 2024-04-14 10:34 | Outpatient (BNVA) | payer OTHER, SELFPAY | PROVIDERS: PCP Internal Medicine; Visit Provider Internal Medicine | DX: D64.9 Anemia, unspecified (principal); E11.9 Type 2 diabetes mellitus without complications; G47.33 Obstructive sleep apnea (adult) (pediatric); E78.5 Hyperlipidemia, unspecified; E66.9 Obesity, unspecified | CPT/HCPCS: 83036; 99212 ==

== ENCOUNTER 2024-07-20 09:15 | Outpatient (REF) | payer OTHER, SELFPAY ==
[2024-07-20 09:58] LABS: MANUAL DIFF FLAG NO
[2024-07-20 10:06] LABS: Basophils Absolute Auto 0.1 X10*3/uL (0.0-0.2); Basophils Percent Auto 0.5 % (0-2); Eosinophils Absolute Auto 0.3 X10*3/uL (0.0-0.4); Eosinophils Percent Auto 2.6 % (0-4); Hematocrit 41.1 % (42.0-52.0); Hemoglobin 13.3 g/dl (14.0-18.0); Imm Gran Abs Auto 0.03 X10*3/uL (0.00-0.03); Imm Gran Pct Auto 0.3 % (0.0-0.4); Lymphocytes Absolute Auto 1.6 X10*3/uL (1.2-4.9); Lymphocytes Percent Auto 15.7 % (20-40); Mean Corpuscular HGB Conc 32.4 g/dl (31.0-36.0); Mean Corpuscular Hemoglobin 28.8 pg (27.0-33.0); Mean Platelet Volume 9.4 fL (9.4-12.4); Monocytes Absolute Auto 0.7 X10*3/uL (0.1-1.2); Monocytes Percent Auto 7.2 % (2-11); Neutrophils Absolute Auto 7.4 x10*3/uL (2.0-8.3); Neutrophils Percent Auto 73.7 % (45-73); Platelet Count 389 X10*3/uL (160-400); Red Blood Count 4.62 X10*6/uL (4.60-5.80); Red Cell Distribution Width 13.3 % (11.0-16.0)
[2024-07-20 10:11] LABS: Estimated Average Glucose 137 mg/dL; Hemoglobin A1C 162.4692 umol/L; Hemoglobin A1c % 6.4 % (<6.0); Total Hemoglobin (HGBA1C) 3527.4142 umol/L
[2024-07-20 10:46] LABS: Alanine Aminotransferase 50 U/L (0-40); Albumin Level 3.9 g/dL (3.5-5.0); Alkaline Phosphatase 104 U/L (39-117); Anion Gap 9 (12-20); Aspartate Amino Transferase 30 U/L (5-37); Bilirubin Total 0.3 mg/dL (0.0-1.0); Blood Urea Nitrogen 15 mg/dL (9-16); Calcium 8.5 mg/dL (8.4-10.2); Carbon Dioxide 27 mmol/L (22-29); Chloride 108 mmol/L (96-108); Cholesterol 186 mg/dL (<200); Estimated Glomerular Filt Rate > 60; Glucose Fasting 125 mg/dL (60-99); HDL Cholesterol 40 mg/dL (>40); Iron 51 mcg/dL (45-160); LDL Cholesterol Calculated 121 mg/dL (<100); Percent Iron Saturation 14 % (15-50); Potassium 4.6 mmol/L (3.3-5.1); Sodium 139 mmol/L (135-145); Total Iron Binding Capacity 356 mcg/dL (228-428); Total Protein 7.4 g/dL (6.5-8.0); Triglycerides 129 mg/dL (<150); Unsaturated Iron Binding 305 ug/dL
[2024-07-20 10:49] LABS: Creatinine Urine 144.83 mg/dL; Microalbum/Creatinine Ratio Ur 6.2 ug/mg cr (<30)
== END 2024-07-20 09:16 | disposition home or self-care (01) ==
LOC: HO.HMGCLDS 09:15
PROVIDERS: PCP Internal Medicine; Visit Provider Internal Medicine
DX: E11.9 Type 2 diabetes mellitus without complications (principal); D64.9 Anemia, unspecified
CPT/HCPCS: 36415; 80053; 80061; 82043; 82570; 83036; 83540; 85025

== ENCOUNTER 2024-07-21 08:54 | Outpatient (AMB) | payer OTHER, SELFPAY ==
[2024-07-21 08:57] VITALS: BP 114/70; PULSE 94; O2SAT 96; BMI 35.1
--- NOTE | 2024-07-21 08:57 | MHC.PC.OV ---
Vital Signs 07/21/24 08:57 Height 6 ft Weight 259 lb BMI 35.1 BP 114/70 Blood Pressure Location Rt brachial Position Sitting Pulse 94 Pulse Source Pulse Oximeter Pulse Oximetry (%) 96 Oxygen Delivery Method Room Air Intake Visit Reasons: 3 months follow up on DM Intake Note: Pt is here today for 3 month follow up visit on DM. Allergies olmesartan Adverse Reaction (Intermediate, Verified 07/21/24 08:59) Constipation Tobacco use date assessed: 07/21/24 Dental Screening Dental Screen Date: 07/21/24 Did you have a dental visit in the last 12 months?: Yes Did you have a dental problem in the last 6 months where you did not have access to dental care?: No Was dental information given to patient?: Patient has dentist HPI 3 months follow up on DM HPI Details Pt presents for f/u of HTN, stable on meds. Pt has been following ADA diet for hyperglycemia. [facility] Medical History HTN (hypertension) Annual physical exam DJD (degenerative joint disease), lumbar Insomnia Obesity Normal colonoscopy Palpitations Diabetes Hyperlipidemia STEPH (obstructive sleep apnea) Anemia GERD (gastroesophageal reflux disease) SVT (supraventricular tachycardia) Surgical History H/O endoscopy H/O colonoscopy Lipoma of back Family History Father Throat cancer Mother No problems noted. Maternal Grandmother No problems noted. Maternal Grandfather No problems noted. Paternal Grandmother No problems noted. Paternal Grandfather No problems noted. Brother History of open heart surgery Social History Household Members: None Housing: Apartment Do you presently have visiting nurse or other home services: No Alcohol intake: unknown Comment: pt refuses bed alarm, high falls interventions except socks and signage. Patient Tobacco Use Status: Never used Tobacco e-Cigarette/Vaping Use: Never Used Second Hand Smoke Exposure: No service: No Current occupational status: employed Cognitive needs: No Hearing needs: No Vision needs: Yes Questionnaire PHQ-9 Over the last 2 weeks, how often have you been bothered by any of the following problems? 1. Little interest or pleasure in doing things: not at all 2. Feeling down, depressed, or hopeless: not at all 3. Trouble falling or staying asleep, or sleeping too much: not at all 4. Feeling tired or having little energy: not at all 5. Poor appetite or overeating: not at all 6. Feeling bad about yourself - or that you are a failure or have let yourself or your family down: not at all 7. Trouble concentrating on things, such as reading the newspaper or watching television: not at all 8. Moving or speaking so slowly that other people could have noticed. Or the opposite - being so fidgety or restless that you have been moving around a lot more than usual: not at all 9. Thoughts that you would be better off or of hurting yourself in some way: not at all Total score: 0 Depression Screening Interpretation: Negative Depression Screening Done: Yes 40173 - PHQ-9 Billing: Yes Source: Developed by Drs. Manoj Hernandez, Natali Alanis, Corey Mike and colleagues, with an educational chas from [employer]. Thrive Questionnaire Date Thrive assessed: 07/21/24 I am a: Patient What is your living situation today?: I have a steady place to live Within the past 12 months, did the food you bought not last and you didn't have the money to get more?: Never true Within the past 12 months, did you worry whether your food would run out before you got money to buy more?: Never true Do you have trouble paying for medicines?: No Do you have trouble getting transportation to medical appointments?: No Do you have trouble paying your heating and electricity bill?: No Do you have trouble taking care of your child, family member or friend?: No Do you have trouble with day-to-day activities such as bathing, preparing meals, shopping, managing finances, etc.?: No Are you currently unemployed and looking for a job?: No Are you interested in more education?: No Please select the resources that you would like help with: None THRIVE Score: 0 AUDIT C Alcohol Use Questionnaire (AUDIT-C) 1. How often do you have a drink containing alcohol?: Monthly or less 2. How many drinks containing alcohol do you have on a typical day when you are drinking?: 1 or 2 3. How often do you have six or more drinks on one occasion?: Never Total Score: 1 AMBER-7 AMB Questionnaire AMBER-7 Date AMBER - 7 assessed: 07/21/24 Feeling nervous, anxious, or on edge: 0 = Not at all Not being able to stop or control worryin = Not at all Worrying too much about different things: 0 = Not at all Trouble relaxin = Not at all Being so restless that it is hard to sit still: 0 = Not at all Becoming easily annoyed or irritable: 0 = Not at all Feeling afraid as if something awful might happen: 0 = Not at all Total AMBER-7 score (0-4 normal; 5-9 mild; 10-14 moderate; 15-21 severe): 0 Source: Developed by Drs. Manoj Hernandez, Natali Alanis, Corey Mike and colleagues, with an educational chas from [employer]. AMBER-7 Assessment Billing AMBER-7 Assessment Tool: AMBER-7 Assessment 29098 Review of Systems Const All systems reviewed & are unremarkable except as noted in HPI and below Eyes Reports no additional complaints ENT Reports no additional complaints Card Reports no additional complaints Resp Reports no additional complaints GI Reports no additional complaints Reports no additional complaints Physical exam (Primary Care) Vital Signs: Last Vital Signs Pulse 94 07/21/24 08:57 BP 114/70 07/21/24 08:57 Pulse Ox 96 07/21/24 08:57 Oxygen Delivery Method Room Air 07/21/24 08:57 BMI result Body Mass Index 35.1 Tobacco/Smoking Status: Tobacco use Status Tobacco use date assessed 07/21/24 07/21/24 09:02 Patient Tobacco Use Status Never used Tobacco 07/21/24 08:57 e-Cigarette/Vaping Use Never Used 07/21/24 08:57 PHQ-9: PHQ-9 Score PHQ-9: Total score 0 07/21/24 09:02 Depression Screening Interpretation: Negative Thrive Assessment: Date of Thrive Assessment Date Thrive assessed 07/21/24 07/21/24 09:02 Const General: no acute distress HENMT Head: Yes normal to inspection Ears: hearing grossly normal bilaterally General nose exam: Normal external nose present Face and sinus: Yes normal facial exam Mouth: Normal oral and palatal mucosa present Eyes General: appearance normal, both eyes and all related structures Neck Neck: Yes no lymphadenopathy and Yes supple Resp Effort & Inspection: normal respiratory effort Auscultation: clear to auscultation bilaterally Cardio Rhythm: regular rhythm Heart sounds: S1 normal heart sound present and S2 normal heart sound present GI Inspection: Yes normal to inspection Palpation (GI): Soft to palpation Percussion: Yes normal to percussion Auscultation: normal bowel sounds Coding Level of Care Code Est Pt Level 4 (55892) Diagnoses SVT (supraventricular tachycardia) I47.1 Diabetes E11.9 HTN (hypertension) I10 Iron deficiency anemia D50.9 Hyperlipidemia E78.5 Additional Codes AMBER-7 Assessment Billing - AMBER-7 Assessment Tool: AMBER-7 Assessment 58151 ([id number]) PHQ-9 - 55470 - PHQ-9 Billing: Yes ([id number]) Assessment & Plan Assessment & Plan (1) SVT (supraventricular tachycardia): Comment: on Metoprolol, Echo 08/2020 normal Code(s): I47.1 - Supraventricular tachycardia Category: Medical Plan: Controlled on metoprolol (2) Diabetes: Comment: A1C 6.5 04/23, patient declined medications will try ADA diet weight loss and increase exercise Code(s): E11.9 - Type 2 diabetes mellitus without complications Category: Medical Plan: A1c is 6.4, ADA diet increase exercise weight loss discussed with the patient. He declined training medications (3) HTN (hypertension): Code(s): I10 - Essential (primary) hypertension Category: Medical Plan: Continue current medications (4) Iron deficiency anemia: Comment: Off iron supplement, monitor CBC and iron level Code(s): D50.9 - Iron deficiency anemia, unspecified Category: Medical Plan: Monitor CBC (5) Hyperlipidemia: Comment: diet controlled Code(s): E78.5 - Hyperlipidemia, unspecified Category: Medical Plan: Continue low-cholesterol diet Orders: Orders Comprehensive [place]. Panel Fast 7 Months D50.9 - Iron deficiency anemia, unspecified, E11.9 - Type 2 diabetes mellitus without complications, E78.5 - Hyperlipidemia, unspecified, I10 - Essential (primary) hypertension, I47.1 - Supraventricular tachycardia, Z00.00 - Encounter for general adult medical examination without abnormal findings IRON PROFILE 7 Months D50.9 - Iron deficiency anemia, unspecified, E11.9 - Type 2 diabetes mellitus without complications, E78.5 - Hyperlipidemia, unspecified, I10 - Essential (primary) hypertension, I47.1 - Supraventricular tachycardia, Z00.00 - Encounter for general adult medical examination without abnormal findings PSA,Total (Free>4and<10) 7 Months D50.9 - Iron deficiency anemia, unspecified, E11.9 - Type 2 diabetes mellitus without complications, E78.5 - Hyperlipidemia, unspecified, I10 - Essential (primary) hypertension, I47.1 - Supraventricular tachycardia, Z00.00 - Encounter for general adult medical examination without abnormal findings Hemoglobin A1c 7 Months D50.9 - Iron deficiency anemia, unspecified, E11.9 - Type 2 diabetes mellitus without complications, E78.5 - Hyperlipidemia, unspecified, I10 - Essential (primary) hypertension, I47.1 - Supraventricular tachycardia, Z00.00 - Encounter for general adult medical examination without abnormal findings Lipid Panel 7 Months D50.9 - Iron deficiency anemia, unspecified, E11.9 - Type 2 diabetes mellitus without complications, E78.5 - Hyperlipidemia, unspecified, I10 - Essential (primary) hypertension, I47.1 - Supraventricular tachycardia, Z00.00 - Encounter for general adult medical examination without abnormal findings Complete Blood Count Auto Diff 7 Months D50.9 - Iron deficiency anemia, unspecified, E11.9 - Type 2 diabetes mellitus without complications, E78.5 - Hyperlipidemia, unspecified, I10 - Essential (primary) hypertension, I47.1 - Supraventricular tachycardia, Z00.00 - Encounter for general adult medical examination without abnormal findings Microalbumin, Random (w Creat) 7 Months D50.9 - Iron deficiency anemia, unspecified, E11.9 - Type 2 diabetes mellitus without complications, E78.5 - Hyperlipidemia, unspecified, I10 - Essential (primary) hypertension, I47.1 - Supraventricular tachycardia, Z00.00 - Encounter for general adult medical examination without abnormal findings UA w Microscopic 7 Months D50.9 - Iron deficiency anemia, unspecified, E11.9 - Type 2 diabetes mellitus without complications, E78.5 - Hyperlipidemia, unspecified, I10 - Essential (primary) hypertension, I47.1 - Supraventricular tachycardia, Z00.00 - Encounter for general adult medical examination without abnormal findings
== END 2024-07-21 09:48 | disposition home or self-care (01) ==
PROVIDERS: PCP Internal Medicine; Visit Provider Internal Medicine
DX: I47.10 Supraventricular tachycardia, unspecified (principal); E11.9 Type 2 diabetes mellitus without complications; I10 Essential (primary) hypertension; D50.9 Iron deficiency anemia, unspecified; E78.5 Hyperlipidemia, unspecified

== ENCOUNTER → 2024-07-21 08:54 | Outpatient (BNVA) | payer OTHER, SELFPAY | PROVIDERS: PCP Internal Medicine; Visit Provider Internal Medicine | DX: I47.10 Supraventricular tachycardia, unspecified (principal); E11.9 Type 2 diabetes mellitus without complications; I10 Essential (primary) hypertension; D50.9 Iron deficiency anemia, unspecified; E78.5 Hyperlipidemia, unspecified | CPT/HCPCS: 96127; 99212 ==

== ENCOUNTER → 2024-07-23 11:44 | Outpatient (AMB) | payer OTHER, SELFPAY ==
--- NOTE | 2024-07-23 11:46 | MHC.OFFVIS ---
Vital Signs 07/23/24 11:47 Height 6 ft Weight 259 lb BMI 35.1 BP 142/64 H Blood Pressure Location Lt brachial Position Sitting Pulse 89 Intake Visit Reasons: 3 months f/u Intake Note: Patient 3 month follow up Helicobacter pylori gastritis and lab results. Patient cc: rectal bleeding due to his hemorrhoids on and off. Denies any other GI issues for today. Digital Developer Required: No Digital Developer Services: Digital Developer Present (NANCY Scott ) Digital Developer Name: NANCY Scott Accompanied by: Self / Same As Patient Allergies olmesartan Adverse Reaction (Intermediate, Verified 07/23/24 11:45) Constipation Medication List - Last Reconciled 07/23/24 by Donna Recinos MD blood sugar diagnostic As directed blood sugar diagnostic (FreeStyle Lite Strips) 1 qd blood-glucose meter (FreeStyle [place] kit) As directed furosemide 20 mg PO DAILY hydrocortisone 2.5% [address] BID-QID PRN 30 days lancets As directed lisinopril 10 mg PO DAILY metoprolol succinate ER 50 mg PO DAILY omeprazole 40 mg PO DAILY psyllium husk (Fiber (psyllium husk)) 0.52 grams PO BID PRN 60 days HPI HPI 3 months f/u: Details: GI clinic visit for this 64 YM for FU of iron-deficiency anemia. TODAY'S VISIT: Patient cc: rectal bleeding due to his hemorrhoids on and off. Notes intermittent rectal bleeding once a month and last 2-3 days Using rectal cream Last episode of rectal bleeding was 2 weeks ago Has episodes twice a month - concerned about recurrent anemia. Blood is bright red and notes blood in the toilet bowl - separate and sometimes mixed with the stool. Has bleeding after he has a BM. Denies abdominal. Notes rectal pain after a BM. Has a BM daily Takes an OTC medication daily for constipation (stool softener) PAST VISITS: Patient cc: burping a lot and acid reflex med is helping him. Pt is accompanied by his daughter who interpreted for the patient Notes a lot of burping and gas - if he eats fast and on the run. Heartburn is controlled with medication. Notes dark stools when he takes his iron pills Pt gives a hx of anemia several years ago, was offered blood transfusion and declined and at some point in his life was taking iron pills. Patient admits to having a two EGDs and a colon[place] in the past [place] [facility]05/[place] in [place] (Not [place]). (he thinks he may have had a hernia or an ulcer) Pt has sleep apnea and was on a CPAP machine and lost it during a move. Pt admits to drinking beer on weekends and denies smoking. Family hx: dad with throat cancer (he was a smoker) and a sister had colon polyps removed and is positive for BRCA gene LABS [place] [facility] : Reviewed ENDOSCOPIC STUDIES: 09/10/23 EGD AND COLON SHOWED:Endoscopy Findings: ESOPHAGUS: A large hiatal hernia 35 to 40 cms. No esophagitis, Feliciano's or Kennedy's ulcers noted in the hiatal hernia sac. STOMACH: Normal gastric mucosa - biopsies were obtained from the antrum to check for H pylori. Grade 4 flap valve on retroflexed examination of the cardia. DUODENUM: Normal - biopsied to check for celiac sprue Colonoscopy Findings: One small tubular adenoma was removed Moderate diverticulosis seen in the left colon Moderate hemorrhoids on retroflexed exam. No clear source found for KEITH - pt may have Kennedy's ulcers in the Hiatal hernia sac which have healed with PPI Plan: Repeat Colonoscopy in 5 years. BIOPSIES SHOWED: A. Small bowel, biopsy: Small bowel mucosa with preserved villi and no specific change. B. Gastric antrum, biopsy: Chronic Helicobacter gastritis with mild activity; negative for intestinal metaplasia and dysplasia. C. Colon, ascending, polyp: Tubular adenoma; negative for high-grade dysplasia and carcinoma PAST GI HISTORY BY REVIEW OF MEDICAL RECORDS: [place] was [place] [facility] [place] for iron-deficiency anemia: Reason for consult: Iron deficiency anemia 63 YM with hypertension, anemia, GERD, obesity, STEPH (not using CPAP) and hyperlipidemia seen at [facility] [place] on 07/22/23 after his routine lab workup revealed microcytic hypochromic anemia. Hx obtained with the help of an [facility] [place] invasive physician. Patient complained of feeling fatigued with SOB on exertion over the past several weeks. He denies abdominal pain, heartburn, dysphagia, headaches, palpitations, dizziness, chest pain, cough, fever or chills. He notes that he vomits after taking onions or garlic. Pt admits to having intermittent black stools since May, 2023 and none over the past 2-3 weeks. Pt admits to intermittent constipation and takes some medication (does not recall the name) prn. He admits to taking NSAIDs very occasionally as needed and denies taking aspirin or any blood thinner. In the ED, labs showed anemia with H & H of 6.6 and 25.4 with microcytosis, hypochromia and elevated RDW, iron studies cw with KEITH. Folate and vitamin B12 are normal. Troponin is negative. ED tx: Two units of PRBCs ordered and patient was admitted for further management [facility] Medical History (Updated 07/23/24 @ 12:21 by Donna Recinos MD) HTN (hypertension) Annual physical exam DJD (degenerative joint disease), lumbar Insomnia Obesity Normal colonoscopy Palpitations Diabetes Hyperlipidemia STEPH (obstructive sleep apnea) Anemia GERD (gastroesophageal reflux disease) SVT (supraventricular tachycardia) Surgical History H/O endoscopy H/O colonoscopy Lipoma of back Family History Father Throat cancer Mother No problems noted. Maternal Grandmother No problems noted. Maternal Grandfather No problems noted. Paternal Grandmother No problems noted. Paternal Grandfather No problems noted. Brother History of open heart surgery Social History Household Members: None Housing: Apartment Do you presently have visiting nurse or other home services: No Alcohol intake: unknown Comment: pt refuses bed alarm, high falls interventions except socks and signage. Patient Tobacco Use Status: Never used Tobacco e-Cigarette/Vaping Use: Never Used Second Hand Smoke Exposure: No service: No Current occupational status: employed Cognitive needs: No Hearing needs: No Vision needs: Yes Review of Systems Const All systems reviewed & are unremarkable except as noted in HPI and below Physical Exam Vital Signs: Last Vital Signs Pulse 89 07/23/24 11:47 BP 142/64 H 07/23/24 11:47 BMI result Body Mass Index 35.1 Const General: no acute distress Nutritional Appearance: obese Orientation/consciousness: patient oriented x3 Limitations: language barrier HEENT Head: Yes normal to inspection Ears: hearing grossly normal bilaterally Eyes Sclerae: sclerae normal Pupils: Equal, round and reactive pupils present Neck Neck: Yes normal visual inspection Chest Chest palpation & inspection: normal inspection of the chest Resp Effort & Inspection: normal respiratory effort Auscultation: clear to auscultation bilaterally Cardio Palpation: normal PMI Rate: regular rate Rhythm: regular rhythm Heart sounds: S1 normal heart sound present, S2 normal heart sound present and no murmurs GI Palpation (GI): Soft to palpation, nontender and No hepatosplenomegaly present Auscultation: normal bowel sounds Rectal Exam - Male: Yes deferred Skin General skin exam: no rashes or lesions noted Neuro General: patient oriented x3, gait normal and moves all extremities Cranial nerves: Yes Equal, round and reactive pupils present Psych Appearance: grossly normal Mental Status: mental status grossly normal Assessment & Plan Assessment & Plan (1) Hemorrhoids, internal, with bleeding: Code(s): K64.8 - Other hemorrhoids Category: Medical (2) History of colon polyps: Comment: 09/10/23 colonoscopy was performed in 1 small tubular adenoma was removed Repeat colonoscopy advised in 5 years. Code(s): Z86.010 - Personal history of colon polyps Category: Medical (3) Helicobacter pylori gastritis: Comment: Hospitalized for GI bleed 07/24, f/u [place] [facility] Code(s): K29.70 - Gastritis, unspecified, without bleeding; B96.81 - Helicobacter pylori [H. pylori] as the cause of diseases classified elsewhere Category: Medical (4) Iron deficiency anemia: Comment: Off iron supplement, monitor CBC and iron level Code(s): D50.9 - Iron deficiency anemia, unspecified Category: Medical (5) Elevated LFTs: Code(s): R79.89 - Other specified abnormal findings of blood chemistry Category: Medical Plan 64 year old [place]ander-speaking male with hypertension, anemia, GERD, obesity, STEPH (not using CPAP) and hyperlipidemia hospitalized [place] [facility] [place]22[place] to 07/26/23 with microcytic hypochromic anemia. Patient complained of feeling fatigued with SOB on exertion over the past several weeks. Pt admited to having intermittent constipation and black stools since May, 2023 and none since. He admited to taking NSAIDs very occasionally as needed and denies taking aspirin or any blood thinner. In the ED, labs showed anemia with H & H of 6.6 and 25.4 with microcytosis, hypochromia and elevated RDW, iron studies cw with KEITH. 09/10/23 EGD showed a large hiatal hernia and gastritis. Gastric biopsies are positive for Helicobacter pylori. Same day colonoscopy - 1 small tubular adenoma was removed Repeat colonoscopy advised in 5 years. 09/26/23 patient was prescribed clarithromycin, amoxicillin and omeprazole times 14 days for H pylori gastritis. Repeat CBC for follow-up of iron-deficiency anemia 03/19/24 Last episode of rectal bleeding was 2 weeks ago Has episodes twice a month - concerned about recurrent anemia. Blood is bright red and notes blood in the toilet bowl - separate and sometimes mixed with the stool. Hydrocortisone cream and fiber supplements for hemorrhoids. Pt advised to hold Omeprazole x 2 weeks and FU appt scheduled with GI MA for H pylori breath test. Patient was advised to inform the MA if he had continued bleeding on follow-up visit in 2 weeks. Bleeding continues he will be referred to surgery to be evaluated for band ligation or hemorrhoidectomy Repeat CBC - H & H was stable without anemia 07/23/24 Notes intermittent rectal bleeding once a month and last 2-3 days Using rectal cream PT referred to Dr Bonilla for evaluation of rectal bleeding related to hemorrhoids FU in 4 monhs Orders: Orders US abdomen mac w elastography 07/23/24 R79.89 - Other specified abnormal findings of blood chemistry Referrals General Surgery Referral K64.8 - Other hemorrhoids Coding Level of Care Code Est Pt Level 3 (85909) Diagnoses Hemorrhoids, internal, with bleeding K64.8 History of colon polyps Z86.010 Helicobacter pylori gastritis K29.70; B96.81 Iron deficiency anemia D50.9 Elevated LFTs R79.89 Time Spent (min) 19
[2024-07-23 11:47] VITALS: BP 142/64; PULSE 89; BMI 35.1
== END ==
PROVIDERS: PCP Internal Medicine; Visit Provider Internal Medicine Gastroenterology
DX: K64.8 Other hemorrhoids (principal); Z86.0100 Personal history of colon polyps, unspecified; K29.70 Gastritis, unspecified, without bleeding; B96.81 Helicobacter pylori [H. pylori] as the cause of diseases classified elsewhere; D50.9 Iron deficiency anemia, unspecified; R79.89 Other specified abnormal findings of blood chemistry
CPT/HCPCS: 99213

== ENCOUNTER → 2024-07-23 11:44 | Outpatient (BNVA) | payer OTHER, SELFPAY | PROVIDERS: PCP Internal Medicine; Visit Provider Internal Medicine Gastroenterology | DX: K29.70 Gastritis, unspecified, without bleeding (principal); B96.81 Helicobacter pylori [H. pylori] as the cause of diseases classified elsewhere; K64.8 Other hemorrhoids; D50.9 Iron deficiency anemia, unspecified; R79.89 Other specified abnormal findings of blood chemistry; Z86.0100 Personal history of colon polyps, unspecified | CPT/HCPCS: 99212 ==

== ENCOUNTER → 2024-08-05 08:36 | Outpatient (BNV) | payer OTHER, SELFPAY | PROVIDERS: PCP Internal Medicine; Visit Provider Radiology Diagnostic Radiology | DX: R74.01 Elevation of levels of liver transaminase levels (principal) | CPT/HCPCS: 76705 ==

== ENCOUNTER 2024-09-17 08:50 | Outpatient (AMB) | payer OTHER, SELFPAY ==
--- NOTE | 2024-09-17 08:51 | MHC.OFFVIS ---
Vital Signs 09/17/24 08:58 Height 6 ft Weight 262 lb BMI 35.5 BP 127/65 Blood Pressure Location Rt brachial Position Sitting Pulse 81 Intake Visit Reasons: hemorrhoids Intake Note: This patient presents for hemorrhoids. Pt c/o; Onset 1 month, reports his PCP prescribed cream for the area and this has helped,reports rectal bleeding has stopped, reports constipation. Manufacturing Lab Technician Required: Yes Manufacturing Lab Technician Language: Visual Merchandising Coordinator Services: Manufacturing Lab Technician Present (Nilda) Information Interpreted: non-clinical & clinical Accompanied by: Self / Same As Patient Allergies olmesartan Adverse Reaction (Intermediate, Verified 09/17/24 09:03) Constipation Medication List - Last Reconciled 09/17/24 by [place] Bonilla MD blood sugar diagnostic As directed blood sugar diagnostic (FreeStyle Lite Strips) 1 qd blood-glucose meter (FreeStyle [place] kit) As directed furosemide 20 mg PO DAILY hydrocortisone 2.5% 1 appl [place] BID-QID PRN 30 days lancets As directed lisinopril 10 mg PO DAILY metoprolol succinate ER 50 mg PO DAILY omeprazole 40 mg PO DAILY psyllium husk (Fiber (psyllium husk)) 0.52 grams PO BID PRN 60 days HPI HPI hemorrhoids: Details: 64-year-old male here for hemorrhoid issues. He describes having episodes of bleeding about a month ago for a few days. He says that he had been constipated prior to that He was given a cream by his primary care physician and says that this has helped. He has had no bleeding episodes for several weeks now He denies any pain or discomfort. He is up-to-date with this colonoscopy. He said he had benign polyps removed last year. [facility] Medical History (Updated 09/17/24 @ 09:07 by Washington Bonilla MD) Bleeding hemorrhoids HTN (hypertension) Annual physical exam DJD (degenerative joint disease), lumbar Insomnia Obesity Normal colonoscopy Palpitations Diabetes Hyperlipidemia STEPH (obstructive sleep apnea) Anemia GERD (gastroesophageal reflux disease) SVT (supraventricular tachycardia) Surgical History H/O endoscopy H/O colonoscopy Lipoma of back Family History Father Throat cancer Mother No problems noted. Maternal Grandmother No problems noted. Maternal Grandfather No problems noted. Paternal Grandmother No problems noted. Paternal Grandfather No problems noted. Brother History of open heart surgery Social History Household Members: None Housing: Apartment Do you presently have visiting nurse or other home services: No Alcohol intake: unknown Comment: pt refuses bed alarm, high falls interventions except socks and signage. Patient Tobacco Use Status: Never used Tobacco e-Cigarette/Vaping Use: Never Used Second Hand Smoke Exposure: No service: No Current occupational status: employed Cognitive needs: No Hearing needs: No Vision needs: Yes Review of Systems Const Denies chills and Denies fever(s) Card Denies chest pain, Denies dyspnea and Denies dyspnea on exertion Resp Denies cough, Denies dyspnea and Denies dyspnea on exertion GI Reports hematochezia and Denies change in bowel habits Denies hematuria and Denies difficulty urinating Musc Denies back pain and Denies limited range of motion Neuro Denies focal weakness and Denies convulsions Psych Denies depression and Denies mood swings Physical Exam Const General: comfortable and no acute distress Orientation/consciousness: patient oriented x3 Neck Neck: Yes no lymphadenopathy Resp Auscultation: clear to auscultation bilaterally Cardio Rhythm: regular rhythm GI Other: Rectal exam shows a prominent hemorrhoidal column, external, posteriorly Palpation (GI): Soft to palpation, nontender and no guarding Neuro General: patient oriented x3 Office Procedures Anoscopy He was in kelly-knife position. The anoscope was gently inserted a full examination of the anal canal was done. Had a mixed internal and hemorrhoidal column, prominent, which appears to be posterior. There were no other lesions. There was no fissure or ulceration. There was no healing. There was no induration [id number] Assessment & Plan Assessment & Plan (1) Bleeding hemorrhoids: Code(s): K64.9 - Unspecified hemorrhoids Category: Medical Plan: He has internal and external hemorrhoids, with some bleeding about a month ago. He says that this has since resolved. He says he had been constipated at that time I did explain to him the option of hemorrhoidectomy for severe symptoms. I will prescribe him Colace to less than episodes of hemorrhoids symptoms I did tell him that if he has severe symptoms down the line, he can come back to the office to be re-evaluated He is comfortable with the plan. He is also up-to-date with his colonoscopies. Medications: New docusate sodium (Colace) 100 mg PO BID 60 caps 2RF Coding Level of Care Code New Pt Level 3 (25225) Diagnoses Bleeding hemorrhoids K64.9 CPT Codes Details - CPT: [id number] ([id number])
[2024-09-17 08:58] VITALS: BP 127/65; PULSE 81; BMI 35.5
== END 2024-09-17 09:07 | disposition home or self-care (01) ==
LOC: HO.HGS 08:51
PROVIDERS: PCP Internal Medicine; Visit Provider Surgery
DX: K64.9 Unspecified hemorrhoids (principal)
CPT/HCPCS: 46600; 99203

== ENCOUNTER → 2024-09-17 08:50 | Outpatient (BNVA) | payer OTHER, SELFPAY | PROVIDERS: PCP Internal Medicine; Visit Provider Surgery | DX: D64.9 Anemia, unspecified (principal) | CPT/HCPCS: 46600; 99202 ==

== ENCOUNTER 2025-04-06 08:31 | Outpatient (REF) | payer OTHER, SELFPAY ==
--- OUTSIDE RECORDS SUMMARY | 2025-04-06 09:07 | XMS_ITS | Clinical Summary ---
Author Organization [facility] Address [address] [place] [address] Phone Care Team Providers Care Typing Office Worker Name Role Phone Katja Olvera MD Primary Care Provider [phone] Allergies No known active allergies Medications cholecalciferol (VITAMIN D3) 400 unit tablet Take by mouth daily. Active ferrous sulfate 324 mg (65 mg chenega iron) TbEC Take 324 mg by mouth daily with breakfast. Active metFORMIN (GLUCOPHAGE) 1000 MG tablet Take 1,000 mg by mouth 2 (two) times a day with meals. Active atorvastatin (LIPITOR) 20 MG tablet Take 20 mg by mouth daily. Active zolpidem (AMBIEN) 10 mg tablet Take 10 mg by mouth nightly at bedtime as needed for sleep. Active Social History Tobacco Use Types Packs/Day Years Used Date Smoking Tobacco: Never Smokeless Tobacco: Never Alcohol Use Standard Drinks/Week Comments Yes 30 (1 standard drink = 0.6 oz pu re alcohol) Education Answer Date Recorded Are you interested in more education? Not on abeba e 10/26/2022 Are you concerned about learning? Not on file 10/26/2022 No 10/26/2022 No 10/26/2022 Digital Access Answer Date Recorded No 11/24/2022 No 11/24/2022 No 11/24/2022 Reliable internet access at home? Not on file 11/24/2022 Device with a working camera? Not on file Sex and Gender Information Value Date Recorded Sex Assigned at Not on file Legal Sex Male 9:41 AM EDT Gender Identity Not on file Sexual Orientation Not on file Last Filed Vital Signs Vital Sign Reading Time Taken Comments Blood Pressure 116/93 03/16/2020 2:06 PM EDT Pulse 78 03/16/2020 1:06 PM EDT Temperature - - Respiratory Rate 16 03/16/2020 1:06 PM EDT Oxygen Saturation 95% 03/16/2020 2:08 PM EDT Inhaled Oxygen Concentration - - Weight 114.8 kg (253 lb) 03/11/2020 11:32 AM EDT Height 182.9 cm (6') 03/11/2020 11:32 AM EDT Body Mass Index 34.31 03/11/2020 11:32 AM EDT Plan of Treatment Health Maintenance Due Date Last Done Comments LIPID PANEL 1960 DEPRESSION SCREENING 1974 HEPATITIS C SCREENING 1980 HIV ONE-TIME SCREENING (18-6 5 YEARS) 1980 COLOGUARD 2007 FIT TEST 2007 FOBT 2007 SIGMOIDOSCOPY 2007 VIRTUAL COLONOSCOPY 2007 ZOSTER VACCINES (1 of 2) 2012 PNEUMOCOCCAL VACCINES (50+ years) (2 of 2 - PCV) 11/02/2017 11/02/2016 CREATININE LEVEL 02/21/2021 02/22/2020 INFLUENZA VACCINE (#1) 2025 , 03/27/2016 COVID-19 VACCINE (2 - 2024-2 6 season) 2025 09/29/2020 Adult Td,Tdap Booster 09/14/2025 09/15/2015 COLONOSCOPY 03/16/2030 03/16/2020 COLORECTAL CANCER SCREENING 03/16/2030 RSV VACCINE (1 - 1-dose 75+ series) 2037 SMOKING STATUS SCREENING (On ce After 26 Yrs) Completed 03/16/2020 HEPATITIS A VACCINES Aged Out No long er eligible based on patient's age to complete this topic HIB VACCINES Aged Out No longer eligi ble based on patient's age to complete this topic MENINGOCOCCAL VACCINES (ACWY) Aged Out No longer eligible based on patient's age to complete this topic MENINGOCOCCAL VACCINES (B) Aged Out N o longer eligible based on patient's age to complete this topic Medical Devices Not on file Procedures Procedure Name Priority Date/Time Associated Diagnosis Comments ENDOSCOPY, COLON 03/16/2020 1:25 PM EDT COMPREHENSIVE METABOLIC PANEL Routine 02/22/2020 9:53 AM EDT Gastroesophageal reflux disease, esophagitis presence not specified Abnormal bowel habits Personal history of colonic polyps from Last 3 Months or Most Recently Relevant to Health Maintenance Results * ENDOSCOPY, COLON (03/16/2020 1:25 PM EDT) Narrative Transcriptions Alphonso Gonzales MD - 03/16/2020 1:25 PM EDT Patient Name: Cuong Sr Attending MD:: ALPHONSO GONZALES MD Procedure Date: 03/16/2020 1:25 PM Date of : 1960 Age: 59 Admit Type: Outpatient Gender: Male Room: [place] [address] Referring MD: Katja Olvera MD Exam Type: Colonoscopy Indications: Surveillance: Personal history of adenomatous polypson last colonoscopy > 5 years ago, Last colonoscopy:2013 Medications: Monitored Anesthesia Care Procedure: Informed consent was obtained from the patient after discussion of the indications, limitations, alternatives, benefits, and risks of the procedure. Risks specifically discussed include but are not limited to medication reactions, missed lesions, bleeding, perforation, or the need for emergentsurgery. Throughout the procedure, the patient's bloodpressure, pulse, end-tidal CO2, and oxygen saturations were monitored continuously. The Olympus adult variable colonoscope [id number] #1was introduced through the anus and advanced to thececum, identified by the appendiceal orifice, ileocecalvalve and palpation. The colonoscopy was performed without difficulty. The patient tolerated the procedurewell. The quality of the bowel preparation was good. Complications: No immediate complications. Estimated blood loss:None. Findings: The perianal and digital rectal examinations were normal. Pertinent negatives include normal sphincter tone. Many small-mouthed diverticula were found in the sigmoid colon. Retroflexion in the right colon was performed. The exam was otherwise without abnormality on direct and retroflexion views. Non-bleeding internal hemorrhoids were found during endoscopy. The hemorrhoids were moderate. Impression: - Diverticulosis in the sigmoid colon. - The examination was otherwise normal on direct and retroflexion views. - Non-bleeding internal hemorrhoids. - No specimens collected. Recommendation: - Repeat colonoscopy in 5 years for surveillance. - Use fiber, for example Citrucel, Fibercon, Konsylor Metamucil. ALPHONSO GONZALES MD 03/16/2020 1:55:58 PM This report has been signed electronically. Number of Addenda: 0 Note Initiated On: 03/16/2020 1:25 PM Procedure Code(s): --- Professional --- 06439, Colonoscopy, flexible; diagnostic, including collection of specimen(s) by brushing or washing, when performed (separateprocedure) --- Technical --- 89611, Colonoscopy, flexible; diagnostic, including collection of specimen(s) by brushing or washing, when performed (separateprocedure) Diagnosis Code(s): --- Professional --- Z86.010, Personal history of colonic polyps --- Technical --- Z86.010, Personal history of colonic polyps CPT copyright 2018 [employer]. All rights reserved. The codes documented in this report are preliminary and upon numerical control lathe operator reviewmay be revised to meet current compliance requirements. Procedure Date: 03/16/2020 1:25:[address] [place] [id number] [place] Katja Olvera MD GI PROCEDURE ORDERABLES Final Result * (ABNORMAL) Comprehensive metabolic panel (02/22/2020 9:53 AM EDT) SODIUM 140 133 - 146 mmol/L [facility] POTASSIUM 4.9 3.3 - 5.1 mmol/L [facility] CHLORIDE 101 96 - 108 mmol/L [facility] CO2 26 21 - 35 mmol/L [facility] BUN 19 6 - 19 mg/dL [facility] CREATININE 0.90 0.5 - 1.5 mg/dL [facility] GLUCOSE 115(H) 70 - 99 mg/dL [facility] ALBUMIN 4.1 3.9 - 4.8 g/dL [facility] TOTAL PROTEIN 6.9 6.5 - 8.0 g/dL [facility] CALCIUM 8.8 8.4 - 10.3 mg/dL [facility] ALKALINE PHOSPHATASE 113 39 - 117 U/L [facility] TOTAL BILIRUBIN 0.3 0.0 - 1.2 mg/dL [facility] AST 28 0 - 37 U/L [facility] ALT 26 0 - 40 U/L [facility] GLOBULIN 2.8 1 - 4.8 g/dL [facility] EGFR 94 >59 mL/min/1.7 3m2 [facility] Comment:Estimated glomerular filtration rate calculated using the CKD-EPI equation. ANION GAP 18 10 - 20 mmol/L [facility] Blood 02/22/2020 9:53 AM EDT 02/22/2020 10:00 AM EDT Nuzhat Gray CNP LAB BLOOD ORDERABLES Final Result Performing Organization Address City/State/[facility] Co de Phone Number [address] [address] from Last 3 Months or Most Recently Relevant to Health Maintenance Insurance [facility] [place] [address] [place] [address] [place] [address] [place] [address] [place] [address] [place] [address] [facility] Care Teams Typing Office Worker Relationship Specialty Start Date End Date Katja Olvera MD [address] [place] [address] PCP - General Internal Medicine 02/22/20 Additional Source Comments The information contained in this document represents components of the legal health record. It is not the complete legal health record.[facility]
--- OUTSIDE RECORDS SUMMARY | 2025-04-06 09:07 | XMS_ITS | Encounter Summary ---
Author Organization [facility] Address [address] [place] [address] Phone Care Team Providers Care Seafood Clerk Name Role Phone Katja Olvera MD Primary Care Provider [phone] Encounter Details Date Type Department Care Team (Late st Contact Info) Description 03/16/2020 Procedure Pass [facility] Endoscopy Admitting Dept Virtual Department [address] [place] [address] Social History Tobacco Use Types Packs/Day Years Used Date Smoking Tobacco: Never Smokeless Tobacco: Never Alcohol Use Standard Drinks/Week Comments Yes 30 (1 standard drink = 0.6 oz pu re alcohol) Sex and Gender Information Value Date Recorded Sex Assigned at Not on file Legal Sex Male 9:41 AM EDT Gender Identity Not on file Sexual Orientation Not on file documented as of this encounter Plan of Treatment Not on file documented as of this encounter Visit Diagnoses Not on filedocumented in this encounter Care Teams Seafood Clerk Relationship Specialty Start Date End Date Katja Olvera MD [address] [address] PCP - General Internal Medicine 02/22/20 documented as of this encounter Additional Source Comments The information contained in this document represents components of the legal health record. It is not the complete legal health record.[facility]
--- OUTSIDE RECORDS SUMMARY | 2025-04-06 09:07 | XMS_ITS | Encounter Summary ---
Author Organization [facility] Address [address] [place] [address] Phone Care Team Providers Care Cyber Security Engineer Name Role Phone Katja Olvera MD Primary Care Provider [phone] Encounter Details Date Type Department Care Team (Latest Contact Info) Description 02/22/2020 Transcribe Orders [facility] [address] [place] [address] Nuzhat Gray CNP [address] [place] [address] [email or web address] Gastroesophageal reflux disease, esophagitis presence not specified (Primary Dx); Abnormal bowel habits; Personal history of colonic polyps Social History Tobacco Use Types Packs/Day Years Used Date Smoking Tobacco: Never Assessed Sex and Gender Information Value Date Recorded Sex Assigned at Not on file Legal Sex Male 9:41 AM EDT Gender Identity Not on file Sexual Orientation Not on file documented as of this encounter Plan of Treatment Not on file documented as of this encounter Results * (ABNORMAL) Vitamin B12 (02/22/2020 9:53 AM EDT) VITAMIN B12 193(L) 232 - 1,245 pg/mL [facility] Blood 02/22/2020 9:53 AM EDT 02/22/2020 10:00 AM EDT us Nuzhat Gray CNP LAB BLOOD ORDERABLES Final Result [facility] [address] [place] [address] * (ABNORMAL) Ferritin (02/22/2020 9:53 AM EDT) FERRITIN 17(L) 30 - 400 ug/L [facility] Blood 02/22/2020 9:53 AM EDT 02/22/2020 10:00 AM EDT Nuzhat Gray [facility] LAB BLOOD ORDERABLES Final Result Performing Organization Address City/[facility]/ZIP Co de Phone Number [address] [address] * Folate (02/22/2020 9:53 AM EDT) Pathologist [facility] FOLIC ACID 12.7 4.2 - 19.9 ng/mL [facility] Blood 02/22/2020 9:53 AM EDT 02/22/2020 10:00 AM EDT Nuzhat Gray [facility] LAB BLOOD ORDERABLES Final Result Performing Organization Address [facility] Co de Phone Number [address] [address] * (ABNORMAL) Iron and iron binding capacity (02/22/2020 9:53 AM EDT) Pathologist [facility] IRON 26(L) 45 - 160 ug/dL [facility] IRON BINDING CAPACITY 449(H) 228 - 428 ug/dL [facility] TRANSFERRIN SATURAT. 6(L) 20 - 55 % [facility] Blood 02/22/2020 9:53 AM EDT 02/22/2020 10:00 AM EDT Nuzhat Gray [facility] LAB BLOOD ORDERABLES Final Result Performing Organization Address City/[facility] Co de Phone Number [address] [address] * (ABNORMAL) Comprehensive metabolic panel (02/22/2020 9:53 AM EDT) SODIUM 140 133 - 146 mmol/L [facility] POTASSIUM 4.9 3.3 - 5.1 mmol/L [facility] CHLORIDE 101 96 - 108 mmol/L [facility] CO2 26 21 - 35 mmol/L [facility] BUN 19 6 - 19 mg/dL [facility] CREATININE 0.90 0.5 - 1.5 mg/dL [facility] GLUCOSE 115(H) 70 - 99 mg/dL [facility] ALBUMIN 4.1 3.9 - 4.8 g/dL [facility] TOTAL PROTEIN 6.9 6.5 - 8.0 g/dL [facility] CALCIUM 8.8 8.4 - 10.3 mg/dL [facility] ALKALINE PHOSPHATASE 113 39 - 117 U/L [facility] TOTAL BILIRUBIN 0.3 0.0 - 1.2 mg/dL [facility] AST 28 0 - 37 U/L [facility] ALT 26 0 - 40 U/L [facility] GLOBULIN 2.8 1 - 4.8 g/dL [facility] EGFR 94 >59 mL/min/1.7 3m2 [facility] Comment:Estimated glomerular filtration rate calculated using the CKD-EPI equation. ANION GAP 18 10 - 20 mmol/L [facility] Blood 02/22/2020 9:53 AM EDT 02/22/2020 10:00 AM EDT Nuzhat Gray [facility] LAB BLOOD ORDERABLES Final Result [address] [address] * (ABNORMAL) CBC and differential (02/22/2020 9:53 AM EDT) WBC 11.96(H) 4.00 - 11.00 K/uL [facility] Comment:Note Reference Range updates to all CBC and Differential results. RBC 3.90 3.90 - 5.69 M/uL [facility] HGB 10.7(L) 12.4 - 17.3 g/dL [facility] Comment:Note updated Referen ce Ranges for all CBC and Differential results. HCT 33.9(L) 37.0 - 51.0 % [facility] PLT 445(H) 140 - 430 K/uL [facility] MCV 86.9 78.0 - 97.0 fL [facility] MCH 27.4 25.0 - 33.0 pg [facility] MCHC 31.6(L) 32.0 - 36.0 g/dL [facility] RDW 12.8 11.0 - 15.0 % [facility] MPV 9.5 8.4 - 12.8 fl [facility] NRBC 0.00 0 /100 WBCs [facility] ABSOLUTE NRBC 0.00 0 K/uL [facility] DIFF METHOD Auto [facility] NEUTS 78.8(H) 43.0 - 75.0 % [facility] LYMPHS 11.6(L) 18.2 - 47.4 % [facility] MONOS 7.6 4.00 - 11.00 % [facility] EOS 1.4 0.0 - 8.0 % [facility] BASOS 0.3 0.0 - 2.0 % [facility] Granulocytes, immature (%) 0.3 0.0 - 0.9 % [facility] ABSOLUTE NEUTS 9.42(H) 1.80 - 7.70 K/uL [facility] ABSOLUTE LYMPHS 1.39 1.00 - 3.10 K/uL [facility] ABSOLUTE MONOS 0.91(H) 0.20 - 0.80 K/uL [facility] ABSOLUTE EOS 0.17 0.00 - 0.80 K/uL [facility] ABSOLUTE BASOS 0.03 0.00 - 0.09 K/uL [facility] Granulocytes, immature 0.04 0.00 - 0.05 K/uL [facility] Blood 02/22/2020 9:53 AM EDT 02/22/2020 10:00 AM EDT us Nuzhat Gray CNP LAB BLOOD ORDERABLES Final Result [facility] [address] [place] [address] documented in this encounter Visit Diagnoses Diagnosis Gastroesophageal reflux disease, esophagitis presence not specified- Primary Abnormal bowel habits Personal history of colonic polyps documented in this encounter Care Teams Cyber Security Engineer Relationship Specialty Start Date End Date Katja Olvera MD [facility] [place] [address] PCP - General Internal Medicine 02/22/20 documented as of this encounter Additional Source Comments The information contained in this document represents components of the legal health record. It is not the complete legal health record.[facility]
[2025-04-06 10:14] LABS: MANUAL DIFF FLAG NO
[2025-04-06 10:21] LABS: Appearance Urine Clear; Glucose Urine UA Negative (Negative); PH 6.0 (5.0-9.0); Specific Gravity - Urine 1.025 (1.005-1.025); UMIC TRIGGER UA YES
[2025-04-06 10:28] LABS: Hematocrit 36.7 % (42.0-52.0); Hemoglobin 11.6 g/dl (14.0-18.0); Imm Gran Abs Auto 0.02 X10*3/uL (0.00-0.03); Imm Gran Pct Auto 0.3 % (0.0-0.4); Lymphocytes Absolute Auto 1.1 X10*3/uL (1.2-4.9); Mean Corpuscular HGB Conc 31.6 g/dl (31.0-36.0); Mean Corpuscular Hemoglobin 27.7 pg (27.0-33.0); Mean Corpuscular Volume 87.6 fL (80.0-98.0); NRBC Abs Auto 0.000 X10*3/uL (0.0-0.012); NRBC Pct Auto 0.0 /100WBC (0.0-0.2); Platelet Count 382 X10*3/uL (160-400); Red Blood Count 4.19 X10*6/uL (4.60-5.80); White Blood Count 7.0 X10*3/uL (4.8-10.8)
[2025-04-06 10:42] LABS: Alanine Aminotransferase 15 U/L (0-40); Albumin Level 4.0 g/dL (3.5-5.0); Alkaline Phosphatase 96 U/L (39-117); Anion Gap 8 (12-20); Aspartate Amino Transferase 24 U/L (5-37); Blood Urea Nitrogen 17 mg/dL (9-16); Calcium 8.5 mg/dL (8.4-10.2); Carbon Dioxide 27 mmol/L (22-29); Chloride 108 mmol/L (96-108); Cholesterol 191 mg/dL (<200); Estimated Glomerular Filt Rate > 60; HDL Cholesterol 35 mg/dL (>40); Iron 45 mcg/dL (45-160); Percent Iron Saturation 13 % (15-50); Potassium 4.4 mmol/L (3.3-5.1); Sodium 139 mmol/L (135-145); Total Iron Binding Capacity 345 mcg/dL (228-428); Total Protein 6.7 g/dL (6.5-8.0); Triglycerides 167 mg/dL (<150); Unsaturated Iron Binding 300 ug/dL
[2025-04-06 11:02] LABS: Microalbum/Creatinine Ratio Ur 4.4 ug/mg cr (<30)
[2025-04-06 11:12] LABS: PSA,Total (Free>4and<10) 0.72 ng/mL (0.00-4.00)
== END 2025-04-06 08:32 | disposition home or self-care (01) ==
LOC: HO.HMGCLDS 08:31
PROVIDERS: PCP Internal Medicine; Visit Provider Internal Medicine
DX: Z00.00 Encounter for general adult medical examination without abnormal findings (principal); I10 Essential (primary) hypertension; I47.10 Supraventricular tachycardia, unspecified; E11.9 Type 2 diabetes mellitus without complications; E78.5 Hyperlipidemia, unspecified; D50.9 Iron deficiency anemia, unspecified
CPT/HCPCS: 36415; 80053; 80061; 81001; 82043; 82570; 83036; 83540; 84153; 85025

== ENCOUNTER 2025-04-07 10:31 | Outpatient (AMB) | payer OTHER, SELFPAY ==
[2025-04-07 11:10] VITALS: BP 124/74; PULSE 81; TEMP 36.8; O2SAT 96; BMI 35.7
--- NOTE | 2025-04-07 11:10 | A.OFFPC_ITS ---
Vital Signs 04/07/25 11:10 Height 6 ft Weight 263 lb BMI 35.7 BP 124/74 Blood Pressure Location Rt brachial Position Sitting Pulse 81 Pulse Source Pulse Oximeter Temp 98.2 F Temp Source Oral Pulse Oximetry (%) 96 Oxygen Delivery Method Room Air Intake Visit Reasons: PE Intake Note: Pt is here today for PE. Allergies olmesartan Adverse Reaction (Intermediate, Verified 04/07/25 11:10) Constipation Medication List - Last Reconciled 04/07/25 by Katja Olvera MD blood sugar diagnostic As directed blood sugar diagnostic (FreeStyle Lite Strips) 1 qd blood-glucose meter (FreeStyle [place] kit) As directed docusate sodium (Colace) 100 mg PO BID furosemide 20 mg PO DAILY hydrocortisone 2.5% 1 appl [place] BID-QID PRN 30 days lancets As directed lisinopril 10 mg PO DAILY metoprolol succinate ER 50 mg PO DAILY omeprazole 40 mg PO DAILY psyllium husk (Fiber (psyllium husk)) 0.52 grams PO BID PRN 60 days Tobacco use date assessed: 04/07/25 Dental Screening Dental Screen Date: 07/21/24 HPI PE HPI Details Pt presents for PE. [facility] Medical History (Updated 04/07/25 @ 12:15 by Katja Olvera MD) Hyperglycemia Bleeding hemorrhoids HTN (hypertension) Annual physical exam DJD (degenerative joint disease), lumbar Insomnia Obesity Normal colonoscopy Palpitations Hyperlipidemia STEPH (obstructive sleep apnea) Anemia GERD (gastroesophageal reflux disease) SVT (supraventricular tachycardia) Surgical History H/O endoscopy H/O colonoscopy Lipoma of back Family History Father Throat cancer Mother No problems noted. Maternal Grandmother No problems noted. Maternal Grandfather No problems noted. Paternal Grandmother No problems noted. Paternal Grandfather No problems noted. Brother History of open heart surgery Social History Household Members: None Housing: Apartment Do you presently have visiting nurse or other home services: No Alcohol intake: unknown Comment: pt refuses bed alarm, high falls interventions except socks and signage. Patient Tobacco Use Status: Never used Tobacco e-Cigarette/Vaping Use: Never Used Second Hand Smoke Exposure: No service: No Current occupational status: employed Cognitive needs: No Hearing needs: No Vision needs: Yes Questionnaire PHQ-9 Over the last 2 weeks, how often have you been bothered by any of the following problems? 1. Little interest or pleasure in doing things: not at all 2. Feeling down, depressed, or hopeless: not at all 3. Trouble falling or staying asleep, or sleeping too much: not at all 4. Feeling tired or having little energy: not at all 5. Poor appetite or overeating: not at all 6. Feeling bad about yourself - or that you are a failure or have let yourself or your family down: not at all 7. Trouble concentrating on things, such as reading the newspaper or watching television: not at all 8. Moving or speaking so slowly that other people could have noticed. Or the opposite - being so fidgety or restless that you have been moving around a lot more than usual: not at all 9. Thoughts that you would be better off or of hurting yourself in some way: not at all Total score: 0 Depression Screening Interpretation: Negative Depression Screening Done: Yes Source: Developed by Drs. Manoj Hernandez, Corey Car and colleagues, with an educational chas from [employer]. Thrive Questionnaire Date Thrive assessed: 07/21/24 AMBER-7 AMB Questionnaire AMBER-7 Date AMBER - 7 assessed: 07/21/24 Feeling nervous, anxious, or on edge: 0 = Not at all Not being able to stop or control worryin = Not at all Worrying too much about different things: 0 = Not at all Trouble relaxin = Not at all Being so restless that it is hard to sit still: 0 = Not at all Becoming easily annoyed or irritable: 0 = Not at all Feeling afraid as if something awful might happen: 0 = Not at all Total AMBER-7 score (0-4 normal; 5-9 mild; 10-14 moderate; 15-21 severe): 0 Source: Developed by Drs. Manoj Hernandez, Corey Car and colleagues, with an educational chas from [employer]. Review of Systems Const All systems reviewed & are unremarkable except as noted in HPI and below Eyes Reports no additional complaints ENT Reports no additional complaints Card Reports no additional complaints Resp Reports no additional complaints GI Reports no additional complaints Musc Reports no additional complaints Physical exam (Primary Care) Vital Signs: Last Vital Signs Temp 98.2 F 04/07/25 11:10 Pulse 81 04/07/25 11:10 BP 124/74 04/07/25 11:10 Pulse Ox 96 04/07/25 11:10 Oxygen Delivery Method Room Air 04/07/25 11:10 BMI result Body Mass Index 35.7 Tobacco/Smoking Status: Tobacco use Status Tobacco use date assessed 04/07/25 04/07/25 11:12 Patient Tobacco Use Status Never used Tobacco 04/07/25 11:12 e-Cigarette/Vaping Use Never Used 04/07/25 11:12 PHQ-9: PHQ-9 Score PHQ-9: Total score 0 04/07/25 11:12 Depression Screening Interpretation: Negative Thrive Assessment: Date of Thrive Assessment Date Thrive assessed 07/21/24 04/07/25 11:12 Const General: no acute distress HENMT Head: Yes normal to inspection Face and sinus: Yes normal facial exam Mouth: Normal oral and palatal mucosa present Eyes General: appearance normal, both eyes and all related structures Neck Neck: Yes no lymphadenopathy and Yes supple Resp Effort & Inspection: normal respiratory effort Auscultation: clear to auscultation bilaterally Cardio Rhythm: regular rhythm Heart sounds: S1 normal heart sound present and S2 normal heart sound present GI Inspection: Yes normal to inspection Palpation (GI): Soft to palpation Percussion: Yes normal to percussion Auscultation: normal bowel sounds Coding Level of Care Code Est Pt Prev Care 40-64y(00002) Diagnoses HTN (hypertension) I10 SVT (supraventricular tachycardia) I47.1 Hyperlipidemia E78.5 Annual physical exam Z00.00 Hyperglycemia R73.9 Assessment & Plan Assessment & Plan (1) HTN (hypertension): Code(s): I10 - Essential (primary) hypertension Category: Medical Plan: Continue medications (2) SVT (supraventricular tachycardia): Comment: on Metoprolol, Echo 08/2020 normal Code(s): I47.1 - Supraventricular tachycardia Category: Medical Plan: Continue metoprolol (3) Hyperlipidemia: Comment: diet controlled Code(s): E78.5 - Hyperlipidemia, unspecified Category: Medical Plan: Continue low-cholesterol diet increase physical activity weight loss discussed with the (4) Annual physical exam: Code(s): Z00.00 - Encounter for general adult medical examination without abnormal findings Category: Medical Plan: Well-balanced diet regular exercise weight loss discussed with the patient he is up-to-date with colonoscopy, patient follow-up in 6 months with a fasting labs before (5) Hyperglycemia: Code(s): R73.9 - Hyperglycemia, unspecified Category: Medical Plan: A1c is 6.2, ADA diet regular exercise weight loss discussed with the patient , follow-up in 6 months Orders: Orders Hemoglobin A1c 6 Months E78.5 - Hyperlipidemia, unspecified, I10 - Essential (primary) hypertension, R73.9 - Hyperglycemia, unspecified Comprehensive Telferner. Panel Fast 6 Months E78.5 - Hyperlipidemia, unspecified, I10 - Essential (primary) hypertension, R73.9 - Hyperglycemia, unspecified Lipid Panel 6 Months E78.5 - Hyperlipidemia, unspecified, I10 - Essential (primary) hypertension, R73.9 - Hyperglycemia, unspecified Complete Blood Count Auto Diff 6 Months E78.5 - Hyperlipidemia, unspecified, I10 - Essential (primary) hypertension, R73.9 - Hyperglycemia, unspecified Microalbumin, Random (w Creat) 6 Months E78.5 - Hyperlipidemia, unspecified, I10 - Essential (primary) hypertension, R73.9 - Hyperglycemia, unspecified
== END 2025-04-07 12:18 | disposition home or self-care (01) ==
LOC: HO.HMCC 10:32
PROVIDERS: PCP Internal Medicine; Visit Provider Internal Medicine
DX: I10 Essential (primary) hypertension (principal); I47.10 Supraventricular tachycardia, unspecified; E78.5 Hyperlipidemia, unspecified; Z00.00 Encounter for general adult medical examination without abnormal findings; R73.9 Hyperglycemia, unspecified

== ENCOUNTER → 2025-04-07 10:31 | Outpatient (BNVA) | payer OTHER, SELFPAY | PROVIDERS: PCP Internal Medicine; Visit Provider Internal Medicine | DX: Z00.00 Encounter for general adult medical examination without abnormal findings (principal); I10 Essential (primary) hypertension; I47.10 Supraventricular tachycardia, unspecified; E78.5 Hyperlipidemia, unspecified; R73.9 Hyperglycemia, unspecified | CPT/HCPCS: 99396 ==